=== PATIENT | female | born 1945 | race Caucasian/White ===

== ENCOUNTER 2019-10-11 17:24 | Inpatient (IN) | payer OTHER ==
[2019-10-11] MEDS ORDERED: LEVALBUTEROL 1.25 MG/3 ML NEB ONE (18:36)
--- NOTE | 2019-10-11 19:12 | RAD REPORT ---
EXAM DESCRIPTION: CT - Chest Abd Pelvis Wo Con - 10/11/2019 6:37 pm CLINICAL HISTORY: Shortness of breath and abdominal pain COMPARISON: 2015 TECHNIQUE: Computed axial tomography of the chest, abdomen and pelvis was obtained. Oral contrast wa s given. IV contrast was not requested. All CT scans are performed using dose optimization technique as appropriate and may include automated exposure control or mA/KV adjustment according to patient size. FINDINGS: The evaluation of mediastinum, skylar, vessels and solid organs is limited secondary to the lack of IV contrast administration Centrilobular emphysema. No mediastinal or hilar lymphadenopathy No pleural effusion. A pericardial effusion is not present The liver, spleen, pancreas, and adrenals appear grossly normal Small nonobstructing bilateral renal calculi. There is no evidence of diverticulitis. . Mild dilatation of several loops of jejunum with decompress ed distal jejunum and ileum IMPRESSION: COPD Small nonobstructing renal calculi Mild dilatation of several loops of jejunum may indicate a partial small bowel obstruction or ileus
[2019-10-11 19:27] LABS: Absolute Lymphocytes (CBC) 0.5 K/uL (0.7-4.9); Basophils % 0.6 % (0-1.3); Lymphocytes % 6.3 % (15.3-44.8); MPV 9.1 fL (7.6-11.3); RBC Red Blood Cell Count 4.36 M/uL (3.86-4.86)
[2019-10-11 19:28] LABS: Protime INR 0.99
--- NOTE | 2019-10-11 19:36 | RAD REPORT ---
EXAM DESCRIPTION: Lev Single View10/11/2019 6:59 pm CLINICAL HISTORY: sob COMPARISON: 2017 FINDINGS: The lungs are mildly hyperaerated The lungs appear clear of acute infiltrate. The heart is normal size IMPRESSION: No acute abnormalities displayed
[2019-10-11 19:43] LABS: ALT/SGPT 21 U/L (12-78); AST/SGOT 19 U/L (15-37); Albumin 3.3 g/dL (3.4-5.0); Alkaline Phosphatase 87 U/L (45-117); BUN Blood Urea Nitrogen 23 mg/dL (7-18); Bicarbonate 36 mmol/L (21-32); Bilirubin Direct < 0.1 mg/dL (0-0.2); Bilirubin Total 0.2 mg/dL (0.2-1.0); Glucose Level 145 mg/dL (74-106); NT PRO-BNP 1655 pg/mL (<125); Protein, Total 7.3 g/dL (6.4-8.2); Sodium Level 140 mmol/L (136-145); Troponin (Emerg Dept Use Only) < 0.02 ng/mL (0.0-0.045)
[2019-10-11 19:49] LABS: Magnesium 4.1 mg/dL (1.8-2.4)
[2019-10-11 20:23] LABS: Blood Morphology Comment NOT SEEN (NOT SEEN); Platelet Estimate ADEQ; Urine White Blood Cell Casts OK
--- NOTE | 2019-10-11 20:47 | ER ---
Nurse's Notes [facility] Name: Bebeto White Age: 73 yrs Sex: Female : 1945 Arrival Date: 10/11/2019 Time: 17:27 Bed 15 Private MD: Diagnosis: Small Bowel Obstruction Presentation: 10/11 17:40 Presenting complaint: Patient states: abdominal pain since 2 days ago. "I Just dont ls4 feel good". Transition of care: patient was not received from another setting of care. 17:40 Method Of Arrival: Ambulatory ls4 17:40 Risk Assessment: Do you want to hurt yourself or someone else? Patient reports no ls4 desire to harm self or others. Initial Sepsis Screen: Does the patient meet any 2 criteria? No. Patient's initial sepsis screen is negative. Does the patient have a suspected source of infection? No. Patient's initial sepsis screen is negative. Care prior to arrival: None. 17:40 Acuity: ROLF 2 ls4 10/12 00:47 Onset of symptoms is unknown. ls4 Triage Assessment: 10/11 20:04 General: Appears in no apparent distress. Behavior is calm, cooperative. Pain: Denies ls4 pain. Cardiovascular: Edema is 1+ to left foot and right foot. Respiratory: Reports shortness of breath at rest on exertion Airway is patent Respiratory effort is even, unlabored, Respiratory pattern is regular, Onset: The symptoms/episode began/occurred gradually, the patient has moderate shortness of breath Denies air hunger. GI: Bowel sounds hypoactive in right upper quadrant, left upper quadrant, right lower quadrant and left lower quadrant Abdomen is tender to palpation X 4 quads. Reports bloating. : No deficits noted. Derm: Skin is pink, warm \\T\\ dry. Musculoskeletal: No deficits noted. Historical: - Allergies: 20:02 BuSpar; ls4 20:02 Hydrocodone-Acetaminophen; ls4 20:02 myacin; ls4 20:02 Protonix; ls4 - PMHx: 20:02 COPD; Endometrosis; dumping syndrome; fatty liver; Hepatitis B; Hernia; Hypertension; ls4 Hypokalemia; ibs; Pancreatic problem; Migraines; Kidney stones; - Immunization history:: Adult Immunizations up to date, Last tetanus immunization: hep b positive . - Social history:: Smoking status: Patient denies any tobacco usage or history of. Patient/guardian denies using alcohol, street drugs, IV drugs, caffeine, The patient lives with family. - Ebola Screening: : No symptoms or risks identified at this time. Screenin:42 Abuse screen: Denies threats or abuse. Denies injuries from another. Nutritional ls4 screening: No deficits noted. Tuberculosis screening: No symptoms or risk factors identified. Fall Risk None identified. Assessment: 17:45 General: Appears in no apparent distress. obese, Behavior is calm, cooperative. Pain: ls4 Denies pain. Neuro: No deficits noted. Cardiovascular: Reports fatigue, Denies chest pain, Rhythm is regular. Respiratory: Airway is patent Respiratory effort is even, unlabored, shallow, Respiratory pattern is regular, Breath sounds are diminished. GI: Abdomen is non-distended, obese, Bowel sounds hypoactive in abdomen diffusely Abdomen is tender to palpation X 4 quads. : Denies burning with urination. Derm: Skin is pink, warm \\T\\ dry. Vital Signs: 20:12 BP 115 / 51; Pulse 80; Resp 26; Temp 98.5; Pulse Ox 90% on R/A; Weight 79.38 kg; Height ls4 0 ft. 1 in. (4 cm); Pain 0/10; 20:12 Body Mass Index 99858.67 (79.38 kg, 4 cm) ls4 20:12 NASAL CANULA APPLIED, 2 L ls4 ED Course: 17:27 Patient arrived in ED. mr 17:39 [facility] 17:39 Joe Jean-Baptiste MD is Attending Physician. [facility] 17:42 No provider procedures requiring assistance completed. ls4 17:42 Oxygen administration via nasal cannula \\T\\ 2L/min. ls4 17:42 Patient has correct armband on for positive identification. Placed in gown. Bed in low ls4 position. Call light in reach. Side rails up X2. bus driver/monitor on. Pulse ox on. NIBP on. Door closed. Warm blanket given. Pillow given. Head of bed elevated. Diet: Patient is NPO. 17:45 Marycruz Knapp, KIANNA is Primary Nurse. ls4 18:36 CT completed. Patient tolerated procedure well. Patient moved back from CT. bq 18:37 CT Chest Abdomen Pelvis W/O Contrast In Process Unspecified. EDMS 18:59 XRAY Chest (1 view) In Process Unspecified. EDMS 19:55 Basic Metabolic Panel Sent. ls4 19:55 CBC with Diff Sent. ls4 19:55 LFT's Sent. ls4 19:55 Magnesium Sent. ls4 19:55 NT PRO-BNP Sent. ls4 19:55 Inserted saline lock: 22 gauge in right antecubital area, using aseptic technique. ls4 Blood collected. 19:58 Triage completed. ls4 20:45 Joe Rodriguez MD is Hospitalizing Provider. [facility] 10/12 00:45 Arm band placed on. ls4 Administered Medications: 10/11 18:20 Drug: Xopenex (3) 1.25 mg Route: Inhalation; ls4 10/12 00:40 Not Given (Patient Refused): Mineral Oil 30 ml PO once ls4 Outcome: 10/11 20:46 Decision to Hospitalize by Provider. jm 23:20 Discharged to home ambulatory. ls4 23:20 Condition: stable ls4 23:20 Instructed on the need for admit. 23:21 Patient left the ED. ls4 Signatures: Dispatcher [employer] EDMS Pranav Fink PA PA jmm Rivera, Mary mr Quilty, Betty bq Stewart, Lisa, RN RN ls4
--- NOTE | 2019-10-11 20:47 | EDPHYS ---
Physician Documentation [facility] Name: Bebeto White Age: 73 yrs Sex: Female : 1945 Arrival Date: 10/11/2019 Time: 17:27 Bed 15 Private MD: ED Physician Joe Jean-Baptiste HPI: 10/11 18:04 This 73 yrs old Female presents to ER via Unassigned with complaints of Blood jmm Pressure Problem, Shortness Of Breath. 18:04 The patient has shortness of breath at rest. Onset: The symptoms/episode began/occurred jmm gradually, 3 day(s) ago. Duration: The symptoms are intermittent. The patient's shortness of breath is aggravated by nothing, is alleviated by nothing. Associated signs and symptoms: Pertinent negatives: chest pain. Patient states having a fall about 3 days ago with left sided abdominal pain. Denies vomiting, denies diarrhea. Patient has felt increasingly short of breath. . Historical: - Allergies: 20:02 BuSpar; ls4 20:02 Hydrocodone-Acetaminophen; ls4 20:02 myacin; ls4 20:02 Protonix; ls4 - PMHx: 20:02 COPD; Endometrosis; dumping syndrome; fatty liver; Hepatitis B; Hernia; Hypertension; ls4 Hypokalemia; ibs; Pancreatic problem; Migraines; Kidney stones; - Immunization history:: Adult Immunizations up to date, Last tetanus immunization: hep b positive . - Social history:: Smoking status: Patient denies any tobacco usage or history of. Patient/guardian denies using alcohol, street drugs, IV drugs, caffeine, The patient lives with family. - Ebola Screening: : No symptoms or risks identified at this time. ROS: 18:04 Constitutional: Positive for fatigue. jmm 18:04 Respiratory: Positive for cough, shortness of breath. 18:04 Abdomen/GI: Positive for abdominal pain. 18:04 All other systems are negative. Exam: 18:04 Constitutional: This is a well developed, well nourished patient who is awake, alert, jmm and in no acute distress. Head/Face: atraumatic. Eyes: EOMI, no conjunctival erythema appreciated ENT: Moist Mucus Membranes Neck: Trachea midline, Supple Chest/axilla: Normal chest wall appearance and motion. Cardiovascular: Regular rate and rhythm. No edema appreciated Respiratory: Normal respirations, no respiratory distress appreciated 18:04 Abdomen/GI: Inspection: abdomen appears normal, Bowel sounds: normal, Palpation: soft, mild abdominal tenderness, in the left upper quadrant and left lower quadrant. 18:04 Back: ROM is normal. 18:04 Musculoskeletal/extremity: ROM: intact in all extremities. 18:04 Skin: Appearance: Color: normal in color. 18:04 Neuro: Orientation: is normal, Mentation: is normal, Memory: is normal. 18:04 Psych: Behavior/mood is pleasant, cooperative. Vital Signs: 20:12 BP 115 / 51; Pulse 80; Resp 26; Temp 98.5; Pulse Ox 90% on R/A; Weight 79.38 kg; Height ls4 0 ft. 1 in. (4 cm); Pain 0/10; 20:12 Body Mass Index 48989.67 (79.38 kg, 4 cm) ls4 20:12 NASAL CANULA APPLIED, 2 L ls4 MDM: 17:56 Patient medically screened. [facility] 20:42 Data reviewed: vital signs, nurses notes. Counseling: I had a detailed discussion with lori the patient and/or guardian regarding: the historical points, exam findings, and any diagnostic results supporting the discharge/admit diagnosis, lab results, radiology results, the need for further work-up and treatment in the hospital. ED course: I discussed the patient with Dr. Jackson whom will consult on admission. I discussed the patient with Dr. Rodriguez whom accepted admission. . 10/11 18:04 Order name: Basic Metabolic Panel [facility] 10/11 18:04 Order name: CBC with Diff [facility] 10/11 18: Order name: LFT's [facility] 10/11 18:04 Order name: Magnesium [facility] 10/11 18:04 Order name: NT PRO-BNP [facility] 10/11 18:04 Order name: PT-INR; Complete Time: 19:52 [facility] 10/11 18: Order name: Troponin (emerg Dept Use Only); Complete Time: 19:52 [facility] 10/11 18:04 Order name: Blood Culture Adult (2) [facility] 10/11 18:04 Order name: Lactate; Complete Time: 19:52 [facility] 10/11 18: Order name: Procalcitonin; Complete Time: 20:02 [facility] 10/11 18:04 Order name: Basic Metabolic Panel; Complete Time: 19:52 EDMS 10/11 18:04 Order name: CBC with Automated Diff; Complete Time: 20:26 EDMS 10/11 18:04 Order name: Liver (Hepatic) Function; Complete Time: 19:52 EDMS 10/11 18:04 Order name: Magnesium; Complete Time: 19:52 EDMS 10/11 18:04 Order name: NT PRO-BNP; Complete Time: 19:52 EDMS 10/11 20:23 Order name: CBC Smear Scan; Complete Time: 20:26 EDMS 10/11 21:46 Order name: Comprehensive Metabolic Panel EDMS 10/11 21:46 Order name: Comprehensive Metabolic Panel EDMS 10/11 21:46 Order name: Lipase EDMS 10/11 21:46 Order name: Lipase EDMS 10/11 21:46 Order name: Magnesium EDMS 10/11 21:46 Order name: Magnesium EDMS 10/11 21:46 Order name: Phosphorus EDMS 10/11 21:46 Order name: Phosphorus EDMS 10/11 21:46 Order name: Protime (+INR) EDMS 10/11 21:46 Order name: Protime (+INR) EDMS 10/11 21:46 Order name: PTT, Activated Partial Thromb EDMS 10/11 21:46 Order name: PTT, Activated Partial Thromb EDMS 10/11 22:05 Order name: Urine Dipstick--Ancillary (enter results) lt1 10/11 22:07 Order name: Urine Dipstick-Ancillary; Complete Time: 22:57 EDMS 10/11 18:04 Order name: XRAY Chest (1 view); Complete Time: 19:36 [facility] 10/11 18:04 Order name: EKG; Complete Time: 18:05 [facility] 10/11 18:04 Order name: Cardiac monitoring; Complete Time: 19:55 [facility] 10/11 18:04 Order name: EKG - Nurse/Tech; Complete Time: 21:06 [facility] 10/11 18:04 Order name: IV Saline Lock; Complete Time: 19:55 [facility] 10/11 18:04 Order name: Labs collected and sent; Complete Time: 19:55 [facility] 10/11 18:04 Order name: O2 Per Protocol; Complete Time: 19:55 [facility] 10/11 18:04 Order name: O2 Sat Monitoring; Complete Time: 19:55 [facility] 10/11 18:07 Order name: CT Chest Abdomen Pelvis W/O Contrast; Complete Time: 19:24 [facility] 10/11 20:08 Order name: Vital Signs; Complete Time: 20:32 [facility] 10/11 21:46 Order name: CONS Physician Consult EDMS 10/11 21:47 Order name: NPO EDMS Administered Medications: 18:20 Drug: Xopenex (3) 1.25 mg Route: Inhalation; ls4 10/12 00:40 Not Given (Patient Refused): Mineral Oil 30 ml PO once ls4 Disposition: 15:21 Co-signature as Attending Physician, Joe Jean-Baptiste MD. ma2 Disposition: 10/11/19 20:46 Hospitalization ordered by Joe Rodriguez for Inpatient Admission. Preliminary diagnosis is Small Bowel Obstruction. - Bed requested for Telemetry/MedSurg (Inpatient). - Status is Inpatient Admission. ls4 - Condition is Stable. - Problem is new. - Symptoms are unchanged. UTI on Admission? No Signatures: Dispatcher [employer] EDWY Pranav Fink PA PA Joe Whiting MD MD ma2 Marycruz Knapp RN RN ls4 Annie Rausch lt1 Corrections: (The following items were deleted from the chart) 10/11 22:03 20:46 Hospitalization Ordered by Joe Rodriguez MD for Inpatient Admission. Preliminary lt1 diagnosis is Small Bowel Obstruction. Bed requested for Telemetry/MedSurg (Inpatient). Status is Inpatient Admission. Condition is Stable. Problem is new. Symptoms are unchanged. UTI on Admission? No. [facility] 23:21 22:03 10/11/2019 20:46 Hospitalization Ordered by Joe Rodriguez MD for Inpatient ls4 Admission. Preliminary diagnosis is Small Bowel Obstruction. Bed requested for Telemetry/MedSurg (Inpatient). Status is Inpatient Admission. Condition is Stable. Problem is new. Symptoms are unchanged. UTI on Admission? No. lt1
[2019-10-11] MEDS ORDERED: ZOLPIDEM TARTRATE 5 MG TABLET PO PRN (21:42)
[2019-10-11] MEDS ORDERED: ACETAMINOPHEN 500 MG TAB PO PRN (21:42)
[2019-10-11] MEDS ORDERED: NA CHLORIDE 0.9% 1,000 ML IV SCH (22:00)
[2019-10-11 22:07] LABS: Urine Blood NEGATIVE (NEG); Urine Glucose NEGATIVE (NEG); Urine Protein NEGATIVE (NEG); Urine pH 8.5 (5.0-7.0)
[2019-10-11] MEDS ORDERED: MIRTAZAPINE 15 MG TAB PO ONE (23:35)
[2019-10-11] MEDS ORDERED: clonazePAM 0.5 MG TAB PO ONE (23:38)
[2019-10-12] MEDS ORDERED: CEFOXITIN SODIUM 1 GM/VIAL IVPB SCH
[2019-10-12 00:04] VITALS: BMI 34.2
[2019-10-12] MEDS ORDERED: CEFOXITIN/SWI 1gm 1 GM/10 ML SYR ONE (01:30)
[2019-10-12 05:56] LABS: Absolute Lymphocytes (CBC) 1.1 K/uL (0.7-4.9); Basophils % 0.3 % (0-1.3); Hematocrit 31.2 % (36.0-45.0); Lymphocytes % 21.7 % (15.3-44.8); MPV 8.9 fL (7.6-11.3); RBC Red Blood Cell Count 3.68 M/uL (3.86-4.86)
[2019-10-12 05:59] LABS: Protime INR 0.96
[2019-10-12 06:16] LABS: Albumin 2.6 g/dL (3.4-5.0); Bilirubin Total 0.2 mg/dL (0.2-1.0); Phosphorus 4.9 mg/dL (2.5-4.9); Potassium 4.3 mmol/L (3.5-5.1)
[2019-10-12 06:17] LABS: Magnesium 3.9 mg/dL (1.8-2.4)
[2019-10-12] MEDS ORDERED: MIRTAZAPINE 15 MG TAB PO PRN (07:09)
[2019-10-12] MEDS ORDERED: ALBUTEROL INHALER 60 PUFF/8 GM IH PRN (07:09)
--- NOTE | 2019-10-12 07:25 | P.HP ---
Certification for Inpatient Patient admitted to: Observation With expected LOS: <2 Midnights Patient will require the following post-hospital care: None Practitioner: I am a practitioner with admitting privileges, knowledge of patient current condition, hospital course, and medical plan of care. Services: Services provided to patient in accordance with Admission requirements found in Title 42 Section 412.3 of the Code of Federal Regulations Patient History Date of Service: 10/11/19 Reason for admission: Small-bowel obstruction-partial verses ileus History of Present Illness: Patient is a 73-year-old female who presents to the hospital with abdominal pain and intractable nausea and vomiting. Patient was having significant pain and came to the ER. She states she has been constipated and has not had a good bowel movement in a few days. She did try to take a laxative with very little relief. Sister pain was getting worse she came to the ER. In the ER x-ray revealed partial small-bowel obstruction worsen ileus. Patient was admitted for further observation. Patient does state that she is having flatus. Unlikely to be an obstruction. Will start patient on a diet in the morning and if tolerates then possible discharge if okay with General surgery. Patient does have a history of a jejunal bypass that occurred in the 1950s. She states [place] was one of the 1st [place] the [place]. She has done well since that procedure without a lot of difficulties. Patient has had colonoscopy in the past that did not reveal any abnormalities. Patient will be admitted for further treatment. Allergies buspirone HCl [From BuSpar] Adverse Reaction (Verified 09/20/12 16:23) hallucinate pantoprazole [From Protonix] Adverse Reaction (Verified 03/11/17 21:58) Dizziness Hydrocodone-Aceta Allergy (Uncoded 03/11/17 21:58) Nausea/Vomiting Hydrocodone-A Adverse Reaction (Uncoded 03/11/17 21:58) Nausea/Vomiting Hydrocodone-Kev Adverse Reaction (Uncoded 03/11/17 21:58) Nausea/Vomiting myacin Adverse Reaction (Uncoded 03/11/17 21:58) severe dehydration mycin Adverse Reaction (Uncoded 09/20/12 16:23) severe dehydration Home Medications: Albuterol Sulfate [Proair Hfa] 2 puff IH QID PRN 04/03/16 Diltiazem HCl [Diltiazem 24Hr Cd] 90 mg PO BID 04/03/16 Sertraline HCl 100 mg PO DAILY 04/03/16 Umeclidinium Brm/Vilanterol Tr [Anoro Ellipta 62.5-25 Mcg INH] 1 puff IH DAILY 04/03/16 Lipase/Protease/Amylase [Creon Dr 36,000 Units Capsule] 1 tab PO AC 03/11/17 Potassium Chloride [Klor-Con M10] 10 meq PO BID 03/11/17 Acetaminophen [Tylenol Arthritis] 650 mg PO Q8HP PRN 10/12/19 Calcium Carb/Vitamin D3/Vit K1 [Calcium + D Soft Chewable Tab] 1 tab PO BID Ferrous Gluconate 324 mg PO DAILY 10/12/19 Folic Acid 1 mg PO DAILY 10/12/19 Furosemide 40 mg PO BID 10/12/19 Hydralazine HCl 50 mg PO TID 10/12/19 Mirtazapine [Remeron] 15 mg PO BEDTIME PRN 10/12/19 Omeprazole [Prilosec] 40 mg PO DAILY 10/12/19 Spironolactone 50 mg PO DAILY 10/12/19 clonazePAM [Clonazepam] 0.5 mg PO TIDP PRN 10/12/19 traMADol HCL [Ultram*] 50 mg PO TIDP PRN 10/12/19 - Past Medical/Surgical History Has patient received pneumonia vaccine in the past: No Diabetic: No -: GERD -: HTN, left lower lobe lung cancer stage IA resected in 2016 at [facility] -: COPD -: Fatty liver -: History of pancreatic dysfunction -: Migraines -: IBS/dumping syndrome -: Kidney stones with ureteral stent -: Endometriosis -: History of hepatitis -: Tonsillectomy -: Cholecystectomy -: D&C -: CATARACT REMOVAL -: TUMMY TUCK -: Tubal ligation -: JEJUNAL BYPASS -: Left lobe lobectomy Psychosocial/ Personal History: The patient is of 51 years. She has 1 child. She does not work. - Family History Mother Medical History: Lung disease Notes: COPD Father Medical History: Lung disease Notes: COPD - Social History Smoking Status: Former smoker Alcohol use: No CD- Drugs: No Caffeine use: No Place of Residence: Home Review of Systems 10-point ROS is otherwise unremarkable Physical Examination - Vital Signs Temperature: 98.3 F Blood Pressure: 120/56 Pulse: 75 Respirations: 18 Pulse Ox (%): 96 - Physical Exam General: Alert, In no apparent distress, Oriented x3 HEENT: Atraumatic, PERRLA, Mucous membr. moist/pink, EOMI, Sclerae nonicteric Neck: Supple, 2+ carotid pulse no bruit, No LAD, Without JVD or thyroid abnormality Respiratory: Clear to auscultation bilaterally, Normal air movement Cardiovascular: Regular rate/rhythm, Normal S1 S2, No murmurs Gastrointestinal: Normal bowel sounds, Soft and benign, Non-distended, No rebound, No guarding, Distended Musculoskeletal: No clubbing, No swelling, No tenderness Integumentary: No rashes Neurological: Normal gait, Normal speech, Normal strength at 5/5 x4 extr, Normal tone, Sensation intact, Cranial nerves 3-12 intact, Normal affect Lymphatics: No axilla or inguinal lymphadenopathy - Studies Laboratory Data (last 24 hrs) 10/11/19 19:10: PT 11.7, INR 0.99 10/11/19 19:10: WBC 8.2, Hgb 11.7 L, Hct 37.0, Plt Count 222 10/11/19 19:10: Sodium 140, Potassium 4.0, BUN 23 H, Creatinine 2.13 H, Glucose 145 H, Magnesium 4.1 H*, Total Bilirubin 0.2, AST 19, ALT 21, Alkaline Phosphatase 87 Assessment & Plan - Problems (Diagnosis) (1) Partial small bowel obstruction Current Visit: Yes Status: Acute (2) Ileus Current Visit: Yes Status: Acute (3) H/O abdominal surgery Current Visit: Yes Status: Acute (4) Anemia Current Visit: No Status: Acute Qualifiers: Anemia type: unspecified type Qualified Code(s): D64.9 - Anemia, unspecified (5) COPD (chronic obstructive pulmonary disease) Current Visit: No Status: Chronic Qualifiers: COPD type: chronic bronchitis (6) History of lung cancer Current Visit: No Status: Chronic - Plan Plan: 1. IV hydration 2. IV antibiotics 3. Pain control 4. Liquid diet 5. Surgery consultation 6. Correct electrolyte abnormality 7. GI and DVT prophylaxis Discharge Plan: Home Plan to discharge in: Greater than 2 days - Advance Directives Does patient have a Living Will: Yes Does patient have a Durable POA for Healthcare: Yes - Code Status/Comfort Care Code Status Assessed: Yes Code Status: Full Code Critical Care: No Time Spent Managing PTS Care (In Minutes): 45
[2019-10-12] MEDS ORDERED: PROTEASE PO SCH (07:30)
[2019-10-12] MEDS ORDERED: LIPASE PO SCH (07:30)
[2019-10-12] MEDS ORDERED: AMYLASE PO SCH (07:30)
[2019-10-12] MEDS ORDERED: HOME MED 1 EA UNK (Spironolactone [Spironolactone] 50 MG) PO SCH (09:00)
[2019-10-12] MEDS ORDERED: HOME MED 1 EA UNK (Omeprazole [Prilosec] 40 MG) PO SCH (09:00)
[2019-10-12] MEDS: Umeclidinium Brm/Vilanterol Tr [Anoro Ellipta 62.5-25 Mcg Inh] IH SCH (09:00)
[2019-10-12] MEDS: CALCIUM CARB PO SCH ×2 (09:00→20:56)
[2019-10-12] MEDS ORDERED: HOME MED 1 EA UNK (Hydralazine Hcl [Hydralazine Hcl] 50 MG) PO SCH (09:00)
[2019-10-12] MEDS ORDERED: HOME MED 1 EA UNK (Potassium Chloride [Klor-Con M10] 10 MEQ) PO SCH (09:00)
[2019-10-12] MEDS ORDERED: ENOXAPARIN 40 MG/0.4 ML SQ SCH (09:00)
[2019-10-12] MEDS: VIT K1 PO SCH ×2 (09:00→20:56)
[2019-10-12] MEDS: VITAMIN D3 PO SCH ×2 (09:00→20:56)
[2019-10-12] MEDS ORDERED: FERROUS GLUCONATE 324 MG PO SCH (09:00)
[2019-10-12] MEDS: [UNRECOGNIZED DRUG - OTHER] PO SCH ×2 (09:00→20:56)
[2019-10-12] MEDS ORDERED: DILTIAZEM HCL 90 MG PO SCH ×2 (09:00→21:00)
[2019-10-12] MEDS: ENOXAPARIN 30 MG/0.3 ML SQ SCH (09:00)
--- NOTE | 2019-10-12 09:25 | P.PN ---
Subjective Date of Service: 10/12/19 Primary Care Provider: Dr. Gonzalez; Card-Dr. Jean Baptiste; GI-Dr. Calix Chief Complaint: Small-bowel obstruction-partial verses ileus Subjective: Improving, Doing well (Patient has had passage of gas. Patient reported bowel movement yesterday. Patient feels better. No significant nausea vomiting, abdominal pain.) Physical Examination - Vital Signs Temperature: 97.6 F Blood Pressure: 142/63 Pulse: 96 Respirations: 17 Pulse Ox (%): 95 - Physical Exam General: Alert, In no apparent distress, Oriented x3, Cooperative HEENT: Atraumatic Neck: Supple Respiratory: Clear to auscultation bilaterally, Normal air movement Cardiovascular: Normal pulses, Regular rate/rhythm Gastrointestinal: Normal bowel sounds, Soft and benign, Non-distended, No tenderness, No rebound, No guarding Musculoskeletal: No erythema, No tenderness, No warmth Integumentary: No tenderness/swelling, No erythema, No warmth, No cyanosis Neurological: Normal speech, Normal strength at 5/5 x4 extr, Normal tone, Normal affect - Studies Laboratory Data (last 24 hrs) 10/11/19 19:10: PT 11.7, INR 0.99 10/11/19 19:10: WBC 8.2, Hgb 11.7 L, Hct 37.0, Plt Count 222 10/11/19 19:10: Sodium 140, Potassium 4.0, BUN 23 H, Creatinine 2.13 H, Glucose 145 H, Magnesium 4.1 H*, Total Bilirubin 0.2, AST 19, ALT 21, Alkaline Phosphatase 87 Medications List Reviewed: Yes Assessment & Plan Discharge Plan: Home Plan to discharge in: 24 Hours Physician Review Additional Text: Impression: Abdominal pain, nausea and vomiting secondary to partial small bowel obstruction COPD on chronic oxygen Anemia of chronic disease GERD with history of angiodysplasia History pancreatic dysfunction Depression with anxiety History of lung cancer with resection Chronic renal disease stage III Plan: Abdominal pain, nausea and vomiting secondary to partial small bowel obstruction : Patient doing better. No significant abdominal pain, nausea and vomiting. Patient reported bowel movement yesterday. Passage of gas noted. Patient desires food. Will start with a clear liquid diet this morning and advanced to GI soft. If much improved then will consider discharge later today. Encourage ambulation. Await further evaluation by surgery and recommendation. Patient is to see GI tomorrow for EGD in [place]. COPD on chronic oxygen: Continue with home medication. Maintain oxygen above 93%. Anemia of chronic disease: Will monitor closely. Patient with history of angiodysplasia. Patient to have EGD tomorrow. GERD with history of angiodysplasia: Continue with medication. Patient is scheduled to have a EGD tomorrow in [place] with her GI specialist. History pancreatic dysfunction: Continue with pancreatic enzymes. Patient has follow up with GI tomorrow. Depression with anxiety: Continue medication. History of lung cancer with resection: Continues above. Chronic renal disease stage III: Overall stable. Will discontinue IV fluids. Continue 1500 cc per day fluid restriction. Patient seen by nephrology in [place]. Time Spent Managing Pts Care (In Minutes): 55
[2019-10-12] MEDS: TRAMADOL HCL 50 MG TAB PO PRN ×2 (09:50→23:42)
[2019-10-12] MEDS: FOLIC ACID 1 MG TABLET PO SCH (09:51)
[2019-10-12] MEDS: SERTRALINE HCL 50 MG TAB PO SCH (09:51)
[2019-10-12] MEDS: POTASSIUM CL SA 10 MEQ TAB PO SCH ×2 (09:52→20:55)
[2019-10-12] MEDS: FUROSEMIDE 40 MG TABLET PO SCH ×2 (09:52→20:55)
[2019-10-12] MEDS ORDERED: SPIRONOLACTONE 25 MG TABLET PO SCH ×2 (10:00→18:00)
[2019-10-12] MEDS ORDERED: PRO AIR INHALER IH PRN (10:25)
[2019-10-12] MEDS ORDERED: CEFOXITIN/SWI 1gm 1 GM/10 ML SYR IVP SCH (12:00)
[2019-10-12] MEDS: LIPASE/PROTEASE/AMYLASE CAP PO SCH ×2 (12:44→17:05)
[2019-10-12] MEDS: HYDROCODONE/APAP 7.5/325 MG TAB PO PRN ×2 (13:53→20:54)
[2019-10-12] MEDS: HYDRALAZINE HCL 25 MG TABLET PO SCH ×2 (15:07→20:54)
[2019-10-12] MEDS ORDERED: PANTOPRAZOLE 40MG TABLET PO SCH (18:00)
[2019-10-12] MEDS: clonazePAM 0.5 MG TAB PO PRN (18:55)
[2019-10-12] MEDS ORDERED: FAMOTIDINE 20 MG TAB PO SCH (21:00)
[2019-10-12] MEDS ORDERED: DILTIAZEM HCL 180 MG SR CAP PO SCH (21:00)
[2019-10-12] MEDS ORDERED: MIRTAZAPINE 15 MG TAB PO ONE (23:35)
[2019-10-13] MEDS: HYDROCODONE/APAP 7.5/325 MG TAB PO PRN ×3 (02:26→15:48)
[2019-10-13 06:18] VITALS: O2SAT 93
[2019-10-13] MEDS ORDERED: PANTOPRAZOLE 40MG TABLET PO SCH (07:30)
[2019-10-13] MEDS ORDERED: PNEUMOCOCCAL VACCINE 0.5 ML IMVAC ONE (08:00)
[2019-10-13] MEDS ORDERED: CALCIUM CARB 500MG/VIT D 200 IU TAB PO SCH (09:00)
[2019-10-13] MEDS: ENOXAPARIN 30 MG/0.3 ML SQ SCH (09:00)
[2019-10-13] MEDS ORDERED: FAMOTIDINE 20 MG TAB PO SCH (09:00)
[2019-10-13] MEDS ORDERED: FERROUS GLUCONATE 324 MG TAB PO SCH (09:00)
[2019-10-13] MEDS: Umeclidinium Brm/Vilanterol Tr [Anoro Ellipta 62.5-25 Mcg Inh] IH SCH (09:00)
[2019-10-13] MEDS: LIPASE/PROTEASE/AMYLASE CAP PO SCH ×3 (09:09→16:24)
[2019-10-13] MEDS: FUROSEMIDE 40 MG TABLET PO SCH (09:09)
[2019-10-13] MEDS: SERTRALINE HCL 50 MG TAB PO SCH (09:11)
[2019-10-13] MEDS: FOLIC ACID 1 MG TABLET PO SCH (09:12)
[2019-10-13] MEDS: POTASSIUM CL SA 10 MEQ TAB PO SCH (09:13)
[2019-10-13] MEDS: HYDRALAZINE HCL 25 MG TABLET PO SCH ×2 (09:16→13:08)
[2019-10-13] MEDS: ONDANSETRON 4 MG/2 ML VIAL IV PRN ×2 (09:18→15:48)
--- NOTE | 2019-10-13 09:28 | P.DS ---
Admission Date: 10/11/19 Discharge Date: 10/13/19 Primary Care Provider: Dr. Gonzalez; Card-Dr. Jean Baptiste; GI-Dr. Calix Disposition: ROUTINE DISCHARGE Discharge Condition: GOOD Reason for Admission: Small-bowel obstruction-partial verses ileus Consultations: Surgery-Dr. Jackson Procedures: CXR: COMPARISON: 2017 FINDINGS: The lungs are mildly hyperaerated The lungs appear clear of acute infiltrate. The heart is normal size IMPRESSION: No acute abnormalities displayed CT scan: COMPARISON: 2016 TECHNIQUE: Computed axial tomography of the chest, abdomen and pelvis was obtained. Oral contrast was given. IV contrast was not requested. All CT scans are performed using dose optimization technique as appropriate and may include automated exposure control or mA/KV adjustment according to patient size. FINDINGS: The evaluation of mediastinum, skylar, vessels and solid organs is limited secondary to the lack of IV contrast administration Centrilobular emphysema. No mediastinal or hilar lymphadenopathy No pleural effusion. A pericardial effusion is not present The liver, spleen, pancreas, and adrenals appear grossly normal Small nonobstructing bilateral renal calculi. There is no evidence of diverticulitis. . Mild dilatation of several loops of jejunum with decompressed distal jejunum and ileum IMPRESSION: COPD Small nonobstructing renal calculi Mild dilatation of several loops of jejunum may indicate a partial small bowel obstruction or ileus Medical Problem list: Abdominal pain, nausea and vomiting secondary to partial small bowel obstruction , resolved COPD requiring chronic oxygen Anemia of chronic disease GERD with history of angiodysplasia History pancreatic dysfunction Depression with anxiety History of lung cancer with resection Chronic renal disease stage III Chronic diastolic CHF Brief History of Present Illness: 73-year-old female with multiple medical problems presented to emergency room with increased nausea and vomiting with abdominal pain. Patient was evaluated emergency room. Patient found to have partial small-bowel obstruction. Patient was admitted for further evaluation and treatment. Hospital Course: Patient presented with abdominal pain, nausea and vomiting. This was secondary to a partial small-bowel obstruction. During the course of her stay her diet was slowly advanced. Her condition resolved. At discharge she is able the tolerate a GI soft diet. She is without any significant abdominal pain, nausea or vomiting. She has passed gas and had bowel movement. Patient would be discharged home. Patient is to see GI here soon for EGD in [place]. Patient with history of chronic constipation. Recommend to continue with a stool softener. Further recommendations can come from her GI specialist. Patient with history of COPD and history of lung cancer with resection. During the course her stay it was found that the patient required oxygen. Prior to discharge home oxygen will be arranged to maintain sats above 93%. Patient sees pulmonology in [place]. Recommend a follow up with pulmonology in 1-2 weeks to further address and monitor. Patient will continue with her COPD medication-Anoro 1 puff daily and Pro air 2 puffs 3 times a day as needed for shortness of breath.. Patient also with underlying anemia of chronic disease. Patient will continue with iron 325 mg daily and folic acid 1 mg daily.. Recommend follow up with her PCP to further monitor. Patient with history of GERD and angiodysplasia. Patient is to have EGD here soon with GI. Patient may continue with Prilosec 40 mg twice daily. Patient with hypertension. At discharge she will continue with diltiazem CD 90 mg 1 pill twice daily and hydralazine 50 mg 1 pill 3 times a day. Further adjustment can be done by her PCP or cardiology. Patient with chronic diastolic CHF. Patient will continue with a 1500 cc per day fluid restriction and low-salt diet. Patient will continue with diuretic therapy including Lasix 40 mg 1 pill twice daily, Aldactone 50 mg daily, and potassium supplementation. Further adjustment can be done by her piper helper. Patient with depression and anxiety. At discharge she will continue with sertraline 100 mg daily, clonazepam 0.5 mg 3 times a day as needed for anxiety, and mirtazapine 15 mg at bedtime. Patient with pancreatic dysfunction. At discharge she will continue with Creon 1 pill with meals. Patient may continue with her chronic pain medication-tramadol 50 mg 3 times a day as needed for pain. Limited supply of medication will be provided. Patient with chronic renal disease stage III. This has remained stable. She may follow up with her furniture stainer in [place] to further address. Vital Signs/Physical Exam: Temp Pulse Resp BP Pulse Ox 97.3 F 76 18 132/60 93 10/13/19 04:00 10/13/19 09:09 10/13/19 04:00 10/13/19 09:09 10/13/19 04:00 General: Alert, In no apparent distress, Oriented x3, Cooperative HEENT: Atraumatic Neck: Supple Respiratory: Clear to auscultation bilaterally, Normal air movement Cardiovascular: Normal pulses, Regular rate/rhythm Gastrointestinal: Normal bowel sounds, Soft and benign, Non-distended, No tenderness, No masses, No rebound, No guarding Musculoskeletal: No erythema, No tenderness, No warmth Integumentary: No tenderness/swelling, No erythema, No warmth, No cyanosis Neurological: Normal speech, Normal strength at 5/5 x4 extr, Normal tone, Normal affect Laboratory Data at Discharge: WBC 5.3 K/uL (4.3-10.9) D 10/12/19 05:15 Hgb 9.9 g/dL (12.0-15.0) L 10/12/19 05:15 Hct 31.2 % (36.0-45.0) L D 10/12/19 05:15 Plt Count 153 K/uL (152-406) D 10/12/19 05:15 PT 11.3 SECONDS (9.5-12.5) 10/12/19 05:15 INR 0.96 10/12/19 05:15 APTT 24.7 SECONDS (24.3-36.9) 10/12/19 05:15 Sodium 143 mmol/L (136-145) 10/12/19 05:15 Potassium 4.3 mmol/L (3.5-5.1) 10/12/19 05:15 BUN 19 mg/dL (7-18) H 10/12/19 05:15 Creatinine 1.84 mg/dL (0.55-1.3) H 10/12/19 05:15 Glucose 87 mg/dL (74-106) 10/12/19 05:15 Phosphorus 4.9 mg/dL (2.5-4.9) 10/12/19 05:15 Magnesium 3.9 mg/dL (1.8-2.4) H* 10/12/19 05:15 Total Bilirubin 0.2 mg/dL (0.2-1.0) 10/12/19 05:15 AST 14 U/L (15-37) L 10/12/19 05:15 ALT 16 U/L (12-78) 10/12/19 05:15 Alkaline Phosphatase 64 U/L (45-117) 10/12/19 05:15 Lipase 46 U/L (73-393) L 10/12/19 05:15 Home Medications: Albuterol Sulfate [Proair Hfa] 2 puff IH QID PRN 04/03/16 Diltiazem HCl [Diltiazem 24Hr Cd] 90 mg PO BID 04/03/16 Sertraline HCl 100 mg PO DAILY 04/03/16 Umeclidinium Brm/Vilanterol Tr [Anoro Ellipta 62.5-25 Mcg INH] 1 puff IH DAILY 04/03/16 Lipase/Protease/Amylase [Sangeetaon Dr 36,000 Units Capsule] 1 tab PO AC 03/11/17 Potassium Chloride [Klor-Con M10] 10 meq PO BID 03/11/17 Acetaminophen [Tylenol Arthritis] 650 mg PO Q8HP PRN 10/12/19 Calcium Carb/Vitamin D3/Vit K1 [Calcium + D Soft Chewable Tab] 1 tab PO BID Ferrous Gluconate 324 mg PO DAILY 10/12/19 Folic Acid 1 mg PO DAILY 10/12/19 Furosemide 40 mg PO BID 10/12/19 Hydralazine HCl 50 mg PO TID 10/12/19 Mirtazapine [Remeron] 15 mg PO BEDTIME PRN 10/12/19 Omeprazole [Prilosec] 40 mg PO BID 10/12/19 Spironolactone 50 mg PO DAILY 10/12/19 clonazePAM [Clonazepam] 0.5 mg PO TIDP PRN 10/12/19 traMADol HCL [Ultram*] 50 mg PO TIDP PRN #15 tab 10/13/19 New Medications: traMADol HCL [Ultram*] 50 mg PO TIDP PRN #15 tab PRN Reason: Pain Scale 2-4 (Mild) Patient Discharge Instructions: 1. Recommend follow up with her PCP in 1 week to follow up this hospitalization. 2. Patient presented with abdominal pain, nausea and vomiting. This was secondary to a partial small-bowel obstruction. During the course of her stay her diet was slowly advanced. Her condition resolved. At discharge she is able the tolerate a GI soft diet. She is without any significant abdominal pain, nausea or vomiting. She has passed gas and had bowel movement. Patient would be discharged home. Patient is to see GI here soon for EGD in [place]. Patient with history of chronic constipation. Recommend to continue with a stool softener. Further recommendations can come from her GI specialist. 3. Patient with history of COPD and history of lung cancer with resection. During the course her stay it was found that the patient required oxygen. Prior to discharge home oxygen will be arranged to maintain sats above 93%. Patient sees pulmonology in [place]. Recommend a follow up with pulmonology in 1-2 weeks to further address and monitor. Patient will continue with her COPD medication-Anoro 1 puff daily and Pro air 2 puffs 3 times a day as needed for shortness of breath.. 4. Patient also with underlying anemia of chronic disease. Patient will continue with iron 325 mg daily and folic acid 1 mg daily.. Recommend follow up with her PCP to further monitor. 5. Patient with history of GERD and angiodysplasia. Patient is to have EGD here soon with GI. Patient may continue with Prilosec 40 mg twice daily. 6. Patient with hypertension. At discharge she will continue with diltiazem CD 90 mg 1 pill twice daily and hydralazine 50 mg 1 pill 3 times a day. Further adjustment can be done by her PCP or cardiology. 7. Patient with chronic diastolic CHF. Patient will continue with a 1500 cc per day fluid restriction and low-salt diet. Patient will continue with diuretic therapy including Lasix 40 mg 1 pill twice daily, Aldactone 50 mg daily, and potassium supplementation. Further adjustment can be done by her piper helper. 8. Patient with depression and anxiety. At discharge she will continue with sertraline 100 mg daily, clonazepam 0.5 mg 3 times a day as needed for anxiety, and mirtazapine 15 mg at bedtime. 9. Patient with pancreatic dysfunction. At discharge she will continue with Creon 1 pill with meals. 10. Patient may continue with her chronic pain medication-tramadol 50 mg 3 times a day as needed for pain. A limited supply of medication will be provided. Diet: AHA Activity: Fall precautions Time spent managing pt's care (in minutes): 55
[2019-10-13] MEDS: clonazePAM 0.5 MG TAB PO PRN (11:19)
[2019-10-13] MEDS: TRAMADOL HCL 50 MG TAB PO PRN (13:08)
[2019-10-13 18:07] VITALS: BP 117/53; TEMP 99.1
== END 2019-10-13 17:59 | disposition home or self-care (01) | DRG 389 ==
LOC: ER 17:24 → ERHOLD 22:04 → 2ND 22:49
PROVIDERS: ADMIT Family Medicine; ATTEND Hospitalist
DX: K56.600 Partial intestinal obstruction, unspecified as to cause (principal); I13.0 Hypertensive heart and chronic kidney disease with heart failure and stage 1 through stage 4 chronic kidney disease, or unspecified chronic kidney disease; I50.32 Chronic diastolic (congestive) heart failure; J44.9 Chronic obstructive pulmonary disease, unspecified; D64.9 Anemia, unspecified; F41.8 Other specified anxiety disorders; N18.3 Chronic kidney disease, stage 3 (moderate); K21.9 Gastro-esophageal reflux disease without esophagitis; Z99.81 Dependence on supplemental oxygen; Z85.118 Personal history of other malignant neoplasm of bronchus and lung; K86.89 Other specified diseases of pancreas
CPT/HCPCS: 36415; 71045; 71250; 74176; 80048; 80053; 80076; 81003; 83605; 83690; 83735; 83880; 84100; 84145; 84484; 85025; 85610; 85730; 87040; 99285; J0694; J1650; J2405; J7030

== ENCOUNTER 2020-05-10 13:30 | Emergency (ER) | payer OTHER ==
--- OUTSIDE RECORDS SUMMARY | 2020-05-10 13:56 | XMS REPORT | Clinical Summary ---
:1945 Author Organization [facility] Address [address] [place] [address] Care Team Providers Name Role Phone Jania Adams MD Primary Care Provider Allergies Active Allergy Reactions Severity Noted Date Comments Aminoglycosides GI Intolerance 05/18/2016 Denies winter h Sulfamethoxazole-Trimeth Other (See 04/09/2017 Psy chiatric oprim Comments) episode/Seroton in syndrom Glycopyrrolate-Formotero 01/31/2018 l Buspirone Other (See 04/17/2016 hallucinations Comments) Erythromycin GI Intolerance 04/09/2017 All Mycins Hydrocodone Other (See 04/09/2017 Potential psych iatric Comments) disorder Levofloxacin GI Intolerance 02/10/2019 Oxybutynin Other (See 04/09/2017 Poss psychiatri c Comments) episode/Seroton in syndrome Pantoprazole Other (See 04/17/2016 dizziness Comments) Tetanus Vaccines And Rash Low 04/17/2016 Toxoid Medications Medication Sig Dispensed Refills Start End Status Date Date ANORO ELLIPTA 62.5-25 Inhale 1 puff 3 02/29/20 Active mcg/actuation blister daily. 16 with device fstumb-lnfzitol-xvxcp Take 1 capsule 0 Active se (CREON) by mouth with 36,000-114,000- snacks (And TID 180,000 unit with meals). capsule,delayed release(DR/EC) folic acid (FOLVITE) Take 1 mg by 0 03/26/20 Active 1 MG tablet mouth daily. 17 ipratropium-albuterol Take 3 mL by 0 Active (DUO-NEB) 0.5-2.5 nebulization as mg/3 mL nebulizer needed for wheezing. sertraline (ZOLOFT) Take 1 tablet 30 tablet 3 04/09/20 Active 100 MG tablet (100 mg total) 19 by mouth every morning. diltiazem (CardIZEM) Take 90 mg by 0 Active 90 MG tablet mouth 2 (two) times a day. ferrous gluconate Take 1 tablet 30 tablet 11 08/04/20 Active (FERGON) 324 MG (324 mg total) 19 020 tablet by mouth daily with breakfast. hydrALAZINE Take 50 mg by 0 Acti ve (APRESOLINE) 50 MG mouth 3 (three) tablet times a day. budesonide Take 0.5 mg by 0 Acti ve (PULMICORT) 0.5 mg/2 nebulization 2 mL nebulizer solution (two) times a day. cholecalciferol, Take 1 tablet 0 Active vitamin D3, (VITAMIN by mouth daily. D3) 125 mcg (5,000 unit) tablet acetaminophen Take by mouth. 0 A ctive (TYLENOL 8 HOUR ORAL) mirtazapine (REMERON) Take 15 mg by 0 Active 15 MG tablet mouth nightly. spironolactone Take 50 mg by 0 A ctive (ALDACTONE) 25 MG mouth 2 (two) tablet times a day. omeprazole (PriLOSEC) Take 40 mg by 0 Active 40 MG capsule mouth 2 (two) times a day. furosemide (LASIX) 40 Take 40 mg by 0 Active mg tablet mouth daily. clonAZEPAM (KlonoPIN) Take 1 mg by 0 Active 1 MG tablet mouth 2 (two) times a day as needed for seizures. flecainide acetate Take by mouth 2 0 Active (FLECAINIDE ORAL) (two) times a day. Unknown mg ranitidine (ZANTAC) Take 150 mg by 0 10/22 Discontinued 150 MG tablet mouth daily. 020 Daily at 1300 cyanocobalamin 1000 Take 1,000 mcg 0 10/22 Discontinued MCG tablet by mouth daily. 020 MAG HYDROX/ALUMINUM Take 5 mL by 0 Discontinued HYDROX/SMC (MYLANTA mouth 2 (two) 020 (Stop Taking at ORAL) times a day as Disch arge) needed. PROAIR HFA 90 Inhale 2 puffs 0 10/12/19 D iscontinued mcg/actuation inhaler every 6 (six) 17 020 (Stop Taking at hours as Discharge) needed. acetaminophen Take 325 mg by 0 D iscontinued (TYLENOL) 325 MG mouth every 6 020 (Stop Taking at tablet (six) hours as Disch arge) needed for fever. lidocaine (LIDODERM) 0 10/01/19 Discontinued 5 % 18 020 (Med List Cleanup) ondansetron (ZOFRAN) Take 4 mg by 0 12/21/19 Discontinued 4 MG tablet mouth every 8 020 (Sto p Taking at (eight) hours Discha rge) as needed for nausea or vomiting. potassium citrate Take 1 tablet 180 tablet 3 01/07/20 Discontinued (UROCIT-K) 15 mEq (15 mEq total) 020 tablet extended by mouth 2 releaseIndications: (two) times a Recurrent kidney day. stones calcium Take 2 tablets 180 tablet 6 01/07/20 Disc ontinued citrate-vitamin D2 by mouth 2 020 (Stop Taking at 250-100 mg-unit per (two) times a Discharge) tablet day. omeprazole (PriLOSEC) Take 40 mg by 0 02/23 Discontinued 40 MG capsule mouth daily 019 (Sto p Taking at before Discharge) breakfast. clonAZEPAM (KlonoPIN) Take 1 tablet 90 tablet 0 04/09/2006/24 5/2 0.5 MG tablet (0.5 mg total) 019 by mouth 2 (two) times a day as needed for seizures for up to 90 days. mirtazapine (REMERON) Take 1 tablet 30 tablet 3 04/09/20 02/0 2/2 Discontinued 15 MG tablet (15 mg total) 020 (St op Taking at by mouth Discharge) nightly. traMADol (ULTRAM) 50 Take 50 mg by 0 10/09 Discontinued mg tablet mouth 3 (three) 020 times a day as needed for moderate pain. metaxalone (SKELAXIN) Take 1 tablet 30 tablet 0 05/13/20 08/ 8/2 Discontinued 800 MG every 8 hrs prn 19 019 (Reo rder) tabletIndications: muscle spasms Acute right lumbar radiculopathy methylPREDNISolone follow package 21 tablet 0 05/13/20 (MEDROL, MELISSA,) 4 mg directions 019 tabletIndications: Acute right lumbar radiculopathy acetaminophen-codeine Acute Pain. 30 tablet 0 05/21/20 (TYLENOL WITH CODEINE Take 1-2 019 #3) 300-30 mg per tablets every 6 tabletIndications: hrs prn acute pain moderate to severe pain metaxalone (SKELAXIN) Take 1 tablet 30 tablet 0 05/21/2005/25 Discontinued 800 MG every 8 hrs prn 019 (Reo rder) tabletIndications: muscle spasms Acute right lumbar radiculopathy metaxalone (SKELAXIN) Take 1 tablet 30 tablet 0 06/10/2010/26 Discontinued 800 MG every 8 hrs prn 020 (Sto p Taking at tabletIndications: muscle spasms Discharge) Acute right lumbar radiculopathy acetaminophen-codeine chronic pain. 30 tablet 0 06/10/2006/24 (TYLENOL WITH CODEINE Take 1-2 019 #3) 300-30 mg per tablets every 6 tabletIndications: hrs prn chronic pain moderate to severe pain ferrous sulfate Take 1 tablet 90 tablet 0 07/30/20 (FERROUSUL) 325 (65 (325 mg total) FE) MG tablet by mouth 3 (three) times a day with meals for 30 days. omeprazole (PriLOSEC) Take 1 capsule 60 capsule 0 07/30/20 40 MG capsule (40 mg total) 019 by mouth 2 (two) times a day for 30 days. budesonide Take 2 mL (0.5 120 mL 0 07/30/20 Expi red (PULMICORT) 0.5 mg/2 mg total) by 019 mL nebulizer solution nebulization 2 (two) times a day for 30 days. flecainide (TAMBOCOR) Take 1 tablet 60 tablet 0 07/30/20 1202/23 50 MG tablet (50 mg total) 019 by mouth every 12 (twelve) hours for 30 days. furosemide (LASIX) 40 Take 1 tablet 30 tablet 0 07/31/20 7/2 mg tablet (40 mg total) 19 019 by mouth daily for 30 days. hydrALAZINE Take 1 tablet 90 tablet 0 07/30/202 Expi red (APRESOLINE) 50 MG (50 mg total) 19 019 tablet by mouth every 8 (eight) hours for 30 days. predniSONE Take 20 mg 30 tablet 0 07/30/20 (DELTASONE) 20 mg daily x 2 days 019 tablet then 10 mg daily x 2 days then 5 mg daily furosemide (LASIX) 40 Take 40 mg by 0 0 / Discontinued mg tablet mouth daily. 020 (Stop T aking at Discharge) spironolactone Take 50 mg by 0 10/26/ D iscontinued (ALDACTONE) 50 MG mouth daily. 020 (Stop Taking at tablet Discharge) flecainide (TAMBOCOR) Take 50 mg by 0 01/22 11/23 Discontinued 50 MG tablet mouth 2 (two) 020 (St op Taking at times a day. Dischar ge) potassium chloride Take 10 mEq by 0 Discontinued (K-DUR) 10 MEQ CR mouth 2 (two) 020 (Stop Taking at tablet times a day. Dischar ge) clonAZEPAM (KlonoPIN) Take 0.5 mg by 0 06/11 Discontinued 0.5 MG tablet mouth 2 (two) 020 (S top Taking at times a day as Disch arge) needed for anxiety. traMADol (ULTRAM) 50 Take 50 mg by 0 10/26 / Discontinued mg tabletIndications: mouth every 8 020 (Stop Taking at chronic pain (eight) hours Dis charge) as needed for moderate pain .chronic pain. acetaminophen Take 650 mg by 0 //2 D iscontinued (TYLENOL ARTHRITIS mouth every 8 020 (Stop Taking at PAIN) 650 MG 8 hr (eight) hours Discharge) tablet as needed for mild pain. omeprazole (PriLOSEC) Take 40 mg by 0 02/0 2/2 Discontinued 40 MG capsule mouth daily. 020 (St op Taking at Discharge) predniSONE Take 5 mg by 0 2 Discon tinued (DELTASONE) 5 mg mouth daily as 020 (Stop Taking at tablet needed. Discharge) cyanocobalamin 1,000 Inject 1,000 0 Discontinued mcg/mL injection mcg into the 020 (Stop Taking at shoulder, Discharge) thigh, or buttocks every 30 (thirty) days. of each month cefpodoxime (VANTIN) Take 1 tablet 10 tablet 0 10/26/1910/31 200 MG tablet (200 mg total) 20 020 by mouth 2 (two) times a day for 5 days. dicyclomine (BENTYL) Take 2 capsules 10 capsule 0 10/26/19 10 MG capsule (20 mg total) 20 020 by mouth 4 (four) times a day as needed (Abdominal pain) for up to 30 days. potassium citrate Take 1 mEq by 0 Discontinued (UROCIT-K) 15 mEq mouth 2 (two) 020 tablet extended times a day release with meals. traMADoL (ULTRAM) 50 Take 50 mg by 0 02/03 Discontinued mg tabletIndications: mouth every 6 020 (Stop Taking at acute pain (six) hours as Disc harge) needed for moderate pain .acute pain. clonAZEPAM (KlonoPIN) Take 1 mg by 0 02/03 Discontinued 1 MG tablet mouth 2 (two) 020 (Sto p Taking at times a day. Dischar ge) flecainide (TAMBOCOR) Take 1 tablet 60 tablet 0 02/03/2002/22 50 MG tablet (50 mg total) 20 020 by mouth 2 (two) times a day for 30 days. cefpodoxime (VANTIN) Take 1 tablet 10 tablet 0 02/03/2002/07 200 MG tablet (200 mg total) 20 020 by mouth 2 (two) times a day for 5 days. loperamide (IMODIUM) Take 1 capsule 20 capsule 0 02/03/2015/11 2 mg capsule (2 mg total) by 20 020 mouth 2 (two) times a day as needed for diarrhea for up to 10 days. lidocaine (LIDODERM) Place 1 patch 30 patch 0 02/05/2003/06 5 % on the skin 20 020 daily for 30 days. Remove & Discard patch within 12 hours or as directed by promethazine Take 25 mg by 0 Dis continued (PHENERGAN) 25 MG mouth every 6 020 (Therapy tablet (six) hours as compl eted) needed for nausea or vomiting. traMADoL (ULTRAM) 50 Take 50 mg by 0 03/24 Discontinued mg tabletIndications: mouth every 6 020 (Therapy acute pain (six) hours as comp leted) needed for moderate pain .acute pain. Active Problems Problem Noted Date Depression with suicidal ideation 01/30/2020 Salmonella gastroenteritis 10/23/2019 BIBI (acute kidney injury) 10/22/2019 CKD (chronic kidney disease) stage 3, GFR 30-59 ml/min 10/22/2019 COPD (chronic obstructive pulmonary disease) 0 Essential hypertension 10/22/2019 FERREIRA (nonalcoholic steatohepatitis) 10/22/2019 Physical deconditioning 10/22/2019 Osteoarthritis 10/22/2019 Squamous cell carcinoma of left lung 10/22/2019 Shortness of breath 10/22/2019 Gastroenteritis 10/22/2019 Anemia of chronic disease 10/22/2019 H/O: GI bleed 10/22/2019 Chronic respiratory failure with hypoxia 10/22/2019 Decompensated hepatic cirrhosis 10/22/2019 Severe sepsis 10/21/2019 Edema 07/21/2019 Iron deficiency anemia due to chronic blood loss 07/21 Overview: Added automatically from request for shawna rendon [id number] Chest pain 07/21/2019 Overview: Added automatically from request for shawna julieta [id number] COPD with acute exacerbation 03/10/2019 Gastrointestinal hemorrhage 03/10/2019 Overview: Added automatically from request for shawna rendon [id number] Vitamin D deficiency 05/29/2018 Secondary hyperparathyroidism 03/28/2018 Encounter for follow-up surveillance of lung cancer Renal stones 04/23/2017 Nausea 03/05/2017 Lung nodule 05/18/2016 Encounters Date Type Specialty Care Team Description External Home Quality Priyanka Knapp 020 Health Telephone Pain Medicine Pb [place] 020 MA Anesthesia Event Gastroenterology Dhother, 020 MD Ermias Shankar Teri, NP Surgery Gastroenterology Javier Webb EGD with A PC to GAVE Nishant Oakes MD Hospital Gastroenterology Javier Webb 020 Encounter MD Violette Travel 020 Lab Lab Odilia, Screening proce dure 020 MD Juan Jose Travel 020 Telemedicine Hepatology Odilia, Iron deficiency anemia due to chronic blood loss (Primary Dx); 020 MD Juan Jose GAVE (gastric a ntral vascular ectasia); NAFLD (nonalcoh olic fatty liver disease); Jim lesion, chronic; Gastroesophagea l reflux disease without esophagitis; Hepatic fibrosi s Telephone Hepatology Morris, 020 MAURILIO Whitehead Travel 020 Orders Only Hepatology Serban, NAFLD (nonalcoh olic fatty liver disease) (Primary Dx); 020 Nicki, CREDIT AUTHORIZER Iron deficienc y anemia due to chronic blood loss Telephone Hepatology [place], 020 MAURILIO [place] Telephone Hepatology [place], 020 MAURILIO [place] Surgery Gastroenterology Javier Webb EGD with A PC Nishant Oakes MD Anesthesia Event Gastroenterology Maykel Bowles, 020 Morena Willis, [employer] SUPERVISOR [facility] Gastroenterology Javier Webb 020 Chris Oakes MD Lab Lab Odilia, Pre-procedure l ab exam 020 MD Juan Jose [facility], 020 Ritu Dykes MD Travel 020 Telephone Hepatology Arturo, 020 MAURILIO [place] Telephone Hepatology Jaiden, 020 MAURILIO Izquierdo Telephone Hepatology Oral, Pre-procedure l ab exam 020 Janelle, CREDIT AUTHORIZER (Primary Dx) Orders Only Hepatology Mixon, 020 Janelle, CREDIT AUTHORIZER Orders Only Hepatology Serban, Screening proce dure (Primary 020 Nicki, CREDIT AUTHORIZER Dx) [facility] Radiology Odilia, Iron deficiency anemia due to chronic blood loss; 020 Encounter MD Juan Jose Abnormal liver enzymes; NAFLD (nonalcoh olic fatty liver disease); GAVE (gastric a ntral vascular ectasia); Jim lesion, chronic; Dysphagia, unsp ecified type Lab Lab Odilia, Canceled (Sched uling Error) 020 MD Juan Jose Telephone Access [place], 020 Ritu Dykes MD Travel 020 External Home Quality Priyanka Knapp 020 Health External Home Quality Priyanka Knapp 020 Health Travel 020 Telemedicine Hepatology Odilia, Iron deficiency anemia due to chronic blood loss (Primary Dx); 020 MD Juan Jose Abnormal liver enzymes; NAFLD (nonalcoh olic fatty liver disease); GAVE (gastric a ntral vascular ectasia); Jim lesion, chronic; Dysphagia, unsp ecified type; Screening proce dure Clinical Support [facility] 020 Services [facility], 020 Services Ruffin Patient Outreach Quality [place], 020 KIANNA Chiu [facility], 020 Services [place] Telephone Family Medicine Bryan, 020 Ritu Dykes MD [facility], 020 Services [place]uff[place] Travel 020 Hospital Nephrology Rehrer, Rotan Depression with suicidal ideation (Primary Dx); 020 - Encounter DO Sohail COPD with acute exacerbation (HCC); Tina Daly, Anemia, unspec ified type; 020 CKD (chronic kidney disease) stage 3, GF R 30-59 ml/min (HCC); Force, Chronic respira tory failure with hypoxia (HCC) Luis Felipe Castellanos MD Travel 020 Emergency [facility] ini tial [facility] 020 MD Mary (Primary Dx) Orders Only Pain Medicine Julien Workman Lumbar pain (Primary Dx) 020 MD Fredy Telephone Pain Medicine Pb [place] 020 MA Telephone Hepatology Oral, 020 GALLO Luis Telephone Hepatology Jordana 020 GALLO Caceres Refill Nephrology Nishant Marino MD Refill Nephrology Nishant Mraino MD Refill Nephrology Ned, 020 MD Karis Telephone Internal Medicine [place], 020 Ritu Dykes MD Telephone Hepatology Jordana, 020 GALLO Caceres [facility] Nephrology Oswald Marmolejo Sepsis with ac faye renal failure without septic shock, due to unspecified organism, unspecified acute renal failure type (HCC) (Primary Dx); 020 - Encounter MD Lucho BIBI (acute kidney injury) (HCC); Sarika Eli Colitis; 020 MD Barbi Shortness of breath; Matt, COPD with acute exacerbation (HCC) Jon Cosby III, MD Orders Only Pain Medicine Julien Workman Lumbar pain (Primary Dx) 020 MD Fredy Documentation Pain Medicine Julien Workman 020 MD Fredy Telephone Hepatology Arturo, 020 MAURILIO White[place] Telephone Neurosurgery Raquel Duarte 020 MD Estuardo Anesthesia Event Gastroenterology Maykel Bowles 020 MD Office Visit Pain Medicine Ji [place] Pain of righ t hip joint (Primary Dx); 020 MD Fredy Lumbar pain; History of rece nt fall Telephone Pain Medicine Pb [place] 020 MA Intake Access 019 Procedure visit Pain Medicine Ji [place] Lumbar ra diculopathy (Primary 019 MD Fredy Dx) Office Visit Pain Medicine Julien Workman Lumbar radic ulopathy (Primary Dx); Luis Daniel MD HNP (herniated nucleus pulposus), lumbar; Other chronic p ain Office Visit Hepatology Odilia, Abnormal liver enzymes (Primary Dx); Luis Ingram MD Iron deficiency anemia due to chronic blood loss; GAVE (gastric a ntral vascular ectasia); Jim lesion, chronic; NAFLD (nonalcoh olic fatty liver disease); Hepatic fibrosi s Office Visit Pain Medicine Ji Julien Lumbar radic ulopathy (Primary Dx); Luis Daniel MD HNP (herniated nucleus pulposus), lumbar; Other chronic p ain Orders Only Hepatology Sersammi, 019 Nicki, CREDIT AUTHORIZER Telephone Hepatology Jordana, 019 Nicki, CREDIT AUTHORIZER Refill Family Medicine [place], Luis Dykes MD Telephone Internal Medicine Luis Adams MD Patient Outreach Quality Di Haynes, Luis RPH Telephone Internal Medicine Luis Adams MD Patient Outreach Quality [place] 019 Surgery Procedural Javier Jama MD Selective cor onary 019 Cardiology angiography [93 454 (CPT)] Surgery Gastroenterology Odilia, ESOPHAGOGAS TRODUODENOSCOPY 019 MD Juan Jose (EGD)/biopsies/ APC Anesthesia Event Gastroenterology Kaleigh Delvalle 019 MD Sd Shields Genie Lazo [facility] Ritu Dykes MD [facility] General Internal [facility], Iron defici ency anemia due to chronic blood loss (Primary Dx); 019 - Encounter Medicine Ben Shell MD Chest pain, un specified type; Generalized tereso ma; 019 COPD with acute exacerbation (HCC) Office Visit Pain Medicine Julien Workman Lumbar radic ulopathy (Primary Dx); 019 MD Fredy HNP (herniated nucleus pulposus), lumbar; Musculoskeletal pain, chronic Procedure visit Pain Medicine Julien Workman Lumbar ra diculopathy (Primary 019 MD Fredy Dx) Office Visit Pain Medicine Lily Russell, Lumbar radicul opathy (Primary Dx); 019 [employer] SUPERVISOR-C HNP (herniated nucleus pulposus), lumbar ; Julien Workman Musculoskelet al pain, chronic; MD Fredy Other chronic p ain Refill Internal Medicine Bryan, Acute righ t lumbar 019 Ritu radiculopathy MD Jania Telephone Internal Medicine Luis Adams MD Orders Only Endocrinology Eric, Secondary hype rparathyroidism 019 MAURILIO Lozano ([facility]) (Primary Dx) Telephone Family Medicine [place], 019 Ritu Dykes MD Telephone Family Medicine [place], 019 Ritu Dykes MD Telephone Internal Medicine [place], Luis Dykes MD Orders Only Neurosurgery Lily Russell, Lumbar radiculo chema (Primary Dx); 019 [employer] SUPERVISOR-[employer] HNP (herniated nucleus pulposus), lumbar Telephone [facility] Medicine [place], 019 Ritu Dykes MD Telephone [facility] Medicine [place], 019 Ritu Dykes MD Refill [facility] Medicine [place], Acute right lumbar 019 Ritu radiculopathy MD Jania Refill [facility] Medicine [place], Acute right lumbar 019 Ritu radiculopathy MD Jania Telephone Internal Medicine [place], Lumbar deg enerative disc disease (Primary Dx); 019 Ritu Lumbar radiculo chema; MD Jania Acute right lum bar radiculopathy Office Visit Family Medicine Bryan, Acute right lumbar radiculopathy (Primary Dx); 019 Ritu Bilateral hip p bing Dykes MD after 05/10/2019 Family History Medical History Relation Name Comments COPD Father COPD Mother Stroke Mother Relation Name Status Comments Brother Father Mother Social History Tobacco Use Types Packs/Day Years Used Date Former Smoker Electronic Cigarettes 2 60 6 - 05/18/2016 Smokeless Tobacco: Never Used Tobacco Cessation: Counseling Given: No Alcohol Use Drinks/Week oz/Week Comments No Sex Assigned at Date Recorded Female 05/28/2019 6:36 PM CDT Job Start Date Occupation Industry Not on file Not on file Not on file Travel History Travel Start Travel End No recent travel history available. COVID-19 Exposure Response Date Recorded In the last month, have you been in contact with No / Unsure 04/28/2020 8:37 AM CDT someone who was confirmed or suspected to have Coronavirus / COVID-19? Last Filed Vital Signs Vital Sign Reading Time Taken Comments Blood Pressure 120/56 04/28/2020 12:05 PM CDT Pulse 83 04/28/2020 12:05 PM CDT Temperature 36.6 C (97.8 F) 04/28/2020 12:05 PM CDT Respiratory Rate 18 04/28/2020 12:05 PM CDT Oxygen Saturation 95% 04/28/2020 12:05 PM CDT Inhaled Oxygen Concentration - - Weight 71 kg (156 lb 9 oz) 04/28/2020 10:27 AM CDT Height 157.5 cm (5' 2") 04/28/2020 10:27 AM CDT Body Mass Index 28.64 04/28/2020 10:27 AM CDT Plan of Treatment Date Type Specialty Care Team Description 11/03/2020 Office Visit Hepatology Juan Jose Hartley MD [address] [facility] [address] [place], [place] [address] [phone] Health Maintenance Due Date Last Done Comments BREAST CANCER SCREENING 1995 SHINGLES VACCINES (#1) 1995 65+ PNEUMOCOCCAL VACCINE (2 of 2 - PPSV23) 11/04/201006/21 INFLUENZA VACCINE 05/25/2020 07/03/2017 COLONOSCOPY SCREENING 01/22/2021 01/22/2018 Implants Implanted Type Area Management Developer Device Shelf Model / Identifier Expiration Serial / Date Lot Stent Uretl S-Flx Kwart Retro-Inject 6fr 24cm - [id number] Periph eral or N/A: [employer] 12/19/2019 [id number] / Implanted: 03/06/2017 at [facility] (Quantity not on file) Biliary N/A / Stents [id number] Chelly Xi Endowrist Stapler Green Reload Stapling - N/A: INTU ITIVE 08/24/2017 [id number] / Implanted: Qty: 1 on 05/19/2016 by Lissa Diaz MD at [facility] Endo cutters, N/[employer]. [id number] / staplers, [id number] reloads Kit Selnt Plrl Air Leak 4ml Strl Progel - [id number] Surgical N/A: [employer] [id number] / Implanted: 05/18/2016 at [facility] (Quantity not on file) Implants; N/A / Expanders; Extenders; Surgical Wires Kit Selnt Plrl Air Leak 4ml Strl Progel - [id number] Surgical N/A: [employer] [id number] / Implanted: 05/18/2016 at [facility] (Quantity not on file) Implants; N/A / Expanders; Extenders; Surgical Wires Catheter Uretl 4.8fr 8fr 70cm Cn-Tp W/ Opn-End - [id number] Surgi dean N/A: [employer] [id number] / Implanted: 03/06/2017 at [facility] (Quantity not on file) Implants; N/A / Expanders; Extenders; Surgical Wires Prosthesis Osclr [place] Hagen Assure Prtl 2x2.5x2-5.60x1 .45mm - [id number] Surgical Right: [employer] 08/21/2021 [id number] / Implanted: Qty: 1 on 10/24/2017 by Darren Orr MD at [facility] Implants; Ear / Expanders; [id number] Extenders; Surgical Wires Stent [place] Nphrtstmy Ultthne Mac-Loc Lp-Lk 26cm - [id number] Surgical N/A: KENNY 02/08/2019 [id number] / Implanted: Qty: 1 on 04/23/2017 by Dina Lopez MD at [facility] Stents N/A INTERVENTIONAL / RADIOLOGY [id number] Lens Description:left eye lens Procedures Procedure Name Priority Date/Time Associated Comments Diagnosis ESOPHAGOGASTRODUODENOSCOPY 04/28/2020 Esophageal sanford ices (EGD) 11:09 AM CDT without bleeding (HCC) Diaphragmatic hernia without obstruction or gangrene Hemorrhage, not elsewhere classified Angiodysplasia of stomach and duodenum with bleeding COVID-19 QUALITATIVE PCR Routine 04/23/2020 Screening Res ults for 2:15 PM CDT procedure this procedure are in the results section. PROTHROMBIN TIME WITH INR Routine 04/05/2020 NAFLD Re sults for 12:42 PM CDT (nonalcoholic this fatty liver procedure are disease) in the Iron deficiency results anemia due to section. chronic blood loss COMPREHENSIVE METABOLIC PANEL Routine 04/05/2020 NAFLD Results for 12:42 PM CDT (nonalcoholic this fatty liver procedure are disease) in the Iron deficiency results anemia due to section. chronic blood loss CBC WITH PLATELET AND Routine 04/05/2020 NAFLD Result s for DIFFERENTIAL 12:42 PM CDT (nonalcoholic this fatty liver procedure are disease) in the Iron deficiency results anemia due to section. chronic blood loss ESOPHAGOGASTRODUODENOSCOPY 03/24/2020 Angiodysplasia of (EGD) 9:46 AM CDT stomach and duodenum without bleeding Dysphagia, unspecified Fatty (change of) liver, not elsewhere classified Abnormal results of liver function studies COVID-19 QUALITATIVE PCR Routine 03/22/2020 Pre-procedure la b Results for 2:59 PM CDT exam this procedure are in the results section. US ABDOMINAL WITH LIVER Routine 03/16/2020 Iron deficiency R esults for ELASTOGRAPHY 12:18 PM CDT anemia due to this chronic blood lo ss procedure are Abnormal liver in the enzymes results NAFLD section. (nonalcoholic fatty liver disease) GAVE (gastric antral vascular ectasia) Jim lesion, chronic Dysphagia, unspecified type COVID-19 QUALITATIVE PCR Routine 03/16/2020 Screening Res ults for 10:16 AM CDT procedure this procedure are in the results section. HC COMPLETE BLD COUNT W/AUTO Routine 02/03/2020 Results for DIFF 5:00 AM CDT this procedure are in the results section. ESTIMATED GFR Routine 02/03/2020 Results for 4:00 AM CDT this procedure are in the results section. MAGNESIUM LEVEL Routine 02/03/2020 Results for 4:00 AM CDT this procedure are in the results section. PHOSPHORUS LEVEL Routine 02/03/2020 Results for 4:00 AM CDT this procedure are in the results section. COMPREHENSIVE METABOLIC PANEL Routine 02/03/2020 Results for 4:00 AM CDT this procedure are in the results section. ECG 12-LEAD Routine 02/02/2020 Results for 9:08 PM CDT this procedure are in the results section. ESTIMATED GFR Routine 02/02/2020 Results for 5:00 AM CDT this procedure are in the results section. MAGNESIUM LEVEL Routine 02/02/2020 Results for 5:00 AM CDT this procedure are in the results section. PHOSPHORUS LEVEL Routine 02/02/2020 Results for 5:00 AM CDT this procedure are in the results section. COMPREHENSIVE METABOLIC PANEL Routine 02/02/2020 Results for 5:00 AM CDT this procedure are in the results section. HC COMPLETE BLD COUNT W/AUTO Routine 02/02/2020 Results for DIFF 5:00 AM CDT this procedure are in the results section. SALMONELLA/SHIGELLA CULTURE Routine 02/01/2020 Results for 10:06 AM CDT this procedure are in the results section. GASTROINTESTINAL PANEL Routine 02/01/2020 Resul ts for 10:06 AM CDT this procedure are in the results section. XR ABDOMEN 1 VW PORTABLE Routine 02/01/2020 Res ults for 9:05 AM CDT this procedure are in the results section. HC COMPLETE BLD COUNT W/AUTO Routine 02/01/2020 Results for DIFF 5:31 AM CDT this procedure are in the results section. HEPATIC FUNCTION PANEL Routine 02/01/2020 Resul ts for 4:00 AM CDT this procedure are in the results section. ESTIMATED GFR Routine 02/01/2020 Results for 4:00 AM CDT this procedure are in the results section. BASIC METABOLIC PANEL Routine 02/01/2020 Result s for 4:00 AM CDT this procedure are in the results section. URINE CULTURE STAT 01/31/2020 Results for 8:06 AM CDT this procedure are in the results section. XR CHEST 1 VW PORTABLE STAT 01/31/2020 Resul ts for 7:09 AM CDT this procedure are in the results section. URINALYSIS SCREEN AND STAT 01/31/2020 Result s for MICROSCOPY, WITH REFLEX TO 5:50 AM CDT t his CULTURE procedure are in the results section. URINE DRUGS OF ABUSE SCREEN STAT 01/31/2020 Results for 5:50 AM CDT this procedure are in the results section. MANUAL DIFFERENTIAL Routine 01/31/2020 Results for 5:10 AM CDT this procedure are in the results section. ESTIMATED GFR Routine 01/31/2020 Results for 5:10 AM CDT this procedure are in the results section. ALCOHOL LEVEL, BLOOD Routine 01/31/2020 Results for 5:10 AM CDT this procedure are in the results section. AMMONIA LEVEL Routine 01/31/2020 Results for 5:10 AM CDT this procedure are in the results section. PHOSPHORUS LEVEL Routine 01/31/2020 Results for 5:10 AM CDT this procedure are in the results section. MAGNESIUM LEVEL Routine 01/31/2020 Results for 5:10 AM CDT this procedure are in the results section. CBC WITH PLATELET AND Routine 01/31/2020 Result s for DIFFERENTIAL 5:10 AM CDT this procedure are in the results section. COMPREHENSIVE METABOLIC PANEL Routine 01/31/2020 Results for 5:10 AM CDT this procedure are in the results section. ESTIMATED GFR STAT 01/30/2020 Results for 10:20 PM CDT this procedure are in the results section. SALICYLATE LEVEL STAT 01/30/2020 Results for 10:20 PM CDT this procedure are in the results section. ACETAMINOPHEN LEVEL STAT 01/30/2020 Results for 10:20 PM CDT this procedure are in the results section. ALCOHOL LEVEL, BLOOD STAT 01/30/2020 Results for 10:20 PM CDT this procedure are in the results section. T4, FREE STAT 01/30/2020 Results for 10:20 PM CDT this procedure are in the results section. THYROID STIMULATING HORMONE STAT 01/30/2020 Results for 10:20 PM CDT this procedure are in the results section. CREATINE KINASE, TOTAL (CPK) STAT 01/30/2020 Results for 10:20 PM CDT this procedure are in the results section. COMPREHENSIVE METABOLIC PANEL STAT 01/30/2020 Results for 10:20 PM CDT this procedure are in the results section. HC COMPLETE BLD COUNT W/AUTO STAT 01/30/2020 Results for DIFF 10:20 PM CDT this procedure are in the results section. ECG ED PRELIMINARY Routine 01/30/2020 Results f or INTERPRETATION 9:57 PM CDT this procedure are in the results section. ECG 12-LEAD STAT 01/30/2020 Results for 9:13 PM CDT this procedure are in the results section. ESTIMATED GFR Routine 10/26/2019 Results for 4:07 AM SPUN PASTE MACHINE OPERATOR this procedure are in the results section. BASIC METABOLIC PANEL Routine 10/26/2019 Result s for 4:07 AM SPUN PASTE MACHINE OPERATOR this procedure are in the results section. HC COMPLETE BLD COUNT W/AUTO Routine 10/26/2019 Results for DIFF 4:07 AM SPUN PASTE MACHINE OPERATOR this procedure are in the results section. POC GLUCOSE Routine 10/25/2019 Results for 8:47 AM SPUN PASTE MACHINE OPERATOR this procedure are in the results section. ESTIMATED GFR Routine 10/25/2019 Results for 5:54 AM SPUN PASTE MACHINE OPERATOR this procedure are in the results section. PHOSPHORUS LEVEL Routine 10/25/2019 Results for 5:54 AM SPUN PASTE MACHINE OPERATOR this procedure are in the results section. MAGNESIUM LEVEL Routine 10/25/2019 Results for 5:54 AM SPUN PASTE MACHINE OPERATOR this procedure are in the results section. COMPREHENSIVE METABOLIC PANEL Routine 10/25/2019 Results for 5:54 AM SPUN PASTE MACHINE OPERATOR this procedure are in the results section. HC COMPLETE BLD COUNT W/AUTO Routine 10/25/2019 Results for DIFF 5:54 AM SPUN PASTE MACHINE OPERATOR this procedure are in the results section. POC GLUCOSE Routine 10/24/2019 Results for 9:10 PM SPUN PASTE MACHINE OPERATOR this procedure are in the results section. POC GLUCOSE Routine 10/24/2019 Results for 5:28 PM SPUN PASTE MACHINE OPERATOR this procedure are in the results section. POC GLUCOSE Routine 10/24/2019 Results for 8:18 AM SPUN PASTE MACHINE OPERATOR this procedure are in the results section. ESTIMATED GFR Routine 10/24/2019 Results for 5:13 AM SPUN PASTE MACHINE OPERATOR this procedure are in the results section. PHOSPHORUS LEVEL Routine 10/24/2019 Results for 5:13 AM SPUN PASTE MACHINE OPERATOR this procedure are in the results section. MAGNESIUM LEVEL Routine 10/24/2019 Results for 5:13 AM SPUN PASTE MACHINE OPERATOR this procedure are in the results section. COMPREHENSIVE METABOLIC PANEL Routine 10/24/2019 Results for 5:13 AM SPUN PASTE MACHINE OPERATOR this procedure are in the results section. HC COMPLETE BLD COUNT W/AUTO Routine 10/24/2019 Results for DIFF 5:13 AM SPUN PASTE MACHINE OPERATOR this procedure are in the results section. VANCOMYCIN LEVEL, RANDOM Routine 10/24/2019 Res ults for 5:13 AM SPUN PASTE MACHINE OPERATOR this procedure are in the results section. POC GLUCOSE Routine 10/23/2019 Results for 8:54 PM SPUN PASTE MACHINE OPERATOR this procedure are in the results section. POC GLUCOSE Routine 10/23/2019 Results for 5:56 PM SPUN PASTE MACHINE OPERATOR this procedure are in the results section. TROPONIN STAT 10/23/2019 Results for 12:59 PM SPUN PASTE MACHINE OPERATOR this procedure are in the results section. POC GLUCOSE Routine 10/23/2019 Results for 12:35 PM SPUN PASTE MACHINE OPERATOR this procedure are in the results section. POC GLUCOSE Routine 10/23/2019 Results for 8:14 AM SPUN PASTE MACHINE OPERATOR this procedure are in the results section. XR CHEST 1 VW PORTABLE STAT 10/23/2019 Resul ts for 8:01 AM SPUN PASTE MACHINE OPERATOR this procedure are in the results section. ECG 12-LEAD STAT 10/23/2019 Results for 6:25 AM SPUN PASTE MACHINE OPERATOR this procedure are in the results section. LIPASE LEVEL STAT 10/23/2019 Results for 6:07 AM SPUN PASTE MACHINE OPERATOR this procedure are in the results section. AMYLASE LEVEL STAT 10/23/2019 Results for 6:07 AM SPUN PASTE MACHINE OPERATOR this procedure are in the results section. B NATRIURETIC PEPTIDE STAT 10/23/2019 Result s for 6:07 AM SPUN PASTE MACHINE OPERATOR this procedure are in the results section. MAGNESIUM LEVEL STAT 10/23/2019 Results for 6:07 AM SPUN PASTE MACHINE OPERATOR this procedure are in the results section. TROPONIN STAT 10/23/2019 Results for 6:07 AM SPUN PASTE MACHINE OPERATOR this procedure are in the results section. ESTIMATED GFR Routine 10/23/2019 Results for 4:31 AM SPUN PASTE MACHINE OPERATOR this procedure are in the results section. PHOSPHORUS LEVEL Routine 10/23/2019 Results for 4:31 AM SPUN PASTE MACHINE OPERATOR this procedure are in the results section. MAGNESIUM LEVEL Routine 10/23/2019 Results for 4:31 AM SPUN PASTE MACHINE OPERATOR this procedure are in the results section. BASIC METABOLIC PANEL Routine 10/23/2019 Result s for 4:31 AM SPUN PASTE MACHINE OPERATOR this procedure are in the results section. HC COMPLETE BLD COUNT W/AUTO Routine 10/23/2019 Results for DIFF 4:31 AM SPUN PASTE MACHINE OPERATOR this procedure are in the results section. ALPHA FETOPROTEIN Routine 10/23/2019 Results fo r 4:31 AM SPUN PASTE MACHINE OPERATOR this procedure are in the results section. VANCOMYCIN LEVEL, RANDOM Routine 10/23/2019 Res ults for 4:31 AM SPUN PASTE MACHINE OPERATOR this procedure are in the results section. POC GLUCOSE Routine 10/22/2019 Results for 8:50 PM SPUN PASTE MACHINE OPERATOR this procedure are in the results section. US ABDOMINAL WITH LIVER Routine 10/22/2019 Resu lts for ELASTOGRAPHY 6:45 PM SPUN PASTE MACHINE OPERATOR this procedure are in the results section. NM LUNG VENTILATION PERFUSION Routine 10/22/2019 Results for 4:51 PM SPUN PASTE MACHINE OPERATOR this procedure are in the results section. ECG 12-LEAD STAT 10/22/2019 Results for 12:18 PM SPUN PASTE MACHINE OPERATOR this procedure are in the results section. D-DIMER Routine 10/22/2019 Results for 12:15 PM SPUN PASTE MACHINE OPERATOR this procedure are in the results section. SALMONELLA/SHIGELLA CULTURE Routine 10/22/2019 Results for 11:45 AM SPUN PASTE MACHINE OPERATOR this procedure are in the results section. GASTROINTESTINAL PANEL Routine 10/22/2019 Resul ts for 11:45 AM SPUN PASTE MACHINE OPERATOR this procedure are in the results section. UREA NITROGEN, URINE, RANDOM Routine 10/22/2019 Results for 11:40 AM SPUN PASTE MACHINE OPERATOR this procedure are in the results section. CREATININE LEVEL, URINE, RANDOM Routine 10/22/2019 Results for 11:40 AM SPUN PASTE MACHINE OPERATOR this procedure are in the results section. HC COMPLETE BLD COUNT W/AUTO Routine 10/22/2019 Results for DIFF 10:15 AM SPUN PASTE MACHINE OPERATOR this procedure are in the results section. VANCOMYCIN LEVEL, RANDOM STAT 10/22/2019 Res ults for 9:15 AM SPUN PASTE MACHINE OPERATOR this procedure are in the results section. ESTIMATED GFR Routine 10/22/2019 Results for 9:15 AM SPUN PASTE MACHINE OPERATOR this procedure are in the results section. COMPREHENSIVE METABOLIC PANEL Routine 10/22/2019 Results for 9:15 AM SPUN PASTE MACHINE OPERATOR this procedure are in the results section. CBC WITH PLATELET AND Routine 10/22/2019 Result s for DIFFERENTIAL 9:15 AM SPUN PASTE MACHINE OPERATOR this procedure are in the results section. ECG 12-LEAD STAT 10/22/2019 Results for 8:52 AM SPUN PASTE MACHINE OPERATOR this procedure are in the results section. POC GLUCOSE Routine 10/22/2019 Results for 3:56 AM SPUN PASTE MACHINE OPERATOR this procedure are in the results section. MAGNESIUM LEVEL Routine 10/22/2019 Results for 3:50 AM SPUN PASTE MACHINE OPERATOR this procedure are in the results section. LACTIC ACID LEVEL, SEPSIS - NOW Timed 10/22/2019 Results for AND REPEAT 2X EVERY 3 HOURS 3:50 AM SPUN PASTE MACHINE OPERATOR this procedure are in the results section. LACTIC ACID LEVEL, SEPSIS - NOW Timed 10/22/2019 Results for AND REPEAT 2X EVERY 3 HOURS 12:01 AM SPUN PASTE MACHINE OPERATOR this procedure are in the results section. CT ABDOMEN PELVIS WO CONTRAST STAT 10/21/2019 Results for 10:49 PM SPUN PASTE MACHINE OPERATOR this procedure are in the results section. VENOUS BLOOD GAS STAT 10/21/2019 Results for 10:15 PM SPUN PASTE MACHINE OPERATOR this procedure are in the results section. XR CHEST 1 VW PORTABLE STAT 10/21/2019 Resul ts for 9:54 PM SPUN PASTE MACHINE OPERATOR this procedure are in the results section. ECG 12-LEAD STAT 10/21/2019 Results for 9:51 PM SPUN PASTE MACHINE OPERATOR this procedure are in the results section. BLOOD CULTURE, AEROBIC & Routine 10/21/2019 Res ults for ANAEROBIC 9:42 PM SPUN PASTE MACHINE OPERATOR this procedure are in the results section. URINALYSIS SCREEN AND STAT 10/21/2019 Result s for MICROSCOPY, WITH REFLEX TO 9:21 PM SPUN PASTE MACHINE OPERATOR t his CULTURE procedure are in the results section. RESPIRATORY PATHOGEN PANEL Routine 10/21/2019 R esults for 9:20 PM SPUN PASTE MACHINE OPERATOR this procedure are in the results section. INFLUENZA ANTIGEN TEST, REFLEX Routine 10/21/2019 Results for NEGATIVE TO RPP 9:20 PM SPUN PASTE MACHINE OPERATOR this procedure are in the results section. URINE CULTURE STAT 10/21/2019 Results for 9:15 PM SPUN PASTE MACHINE OPERATOR this procedure are in the results section. BLOOD CULTURE, AEROBIC & Routine 10/21/2019 Res ults for ANAEROBIC 8:57 PM SPUN PASTE MACHINE OPERATOR this procedure are in the results section. PHOSPHORUS LEVEL STAT 10/21/2019 Results for 8:56 PM SPUN PASTE MACHINE OPERATOR this procedure are in the results section. MAGNESIUM LEVEL STAT 10/21/2019 Results for 8:56 PM SPUN PASTE MACHINE OPERATOR this procedure are in the results section. ESTIMATED GFR STAT 10/21/2019 Results for 8:56 PM SPUN PASTE MACHINE OPERATOR this procedure are in the results section. LIPASE LEVEL STAT 10/21/2019 Results for 8:56 PM SPUN PASTE MACHINE OPERATOR this procedure are in the results section. LACTIC ACID LEVEL, SEPSIS - NOW STAT 10/21/2019 Results for AND REPEAT 2X EVERY 3 HOURS 8:56 PM SPUN PASTE MACHINE OPERATOR this procedure are in the results section. COMPREHENSIVE METABOLIC PANEL STAT 10/21/2019 Results for 8:56 PM SPUN PASTE MACHINE OPERATOR this procedure are in the results section. PARTIAL THROMBOPLASTIN TIME STAT 10/21/2019 Results for (PTT) 8:56 PM SPUN PASTE MACHINE OPERATOR this procedure are in the results section. PROTHROMBIN TIME WITH INR STAT 10/21/2019 Re sults for 8:56 PM SPUN PASTE MACHINE OPERATOR this procedure are in the results section. HC COMPLETE BLD COUNT W/AUTO STAT 10/21/2019 Results for DIFF 8:56 PM SPUN PASTE MACHINE OPERATOR this procedure are in the results section. MI CRITICAL CARE, E/M 30-74 Routine 10/21/2019 Results for MINUTES 8:42 PM SPUN PASTE MACHINE OPERATOR this procedure are in the results section. TOTAL IRON BINDING CAPACITY Routine 08/29/2019 Abnormal live r Results for 11:35 AM SPUN PASTE MACHINE OPERATOR enzymes this Iron deficiency procedure ar e anemia due to in the chronic blood loss results section. FERRITIN LEVEL Routine 08/29/2019 Abnormal liver Results for 11:35 AM SPUN PASTE MACHINE OPERATOR enzymes this Iron deficiency procedure ar e anemia due to in the chronic blood loss results section. MANUAL DIFFERENTIAL Routine 07/29/2019 Results for 5:00 AM SPUN PASTE MACHINE OPERATOR this procedure are in the results section. CBC WITH PLATELET AND Routine 07/29/2019 Result s for DIFFERENTIAL 5:00 AM SPUN PASTE MACHINE OPERATOR this procedure are in the results section. ESTIMATED GFR Routine 07/29/2019 Results for 4:00 AM SPUN PASTE MACHINE OPERATOR this procedure are in the results section. BASIC METABOLIC PANEL Routine 07/29/2019 Result s for 4:00 AM SPUN PASTE MACHINE OPERATOR this procedure are in the results section. CV SELECTIVE CORONARY Routine 07/28/2019 Result s for ANGIOGRAPHY 3:20 PM SPUN PASTE MACHINE OPERATOR this procedure are in the results section. MANUAL DIFFERENTIAL Routine 07/28/2019 Results for 4:49 AM SPUN PASTE MACHINE OPERATOR this procedure are in the results section. ESTIMATED GFR Routine 07/28/2019 Results for 4:49 AM SPUN PASTE MACHINE OPERATOR this procedure are in the results section. BASIC METABOLIC PANEL Routine 07/28/2019 Result s for 4:49 AM SPUN PASTE MACHINE OPERATOR this procedure are in the results section. CBC WITH PLATELET AND Routine 07/28/2019 Result s for DIFFERENTIAL 4:49 AM SPUN PASTE MACHINE OPERATOR this procedure are in the results section. SMEAR REVIEW Routine 07/27/2019 Results for 4:45 AM SPUN PASTE MACHINE OPERATOR this procedure are in the results section. ESTIMATED GFR Routine 07/27/2019 Results for 4:45 AM SPUN PASTE MACHINE OPERATOR this procedure are in the results section. CBC WITH PLATELET AND Routine 07/27/2019 Result s for DIFFERENTIAL 4:45 AM SPUN PASTE MACHINE OPERATOR this procedure are in the results section. BASIC METABOLIC PANEL Routine 07/27/2019 Result s for 4:45 AM SPUN PASTE MACHINE OPERATOR this procedure are in the results section. TISSUE TRANSGLUTAMINASE AB, IGA Routine 07/26/2019 Results for 7:00 AM CDT this procedure are in the results section. CELIAC DISEASE REFLEXIVE Routine 07/26/2019 Res ults for CASCADE 7:00 AM CDT this procedure are in the results section. SMEAR REVIEW Routine 07/26/2019 Results for 6:00 AM CDT this procedure are in the results section. CBC WITH PLATELET AND Routine 07/26/2019 Result s for DIFFERENTIAL 6:00 AM CDT this procedure are in the results section. ESTIMATED GFR Routine 07/26/2019 Results for 4:00 AM CDT this procedure are in the results section. BASIC METABOLIC PANEL Routine 07/26/2019 Result s for 4:00 AM CDT this procedure are in the results section. CBC WITH PLATELET AND Routine 07/25/2019 Result s for DIFFERENTIAL 5:20 AM CDT this procedure are in the results section. ESTIMATED GFR Routine 07/25/2019 Results for 4:00 AM CDT this procedure are in the results section. BASIC METABOLIC PANEL Routine 07/25/2019 Result s for 4:00 AM CDT this procedure are in the results section. ECG 12-LEAD STAT 07/24/2019 Results for 1:47 PM CDT this procedure are in the results section. TROPONIN STAT 07/24/2019 Results for 12:10 PM CDT this procedure are in the results section. SURGICAL PATHOLOGY REQUEST Routine 07/24/2019 R esults for 11:34 AM CDT this procedure are in the results section. ESOPHAGOGASTRODUODENOSCOPY 07/24/2019 Iron deficienc y (EGD) 8:52 AM CDT anemia due to chronic blood loss TROPONIN STAT 07/24/2019 Results for 5:35 AM CDT this procedure are in the results section. CBC WITH PLATELET AND Routine 07/24/2019 Result s for DIFFERENTIAL 5:35 AM CDT this procedure are in the results section. MAGNESIUM LEVEL STAT 07/24/2019 Results for 5:26 AM CDT this procedure are in the results section. ECG 12-LEAD STAT 07/24/2019 Results for 5:18 AM CDT this procedure are in the results section. ESTIMATED GFR Routine 07/24/2019 Results for 4:00 AM CDT this procedure are in the results section. BASIC METABOLIC PANEL Routine 07/24/2019 Result s for 4:00 AM CDT this procedure are in the results section. PREPARE RBC Routine 07/23/2019 Results for 6:00 AM CDT this procedure are in the results section. TYPE AND SCREEN Routine 07/23/2019 Results for 6:00 AM CDT this procedure are in the results section. SMEAR REVIEW Routine 07/23/2019 Results for 4:32 AM CDT this procedure are in the results section. CBC WITH PLATELET AND Routine 07/23/2019 Result s for DIFFERENTIAL 4:32 AM CDT this procedure are in the results section. ESTIMATED GFR Routine 07/23/2019 Results for 4:00 AM CDT this procedure are in the results section. BASIC METABOLIC PANEL Routine 07/23/2019 Result s for 4:00 AM CDT this procedure are in the results section. HEPATIC FUNCTION PANEL Routine 07/22/2019 Resul ts for 3:30 PM CDT this procedure are in the results section. PROTHROMBIN TIME WITH INR Routine 07/22/2019 Re sults for 3:30 PM CDT this procedure are in the results section. FOLATE LEVEL Routine 07/22/2019 Results for 3:30 PM CDT this procedure are in the results section. VITAMIN B12 LEVEL Routine 07/22/2019 Results fo r 3:30 PM CDT this procedure are in the results section. TOTAL IRON BINDING CAPACITY Routine 07/22/2019 Results for 3:30 PM CDT this procedure are in the results section. FERRITIN LEVEL Routine 07/22/2019 Results for 3:30 PM CDT this procedure are in the results section. SMEAR REVIEW Routine 07/22/2019 Results for 7:35 AM CDT this procedure are in the results section. HC COMPLETE BLD COUNT W/AUTO Routine 07/22/2019 Results for DIFF 7:35 AM CDT this procedure are in the results section. ESTIMATED GFR Routine 07/22/2019 Results for 4:00 AM CDT this procedure are in the results section. CBC WITH PLATELET AND Routine 07/22/2019 Result s for DIFFERENTIAL 4:00 AM CDT this procedure are in the results section. BASIC METABOLIC PANEL Routine 07/22/2019 Result s for 4:00 AM CDT this procedure are in the results section. XR CHEST 1 VW PORTABLE Routine 07/21/2019 Resul ts for 7:38 PM CDT this procedure are in the results section. MRI LUMBAR SPINE WO CONTRAST Routine 05/19/2019 Acute right lumbar Results for 11:31 AM CDT radiculopathy this procedure are in the results section. XR HIPS BILATERAL AP LATERAL W Routine 05/19/2019 Bilateral hip pain Results for AP PELVIS 10:10 AM CDT this procedure are in the results section. after 05/10/2019 Results COVID-19 qualitative PCR (04/23/2020 2:15 PM CDT)Only the most recent of3 resultswithin the time period is included. Interpretation Negative results do not prec lude 2019-nCoV infection and should not be used as the sole basis for treatment or other patient management decisions. Negative results must be combined with clinical observations, patient history, and epidemiological [facility] information. [facility] COVID-19 qualitative Not-Detected Not-Detecte [facility] PCR result d [facility] COVID-19 qualitative See link below for [facility] PCR PDF Lab [facility] ReportComment: Case HOSPITAL Number: [id number] Specimen Nasopharyngeal swab Performing Organization Address City/State/Zipcode Phone Number [facility] DEPARTMENT OF PATHOLOGY AND [address] [place], [place] [address] GENOMIC MEDICINE [address] [facility] Prothrombin time with INR (04/05/2020 12:42 PM CDT)Only the most recent of3 resultswithin the time period is included. INR 1.0 [facility] Comment: [facility] Reference Range 0.9-1.1 Moderate-intensity Warfarin Therapy 2.0-3.0 Higher-intensity Warfarin Therapy 3.0-4.0 Prothrombin time 10.0 9.0 - 11.5 [facility] Comment: da NDIAYE For more information on this test, go to: http://[email or web address].Jijindou.com/faq/[email or web address] Specimen Blood Narrative Performed At FASTING:NO [facility] FASTING: NO Resulting Agency Comment Performing Organization Information: Site ID: [id number] Name: [facility] Address: [address] [place] [id number] Director: Maik Nelson Performing Organization Address City/[facility] Phone Number [facility] [email or web address] [facility] [address] [place] [phone] CBC with platelet and differential (04/05/2020 12:42 PM CDT)Only the most recent of22 resultswithin the time period is included. WBC 13.0 (H) 3.8 - 10.8 [facility] Thousand/uL [facility] RBC 4.03 3.80 - 5.10 [facility] Million/uL [facility] HGB 10.8 (L) 11.7 - 15.5 [facility] g/dL [facility] HCT 34.4 (L) 35.0 - 45.0 [facility] % [facility] MCV 85.4 80.0 - 100.0 [facility] MCH 26.8 (L) 27.0 - 33.0 [facility] pg [facility] MCHC 31.4 (L) 32.0 - 36.0 [facility] g/dL [facility] RDW 14.7 11.0 - 15.0 [facility] % [facility] Platelet count 283 140 - 400 [facility] Thousand/uL [facility] MPV 10.7 7.5 - 12.5 [facility] Neutrophils, 10,764 (H) 1,500 - [facility] absolute 7,800 [facility] cells/uL Lymphocytes, 1,183 850 - 3,900 [facility] absolute cells/uL [facility] Monocytes, absolute 702 200 - 950 [facility] cells/uL [facility] Eosinophils, 234 15 - 500 [facility] absolute cells/uL [facility] Basophils, absolute 117 0 - 200 [facility] cells/uL [facility] Neutrophils 82.8 % [facility] [place] Lymphocytes 9.1 % [facility] [place] Monocytes 5.4 % [facility] [place] Eosinophils 1.8 % [facility] [place] Basophils + RC 0.9 % [facility] [place] Nucleated RBC [facility] Comment: [facility] Review of peripheral smear confirms automated results. Specimen Blood Narrative Performed At FASTING:NO [facility] FASTING: NO Resulting Agency Comment Performing Organization Information: Site ID: [id number] Name: [facility] Address: [address] [place] [id number] Director: Maik Nelson Performing Organization Address City/State/Zipcode Phone Number [email or web address] [facility] [address] [place] [address] Comprehensive metabolic panel (04/05/2020 12:42 PM CDT)Only the most recent of9 resultswithin the time period is included. Glucose 101 65 - 139 [facility] Comment: mg/dL [facility] Non-fasting reference interval BUN 24 7 - 25 mg/dL [facility] Creatinine 1.41 (H) 0.60 - 0.93 [facility] Comment: mg/dL [facility] For patients >49 years of age, the reference limit for Creatinine is approximately 13% higher for people identified as -[place]. EGFR Non-Afr. 37 (L) > OR = 60 [facility] [place] mL/min/1.73m [facility] 2 EGFR 42 (L) > OR = 60 [facility] [place] mL/min/1.73m [facility] 2 BUN/creatinine 17 6 - 22 [facility] ratio (calc) [facility] Sodium 144 135 - 146 [facility] mmol/L [facility] Potassium 4.0 3.5 - 5.3 [facility] mmol/L [facility] Chloride 105 98 - 110 [facility] mmol/L [facility] CO2 31 20 - 32 [facility] mmol/L [facility] Calcium 8.8 8.6 - 10.4 [facility] mg/dL [facility] Protein 6.1 6.1 - 8.1 [facility] g/dL [facility] Albumin, S 3.6 3.6 - 5.1 [facility] g/dL [facility] Globulin, total 2.5 1.9 - 3.7 [facility] g/dL (calc) [facility] Albumin/globulin 1.4 1.0 - 2.5 [facility] ratio (calc) [facility] Total bilirubin 0.3 0.2 - 1.2 [facility] mg/dL [facility] Alkaline 51 37 - 153 U/L [facility] phosphatase [facility] AST 26 10 - 35 U/L [facility] ALT 35 (H) 6 - 29 U/L [facility] Specimen Blood Narrative Performed At FASTING:NO [facility] FASTING: NO Resulting Agency Comment Performing Organization Information: Site ID: [id number] Name: [email or web address] Address: [address] [place] [address] Director: Maik Nelson Performing Organization Address City/State/Zipcode Phone Number [email or web address] [facility] [address] [place] [address] US Abdominal with Liver Elastograpy (03/16/2020 12:18 PM CDT)Only the most recent of2 resultswithin the time period is included. 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 FINDINGS: LIVER: The liver demonstrates normal echogenicity wi thout focal mass or intrahepatic biliary ductal dilatatio n. 2D-Shear wave elastography was performed; 10 measureme nts were obtained from the right hepatic lobe per protocol. The median s hear wave velocity was 1.59 m/s, most compatible with F0 fibrosis (see re ference ranges for EasyLink Logiq E9 with C1-6 Mhz probe below). Please note that velocities/stiffness may ALSO be e levated due to passive hepatic congestion, biliary obstruction/choles tasis, and inflammation (such as acute viral hepatitis flare). Results should be interpreted with caution in these settin gs. GE Logiq E9 reference ranges: METAVIRSW velocity Stiffness Normal F>0<1.35 m/s 1.35 m/s<5.48 kPa 5.48 kPa F>11.66 m/s8.29 kPa F>21.77 m/s9.40 kPa F>31.99 m/s11.9 kPa Reliability: The IQR was 0.28, resulting in an IQR/median ratio of 0.18. (A value of < 0.3 indicates a reliable dataset). MPV: DDoppler evaluation of the portal vein demonstr ates normal hepatopedal flow. 9 mm in diameter GALLBLADDER: Patient status post cholecystectomy, wi thout evidence of biliary ductal dilatation. PANCREAS: VVisualized portions of the pa ncreatic body are unremarkable. CBD: The common bile duct measures 6 mm , wwithin normal limits ASCITES: NNo abnormal abdominal fluid collections are visualized. There is no evidence of ascites. KIDNEYS: TThe kidneys are normal in echogenicity witho ut renal mass or hydronephrosis identified sonographicall y. SPLEEN: TThe spleen is homogeneous and not enlarged [id number] x 4 x 4 cm. AORTA: TThe abdominal aorta is normal in caliber where visualized. IVC: VVisualized portions of the IVC are patent. IMPRESSION: Mild hepatic fibrosis Procedure Note Hm Interface, Radiology Results Incoming - 03/16/2020 12:48 PM CDT EXAM: US ABDOMINAL WITH LIVER ELASTOGRAPHY CLINICAL DATA: D50.0 Iron deficiency an emia secondary to blood loss (chronic), R74.8 Abnormal levels of other serum enzymes, fatty liver COMPARISON: To previous study from 2019 TECHNIQUE: Sonographic evaluation of the abdomen, including grayscale/B mode, color and spectral Doppler as well as 2-D Shear wave elastography. FINDINGS: LIVER: The liver demonstrates normal ec hogenicity without focal mass or intrahepatic biliary ductal dilatation. 2D-Shear wave elastography was performed ; 10 measurements were obtained from the right hepatic lobe per protocol. The median shear wave velocity was 1.59 m/s, most compatible with F0 fibrosis (see reference ranges for GE Logiq E9 with C1-6 Mhz probe below). Please note that velocities/stiffness may ALSO be elevated due to passive hepatic congestion, biliary obstruction/cholestasis, and inflammation (such as acute viral hepatitis flare). Results should be interpreted with caution in these settings. GE Logiq E9 reference ranges: METAVIRSW velocity Stiffness Normal F>0<1.35 m/s 1.35 m/s<5.48 kPa 5.48 kPa F>11.66 m/s8.29 kPa F>21.77 m/s9.40 kPa F>31.99 m/s11.9 kPa Reliability: The IQR was 0.28, resulting in an IQR/me michelle ratio of 0.18. (A value of < 0.3 indicates a reliable dataset). MPV: DDoppler evaluation of the portal vein demonstrates normal hepatopedal flow. 9 mm in diameter GALLBLADDER: Patient status post cholec ystectomy, without evidence of biliary ductal dilatation. PANCREAS: VVisualized portions of the pa ncreatic body are unremarkable. CBD: The common bile duct measures 6 mm , wwithin normal limits ASCITES: NNo abnormal abdominal fluid co llections are visualized. There is no evidence of ascites. KIDNEYS: TThe kidneys are normal in echo genicity without renal mass or hydronephrosis identified sonographically. SPLEEN: TThe spleen is homogeneous and not enlarged [id number] x 4 x 4 cm. AORTA: TThe abdominal aorta is normal in caliber where visualized. IVC: VVisualized portions of the IVC are patent. IMPRESSION: Mild hepatic fibrosis Performing Organization Address City/[facility]/Zipcode Phone Number [address] [address] Estimated GFR (02/03/2020 4:00 AM CDT)Only the most recent of19 resultswithin the time period is included. Estimated GFR 46 (A) mL/min/1.73 [facility] Comment: m2 HOSPITAL Catergory Units Interpretation G1 >=90 Normal or high G2 60-89 Mildly decreased G3a 45-59 Mildly to moderately decreas ed G3b 30-44 Moderately to severely decre ased G4 15-29 Severely decreased G5 <15 Kidney failure The eGFR was calculated using the Chronic Kidney Disea se Epidemiology Collaboration (CKD-EPI) equation. Interpretation is based on recommendations of the National Kidney Foundation-Kidney Disease Outcomes Ash lity Initiative (NKF-KDOQI) published in 2014. Specimen Performing Organization Address [facility] Phone Number [facility] DEPARTMENT OF PATHOLOGY AND [address] [place] [address] [phone] [address] Phosphorus level (02/03/2020 4:00 AM CDT)Only the most recent of7 resultswithin the time period is included. Pathologist Sig nature Phosphorus 4.1 2.4 - 4.5 mg/dL [facility] Specimen Blood Performing Organization Address [facility] Phone Number [facility] DEPARTMENT OF PATHOLOGY AND [address] [place] [address] [phone] [address] Magnesium level (02/03/2020 4:00 AM CDT)Only the most recent of10 resultswithin the time period is included. Pathologist Sig nature Magnesium 1.9 1.6 - 2.4 mg/dL [facility] Specimen Blood Performing Organization Address [facility] Phone Number [facility] DEPARTMENT OF PATHOLOGY AND [address] [place] [address] [phone] [address] ECG 12 lead (02/02/2020 9:08 PM CDT)Only the most recent of8 resultswithin the time period is included. Ventricular rate 88 [facility] Atrial rate 88 [facility] MI interval 122 [facility] QRSD interval 134 [facility] QT interval 404 [facility] QTC interval 488 [facility] P axis 1 65 [facility] QRS axis 1 -4 [facility] T wave axis 34 [facility] EKG impression Normal sinus [facility] MUSE rhythm-Nonspecific intraventricular block- Specimen Narrative Performed At This result has an attachment that is no t available. Performing Organization Address City/State/Zipcode Phone Number [address] [address] Salmonella/shigella culture (02/01/2020 10:06 AM CDT)Only the most recent of2 resultswithin the time period is included. Pathologist [facility] Salmonella/shigell No Salmonella or Shigella isolated. [facility] a culture isolate No Salmonella or Shigella isolated. HOSPITAL Comment: Specimen Information Specimen Source: Stool Specimen Site: Nonpreserved Specimen Stool - Nonpreserved Performing Organization Address City/State/Zipcode Phone Number [facility] DEPARTMENT OF PATHOLOGY AND [address] [place] [phone] [facility]OM[facility] MEDIC[facility] [address] [address] Gastrointestinal panel (02/01/2020 10:06 AM CDT)Only the most recent of2 results within the time period is included. Pathologist [facility] Adenovirus 40/41 PCR Not Detected [facility] Comment: [facility] Specimen Information HOSPITAL Specimen Source: Stool Specimen Site: Nonpreserved Astrovirus PCR Not Detected [facility] Campylobacter PCR Not Detected [facility] Clostridioides difficile Not Detected [facility] Cryptosporidium PCR Not Detected [facility] Cyclospora cayetanensis Not Detected [facility] Enteroaggregative E coli Not Detected [facility] Entamoeba histolytica Not Detected [facility] Enteroinvasive E coli Not Detected [facility] Enteropathogenic E coli Detected (A) [facility] Norovirus PCR Not Detected [facility] Plesiomonas shigelloides Not Detected [facility] Rotavirus PCR Not Detected [facility] Salmonella PCR Detected (A) [facility] Sapovirus PCR Not Detected [facility] Enterotoxigenic E coli Not Detected [facility] Shigatoxin producing E Not Detected [facility] coli PCR [facility] E coli O157 PCR Not Reported [facility] Vibrio PCR Not Detected [facility] Vibrio cholerae PCR Not Detected [facility] Yersinia enterocolitica Not Detected [facility] Giardia lamblia PCR Not Detected [facility] Specimen Stool - Nonpreserved Performing Organization Address City/[facility]/Zipcode Phone Number [facility] DEPARTMENT OF PATHOLOGY AND [address] [place] [phone] GENOM[facility] MEDICINE [address] [address] XR Abdomen 1 Vw Portable (02/01/2020 9:05 AM CDT) Specimen Narrative Performed At EXAMINATION: XR ABDOMEN 1 VW PORTABLE [facility] CLINICAL HISTORY: 74 years Female A bd pain unspecified COMPARISON: March 18, 2019 IMPRESSION: There is a nonspecific bowel gas pattern. Mild retai ross stool throughout the colon, constipation canno t be excluded. There are no suspicious calcifications overlying the kidneys or expected course of the ureters Age-related changes throughout the bony structures, ex tensive degenerative changes in the hips The lung bases are clear . Procedure Note Interface, Radiology Results Incoming - 02/01/2020 10:17 AM CDT EXAMINATION: XR ABDOMEN 1 VW PORTABLE CLINICAL HISTORY: 74 years Female Abd pain unspecified COMPARISON: March 18, 2019 IMPRESSION: There is a nonspecific bowel gas pattern . Mild retained stool throughout the colon, constipation cannot be excluded. There are no suspicious calcifications overlying the kidneys or expected course of the ureters Age-related changes throughout the bony structures, extensive degenerative changes in the hips The lung bases are clear . Performing Organization Address City/[facility] Cent[facility] Phone Number [facility] [address] [place] [address] Hepatic function panel (02/01/2020 4:00 AM CDT)Only the most recent of2 results within the time period is included. Albumin 2.6 (L) 3.5 - 5.0 [facility] g/dL [facility] Total bilirubin <0.2 0.0 - 1.2 [facility] mg/dL HOSPITAL Bilirubin direct <0.2 0.0 - 0.3 [facility] mg/dL [facility]OSPITAL Alkaline phosphatase 54 35 - 104 U/L [facility] Protein 6.2 (L) 6.3 - 8.3 [facility] Comment: g/dL HOSPITAL - 4.6-7.0 g/dL 1 week 4.4-7.6 g/dL 7 months-1year 5.1-7.3 g/dL 1-2 years 5.6-7.5 g/dL >3 years 6.0-8.0 g/dL 18-150 6.3-8.3 g/dL ALT 18 5 - 50 U/L [facility] AST 30 10 - 35 U/L [facility] Specimen Performing Organization Address City/[facility] Cent[facility] Phone Number [facility] DEPARTMENT OF PATHOLOGY AND [address] [place] [phone] Basic metabolic panel (02/01/2020 4:00 AM CDT)Only the most recent of11 results within the time period is included. Pathologist Sig nature Sodium 144 135 - 148 mEq/L [facility] Potassium 3.6 3.5 - 5.0 mEq/L [facility] Chloride 105 98 - 112 mEq/L [facility] CO2 26 24 - 31 mEq/L [facility] Anion gap 13@ANIO 7 - 15 mEq/L [facility] BUN 14 8 - 23 mg/dL [facility] Creatinine 1.27 (H) 0.50 - 0.90 mg/dL [facility] Glucose 77 65 - 99 mg/dL [facility] Calcium 9.3 8.8 - 10.2 mg/dL [facility] Specimen Blood Performing Organization Address [facility] Phone Number [facility] DEPARTMENT OF PATHOLOGY AND [address] [place] [address] [phone] [address] Urine culture (01/31/2020 8:06 AM CDT)Only the most recent of2 resultswithin the time period is included. Urine culture Klebsiella pneumoniae [facility] isolate 10-4 cfu/ml [facility] The performance characteristics of this assay on this isolate were validated by the Microbiology Laboratory at [facility]. This source has not been approve d by the U.S. Food and Drug Administration. The results are n ot intended to be used as the sole means for clinical semaj gnosis or patient management. The Microbiology Laboratory i s authorized under the clinical Laboratory Improvement Amendments of 1988 (CLIA-88) to perform high complexit y testing. (A) Comment: Specimen Information Specimen Source: Urine Specimen Site: Clean catch Specimen Urine Organism Antibiotic Method Susceptibility Klebsiella pneumoniae Ampicillin JAJA >16 mcg/mL : Resistant Klebsiella pneumoniae Amoxicillin/Clavulanate JAJA 4/ 2 mcg/mL: Susceptible Klebsiella pneumoniae Amikacin JAJA <=4 mcg/mL : Susceptible Klebsiella pneumoniae Aztreonam JAJA <=1 mcg/mL : Susceptible Klebsiella pneumoniae Ceftazidime JAJA <=0.5 mcg/ mL: Susceptible Klebsiella pneumoniae Ciprofloxacin JAJA <=0.5 mcg/ mL: Susceptible Klebsiella pneumoniae Ceftriaxone JAJA <=0.5 mcg/ mL: Susceptible Klebsiella pneumoniae Cefuroxime Sodium JAJA 16 mcg/m L: Resistant Klebsiella pneumoniae Cefazolin JAJA 2 mcg/mL: Susceptible Klebsiella pneumoniae Cefepime JAJA <=0.5 mcg/ mL: Susceptible Klebsiella pneumoniae Nitrofurantoin JAJA 32 mcg/mL: Susceptible Klebsiella pneumoniae Cefoxitin JAJA 16 mcg/mL: Resistant Klebsiella pneumoniae Gentamicin JAJA 1 mcg/mL: Susceptible Klebsiella pneumoniae Imipenem JAJA 0.5 mcg/mL : Susceptible Klebsiella pneumoniae Levofloxacin JAJA <=1 mcg/mL : Susceptible Klebsiella pneumoniae Meropenem JAJA <=0.125 mc g/mL: Susceptible Klebsiella pneumoniae Tobramycin JAJA 1 mcg/mL: Susceptible Klebsiella pneumoniae Ampicillin/Sulbactam JAJA 8/4 m cg/mL: Susceptible Klebsiella pneumoniae Trimethoprim/Sulfamethoxazol JAJA <=0.5/9.5 mcg/mL: e Susceptible Klebsiella pneumoniae Tetracycline JAJA 2 mcg/mL: Susceptible Klebsiella pneumoniae Piperacillin/Tazobactam JAJA 4/ 4 mcg/mL: Susceptible Klebsiella pneumoniae Ertapenem JAJA <=0.125 mc g/mL: Susceptible Klebsiella pneumoniae Tigecycline JAJA 2 mcg/mL: Susceptible Performing Organization Address City/State/Zipcode Phone Number [facility] DEPARTMENT OF PATHOLOGY AND [address] [place] [address] [address] [facility] [address] [address] XR Chest 1 Vw Portable (01/31/2020 7:09 AM CDT)Only the most recent of4 results within the time period is included. Specimen Narrative Performed At EXAMINATION: XR CHEST 1 VW PORTABLE [facility] CLINICAL HISTORY: SOB COMPARISON: 10/23/2019 IMPRESSION: 1. The lungs are clear of acute infiltrate, consolidat ion, or pleural effusion. 2. The cardiac silhouette is the upper limit of normal in size. There is mild central pulmonary vascular congesti on. 3. The visualized osseous structures are intact. [id number] Procedure Note Hm Interface, Radiology Results Incoming - 01/31/2020 7:53 AM CDT EXAMINATION: XR CHEST 1 VW PORTABLE CLINICAL HISTORY: SOB COMPARISON: 10/23/2019 IMPRESSION: 1. The lungs are clear of acute infiltra te, consolidation, or pleural effusion. 2. The cardiac silhouette is the upper l imit of normal in size. There is mild central pulmonary vascular congestion. 3. The visualized osseous structures are intact. [id number] Performing Organization Address City/[facility] Cent[facility] Phone Number [facility] [address] [place] [address] Urinalysis screen and microscopy, with reflex to culture (01/31/2020 5:50 AM CDT)Only the most recent of2 resultswithin the time period is included. Specimen site Clean catch [facility] Color, UA Straw [facility] Appearance, UA Clear [facility] Specific gravity, UA 1.009 1.001 - 1.[address] [facility] pH, UA 6.0 5.0 - 8.[address] [facility] Protein, UA Negative Negative [facility] Glucose, UA Negative Negative [facility] Ketones, UA Negative Negative [facility] Bilirubin, UA Negative Negative [facility] Blood, UA Negative Negative [facility] Nitrite, UA Negative Negative [facility] Urobilinogen, UA <2.0 <2.[address] [facility] Leukocyte esterase, Negative Negative [facility] Epithelial cells, UA <1 /HPF [facility] WBC, UA 5 (H) 0 - 4 /HPF [facility] RBC, UA 1 0 - 5 /HPF [facility] Bacteria, UA None seen None seen [facility] Yeast, UA None seen [facility] Yeast with None seen [facility] pseudohyphae, HOSPITAL Hyaline casts, UA 1 /LPF [facility] Specimen Urine Performing Organization Address City/State/Zipcode Phone Number [facility] DEPARTMENT OF PATHOLOGY AND [address] [place] [address] [phone] [address] Urine drugs of abuse screen (01/31/2020 5:50 AM CDT) Amphetamine screen, Negative [facility] urine [facility] Barbiturate screen, Negative [facility] urine [facility] Benzodiazepine Negative [facility] screen, urine [facility] Cocaine screen, urine Negative [facility] Methadone metabolite Negative [facility] (EDDP), urine [facility] Opiates screen, urine Negative [facility] Oxycodone screen, Negative [facility] urine [facility] Phencyclidine screen, Negative [facility] urine [facility] Tricyclic screen, Negative [facility] urine [facility] Cannabinoid screen, Negative [facility] urine Comment: [facility] Drug screen minimum concentration of detectability HOSPITAL Amphetamines 1000 ng/mL Barbiturates 200 ng/mL Benzodiazepines 300 ng/mL Cocaine 300 ng/mL Methadone 300 ng/mL Opiates 300 ng/mL Oxycodone 300 ng/mL Phencyclidine 25 ng/mL Cannabinoids 50 ng/mL Tricyclics 1000 ng/mL Results are from screening tests and should only be used for medical evaluation. Drug testing for legal purposes requires definitive (or confirmatory) testing methods, which are available upon request. Contact the laboratory if definitive testing is requir ed. Specimen Urine Performing Organization Address City/State/Zipcode Phone Number [facility] DEPARTMENT OF PATHOLOGY AND [address] [place], [place] [phone] [address] Manual differential (01/31/2020 5:10 AM CDT)Only the most recent of3 results within the time period is included. Manual differential PERFORMED [facility] Neutrophils 73.0 (H) 39.0 - 69.0 % [facility] Lymphocytes 21.0 (L) 25.0 - 45.0 % [facility] Monocytes 2.0 0.0 - 10.0 % [facility] Eosinophils 1.0 0.0 - 5.0 % [facility] Basophils 1.0 0.0 - 1.0 % [facility] Metamyelocytes 0 % [facility] Myelocytes 2 % [facility] Promyelocytes 0 % [facility] Platelet slide review Alexander adequate [facility] Ovalocytes Moderate [facility] Specimen Performing Organization Address City/[facility] Centercode Phone Number [facility] DEPARTMENT OF PATHOLOGY AND [address] [place] [address] [phone] [address] Ammonia level (01/31/2020 5:10 AM CDT) Pathologist Sig nature Ammonia 19 11 - 51 umol/L [facility] HOSPITAL Specimen Blood Performing Organization Address City/[facility] Phone Number [facility] DEPARTMENT OF PATHOLOGY AND [address] [place] [address] [phone] [address] Alcohol level, blood (01/31/2020 5:10 AM CDT)Only the most recent of2 results within the time period is included. Alcohol None Detected mg/dL [facility] Comment: HOSPITAL Normal None Detected Legal Intoxication in [place] 80 mg/dL (0.08%) - Whole Blood Toxic Concentration 200 mg/dL (0.2%) Potentially Fatal 350 - 500 mg/dL (0. 35 - 0.5%) Alcohol percent None Detected % [facility] Specimen Blood Performing Organization Address [facility] Phone Number [facility] DEPARTMENT OF PATHOLOGY AND [address] [place] [address] [phone] [address] Thyroid stimulating hormone (01/30/2020 10:20 PM CDT) Pathologist Sig nature TSH 1.42 0.27 - 4.20 uIU/mL [facility] ITAL Specimen Blood Performing Organization Address [facility] Phone Number [facility] DEPARTMENT OF PATHOLOGY AND [address] [place] [address] [phone] [address] T4, free (01/30/2020 10:20 PM CDT) Pathologist Sig nature T4, free 1.0 0.9 - 1.7 ng/dL [facility] Specimen Blood Performing Organization Address [facility] Phone Number [facility] DEPARTMENT OF PATHOLOGY AND [address] [place] [address] [phone] [address] Creatine kinase, total (CPK) (01/30/2020 10:20 PM CDT) Pathologist Sig nature Creatine kinase 26 26 - 192 U/L [facility] Specimen Blood Performing Organization Address City/[facility] Phone Number [facility] DEPARTMENT OF PATHOLOGY AND [address] [place] [phone] [place] [phone] Acetaminophen level (01/30/2020 10:20 PM CDT) Acetaminophen level <5.0 (L) 10.0 - 30.0 [facility] Comment: ug/mL [facility] Therapeutic 1 0-30 ug/mL [facility] Possible Toxicity 150- 200 ug/mL Probable Toxicity >200 ug/mL Specimen Blood Performing Organization Address [facility] Phone Number [facility] DEPARTMENT OF PATHOLOGY AND [address] [place] [address] Salicylate level (01/30/2020 10:20 PM CDT) Pathologist Sig [facility] Salicylate <3.0 3.0 - 30.0 mg/dL [facility] Specimen Blood Performing Organization Address [facility] Phone Number [facility] DEPARTMENT OF PATHOLOGY AND [address] [place] [address] ECG ED Preliminary Interpretation - Not an Order (01/30/2020 9:57 PM CDT) Narrative Performed At Harpreet Kinsey DO 02/01/2020 10:50 PM ECG ED Preliminary Interpretation - Not an Order Performed by: Harpreet Kinsey DO Authorized by: Harpreet Kinsey DO ECG reviewed by ED Physician in the abse nce of a front counter attendant: yes Interpretation: Interpretation: abnormal Rate: ECG rate: 91 ECG rate assessment: normal QRS: QRS axis: Left Conduction: Conduction: abnormal ST segments: ST segments: Normal T waves: T waves: normal Other findings: Other findings: LAE Comments: Septal infarct. POC glucose (10/25/2019 8:47 AM SPUN PASTE MACHINE OPERATOR)Only the most recent of10 resultswithin the time period is included. Pathologist Sig nature POC glucose 89 65 - 99 mg/dL [facility] Comment: HOSPITAL Application Architect Manager Name: Eli Clemens Device ID: [id number] Chartable: TM Notified RN Specimen Performing Organization Address City/State/Zipcode Phone Number [facility] DEPARTMENT OF PATHOLOGY AND [address] [place], [place] [address] [address] Vancomycin level, random (10/24/2019 5:13 AM SPUN PASTE MACHINE OPERATOR)Only the most recent of3 resultswithin the time period is included. Pathologist Sig nature Vancomycin, random 15.8 ug/mL [facility] ITAL Specimen Serum Performing Organization Address City/[facility]/Zipcode Phone Number [facility] DEPARTMENT OF PATHOLOGY AND [address] [place] [address] [phone] [address] Troponin (10/23/2019 12:59 PM SPUN PASTE MACHINE OPERATOR)Only the most recent of4 resultswithin the time period is included. Troponin 0.059 (H) 0.000 - 0.040 [facility] Comment: ng/mL HOSPITAL In patients suspected of having a myocardial infarctio n, along with all other appropriate clinical measures and actions includ ing ECG and other diagnostics as appropriate, measure Ultra TnI at 0 hrs and at 3 hrs. Myocardial infarction VERY LIKELY The 0 hr TnI level is > 0.10 ng/mL Myocardial infarction LIKELY The 0 hr TnI level is > 0.04 ng/mL and 3 hr level is i ncreased or decreased by at least 0.020 ng/mL Myocardial infarction VERY UNLIKELY Both the 0 hr and 3 hr TnI levels <= 0.04 ng/mL(within normal limits) OR 0 hr is > 0.04 ng/mL and 3 hr is increased OR decreased by less than 0.020 ng/mL Specimen Plasma specimen Performing Organization Address [facility] Phone Number [facility] DEPARTMENT OF PATHOLOGY AND [address] [place] [address] [place] [address] B natriuretic peptide (10/23/2019 6:07 AM SPUN PASTE MACHINE OPERATOR) Pathologist Sig nature BNP 374 (H) 0 - 100 pg/mL [facility] Specimen Blood Performing Organization Address [facility] Phone Number [facility] DEPARTMENT OF PATHOLOGY AND [address] [place] [address] [place] [address] Lipase level (10/23/2019 6:07 AM SPUN PASTE MACHINE OPERATOR)Only the most recent of2 resultswithin the time period is included. Pathologist Sig nature Lipase 18 13 - 60 U/L [facility] Specimen Plasma specimen Performing Organization Address [facility] Phone Number [facility] DEPARTMENT OF PATHOLOGY AND [address] [place] [address] [phone] [address] Amylase level (10/23/2019 6:07 AM SPUN PASTE MACHINE OPERATOR) Pathologist Sig nature Amylase 19 (L) 28 - 100 U/L [facility] Specimen Plasma specimen Performing Organization Address [facility] Phone Number [facility] DEPARTMENT OF PATHOLOGY AND [address] [place] [phone] Alpha fetoprotein (10/23/2019 4:31 AM SPUN PASTE MACHINE OPERATOR) Alpha fetoprotein 1.0 0.0 - 8.3 [facility] Comment: ng/mL [facility] The [employer] 8000 AFP immunoassay was used. HOSPITAL Results obtained with different assay methods or kits should not be used interchangeably and may be differen t. Specimen Serum Performing Organization Address [facility] Phone Number [facility] DEPARTMENT OF PATHOLOGY AND [address] [place] [phone] [place] [phone] [place] Lung Ventilation Perfusion (10/22/2019 4:51 PM SPUN PASTE MACHINE OPERATOR) Specimen Narrative Performed At CLINICAL HISTORY: PE suspected interme diate prob positive D-dimer [facility] TECHNIQUE: The patient breathed 15-20 mCi of xenon-133 gas throug h a closed ventilation system while dynamic imaging of the lungs was performed in the posterior and anterior projections. The patient wa s then injected with 5 mCi of [id number] intrave nously, followed by imaging of the lungs in anterior, posterio r, and oblique projections. FINDINGS: Prominent, nonsegmental, bilateral hilar perfusion def ects, seen slightly also on ventilation. Ventilation images demon strate mild, diffuse air trapping throughout the right lung (obstru ctive airways disease), although perfusion is only mil dly heterogeneous. Mildly reduced perfusion and ventilatio n in the left lung base. IMPRESSION: Low Probability of pulmonary embolism. [facility]-[id number] Procedure Note Interface, Radiology Results Incoming - 10/22/2019 5:08 PM SPUN PASTE MACHINE OPERATOR CLINICAL HISTORY: PE suspected intermediate prob positive D-dimer TECHNIQUE: The patient breathed 15-20 mCi of xenon- 133 gas through a closed ventilation system while dynamic imaging of the lungs was performed in the posterior and anterior projections. The patient was then injected with 5 mCi of [id number] intravenously, followed by imaging of the lungs in ante rior, posterior, and oblique projections. FINDINGS: Prominent, nonsegmental, bilateral hilar perfusion defects, seen slightly also on ventilation. Ventilation images demonstrate mild, diffuse air trapping throughout the right lung (obstructive airways disease), although perfusion is only mildly heterogeneous. Mildly reduced perfusion and ventilation in the left lung base. IMPRESSION: Low Probability of pulmonary embolism. [facility]-[id number] Performing Organization Address City/State/Zipcode Phone Number [facility] [address] [place] [address] D-dimer (10/22/2019 12:15 PM SPUN PASTE MACHINE OPERATOR) D-dimer 1.36 (H) 0.00 - 0.40 [facility] Comment: ug/mL [facility]OSPITAL Units are ug/ml Fibrinogen Equivalent Unit. When combined with low clinical probability, D-dimer r esults of less than 0.5 ug/ml FEU have a good negative pred ictive value in excluding PE or DVT. For D-dimer results greater than 0.5 ug/ml FEU furth er testing is indicated if PE or DVT is suspected clini juma. Elevated D-dimer results have been reported in DVT, PE , and DIC cases and may indicate the presence of a clot. D-dimer results may be elevated due to old age, pregna ncy, inflammatory diseases, trauma, post-operative states, sepsis, and malignancies. Specimen Blood Performing Organization Address City/[facility] Phone Number [facility] DEPARTMENT OF PATHOLOGY AND [address] [place] [phone] Urea nitrogen, urine, random (10/22/2019 11:40 AM SPUN PASTE MACHINE OPERATOR) Pathologist Sig [facility] Urea nitrogen, urine, 420 mg/dL [facility] Specimen Urine Performing Organization Address [facility] Phone Number [facility] DEPARTMENT OF PATHOLOGY AND [address] [place] [phone] Creatinine level, urine, random (10/22/2019 11:40 AM SPUN PASTE MACHINE OPERATOR) Pathologist Sig nature Creatinine, urine, 63 mg/dL [facility] Specimen Urine Performing Organization Address [facility] Phone Number [facility] DEPARTMENT OF PATHOLOGY AND [address] [place] [phone] Lactic acid level, SEPSIS - Now and repeat 2x every 3 hours (10/22/2019 3:50 AM SPUN PASTE MACHINE OPERATOR)Only the most recent of3 resultswithin the time period is included. Pathologist Sig [facility] Lactic acid 1.0 0.5 - 2.2 mmol/L [facility] Specimen Blood Performing Organization Address [facility] Phone Number [facility] DEPARTMENT OF PATHOLOGY AND [address] [place] [address] Abdomen Pelvis Wo Contrast (10/21/2019 10:49 PM SPUN PASTE MACHINE OPERATOR) Specimen Narrative Performed At EXAMINATION: CT ABDOMEN PELVIS WO CONT RAST HM [facility] CLINICAL HISTORY: abdominal pain fev er TECHNIQUE: Noncontrast images of the abdomen and pelvi s were obtained without intravenous iodinated contrast. The lack of in travenous contrast limits assessment of the solid organs. CT imaging was performed with iterative reconstruction technique and/o r automated exposure control to reduce rad iation dose. COMPARISON: 04/23/2017 IMPRESSION: ABDOMEN: 1. Liver: The liver is normal. No focal mass. 2. Gallbladder: The gallbladder is surgi juma absent. 3. Spleen: The spleen is not enlarged. 4. Pancreas: The pancreas is unremarkabl e. 5. Adrenal Glands: The adrenal glands ar e unremarkable. 6. Kidneys: There are 2 small 2 mm calculi in the left kidney best seen on series 601 image 48 that are nonobstructing. No hyd ronephrosis. No right-sided calculi. 7. Abdominal Aorta: Calcification of the abdominal aor ta is noted. No aneurysm. 8. Nodes: No enlarged retroperitoneal or mesenteric lymphadenopathy. 9. Bowel: Mildly dilated loops of proximal small bowel with moderate wall thickening in the jejunum and duodenum and ileum favoring a gastroenteritis/enteritis. Some decompressed loops of small bowel. A partial obstruction would be difficult t o exclude. No ascites. 10. Ascites: No ascites or fluid collect ions. PELVIS: 1.Pelvis: No mass, fluid collection or s ignificant adenopathy. 2. Bones: Osseous structures intact. No suspicious lesions. 3. Lung Bases: Minimal scarring or atelectasis left jon ng base with pleural thickening. SUMMARY: 1.Gastroenteritis/enteritis as above. Partial obstruct ion is thought to be less likely. Procedure Note Hm Interface, Radiology Results Incoming - 10/21/2019 11:01 PM SPUN PASTE MACHINE OPERATOR EXAMINATION: CT ABDOMEN PELVIS WO CONTRAST CLINICAL HISTORY: abdominal pain fever TECHNIQUE: Noncontrast images of the abd omen and pelvis were obtained without intravenous iodinated contrast. The lack of intravenous contrast limits assessment of the solid organs. CT imaging was performed with iterative reconstruction technique and/o r automated exposure control to reduce rad iation dose. COMPARISON: 04/23/2017 IMPRESSION: ABDOMEN: 1. Liver: The liver is normal. No focal mass. 2. Gallbladder: The gallbladder is surgi juma absent. 3. Spleen: The spleen is not enlarged. 4. Pancreas: The pancreas is unremarkabl e. 5. Adrenal Glands: The adrenal glands ar e unremarkable. 6. Kidneys: There are 2 small 2 mm calcu li in the left kidney best seen on series 601 image 48 that are nonobstructing. No hydronephrosis. No right-sided calculi. 7. Abdominal Aorta: Calcification of the abdominal aorta is noted. No aneurysm. 8. Nodes: No enlarged retroperitoneal or mesenteric lymphadenopathy. 9. Bowel: Mildly dilated loops of proxim al small bowel with moderate wall thickening in the jejunum and duodenum and ileum favoring a gastroenteritis/enteritis. Some decompressed loops of small bowel. A partial obstruction would be difficult t o exclude. No ascites. 10. Ascites: No ascites or fluid collect ions. PELVIS: 1.Pelvis: No mass, fluid collection or s ignificant adenopathy. 2. Bones: Osseous structures intact. No suspicious lesions. 3. Lung Bases: Minimal scarring or atele ctasis left lung base with pleural thickening. SUMMARY: 1.Gastroenteritis/enteritis as above. Pa rtial obstruction is thought to be less likely. Performing Organization Address City/[facility] Phone Number [address] [address] Venous blood gas (10/21/2019 10:15 PM SPUN PASTE MACHINE OPERATOR) Pathologist Sig nature pH, venous 7.43 (H) 7.32 - 7.[address] [facility] pCO2, venous 43 (L) 45 - [address] [facility] pO2, venous 44 (H) 25 - [address] [facility] Base excess, venous 4 (H) -2 - 2 meq/L [facility] O2 saturation, 79 (H) 40 - 70 % [facility] Bicarbonate, venous 28.0 21.0 - 28.0 [facility] mmol/L HOSPITAL Specimen Blood Performing Organization Address [facility] Phone Number [facility] DEPARTMENT OF PATHOLOGY AND [address] [place] [address] [phone] [address] Blood culture, aerobic & anaerobic (10/21/2019 9:42 PM SPUN PASTE MACHINE OPERATOR)Only the most recent of2 resultswithin the time period is included. Blood culture No growth after 5 days of incubation. [facility] isolate Comment: HOSPITAL Specimen Information Specimen Source: Blood Specimen Site: Antecubital, right Specimen Blood - Antecubital, right Performing Organization Address [facility] Phone Number [facility] DEPARTMENT OF PATHOLOGY AND [address] [place] [address] [phone] [address] Respiratory pathogen panel (10/21/2019 9:20 PM SPUN PASTE MACHINE OPERATOR) [facility] Respiratory Negative for all pathogens tested: [facility] N pathogen panel Negative for Adenovirus [facility] Negative for Coronavirus HKU1 [facility] Negative for Coronavirus NL63 Negative for Coronavirus 229E Negative for Coronavirus OC43 Negative for Human Metapneumovirus Negative for Rhinovirus/Enterovirus Negative for Influenza A Negative for Influenza A/H1 Negative for Influenza A/H3 Negative for Influenza A/H1-2009 Negative for Influenza B Negative for Parainfluenza Virus 1 Negative for Parainfluenza Virus 2 Negative for Parainfluenza Virus 3 Negative for Parainfluenza Virus 4 Negative for Respiratory Syncytial Virus Negative for Bordetella pertussis Negative for Chlamydophila pneumoniae Negative for Mycoplasma pneumoniae This real-time PCR assay detects the presence of nucle ic acids (RNA or DNA) for the respiratory pathogens liste d. A result of "Not-detected" does not exclude the possib ility of the presence of one or more pathogens at concentrat ions less than the detectable limits of the assay. Comment: Specimen Information Specimen Source: Nares Specimen Site: Left Specimen Nares - Left Performing Organization Address City/[facility]/Zipcode Phone Number [facility] DEPARTMENT OF PATHOLOGY AND [address] [place] [address] [phone] [address] Influenza antigen test, reflex negative to RPP (10/21/2019 9:20 PM SPUN PASTE MACHINE OPERATOR) [facility] Influenza antigen Negative for Influenza A/B antigen. [facility] Comment: HOSPITAL Specimen Information Specimen Source: Nares Specimen Site: Left Specimen Nares - Left Performing Organization Address City/[facility]/Zipcode Phone Number [facility] DEPARTMENT OF PATHOLOGY AND [address] [place] [address] [phone] [address] Partial thromboplastin time, activated (10/21/2019 8:56 PM SPUN PASTE MACHINE OPERATOR) [facility] PTT 31.8 23.0 - 36.0 [facility] TALB[facility] Comment: [facility] PTT therapeutic range for unfractionated heparin is 61.0-112.0 seconds which corresponds to Anti-Xa 0.3-0.7 U/ml. Specimen Blood Performing Organization Address City/[facility]/Zipcode Phone Number [facility] DEPARTMENT OF PATHOLOGY AND [address] [place], [place] [address] [facility] [address] [place] [address] CRITICAL CARE (10/21/2019 8:42 PM SPUN PASTE MACHINE OPERATOR) Narrative Performed At Oswald Marmolejo MD 10/31/2019 7:46 PM Critical Care Performed by: Oswald Marmolejo MD Authorized by: Oswald Marmolejo MD Critical care provider statement: Critical care time (minutes): 45 Critical care time was exclusive of: Separately b illable procedures and treating other patients and teaching sebas e Critical care was necessary to treat or prevent imminent or life-threatening deterioration of the following condit ions: Sepsis and dehydration Critical care was time spent personal ly by me on the following activities: Obtaining history from patient or surrog ate, interpretation of cardiac output measurements, evaluati on of patient's response to treatment, discussions with primary prov ider, development of treatment plan with patient or surrogate, blood dr aw for specimens, ordering and performing treatments and interventions, ordering and review of laboratory studies, ordering and review of radiogra phic studies, pulse oximetry, re-evaluation of patient's condition, review of old ch arts and examination of patient Ward 'yes' if you are taking over critical care for this patient from another provider.: no Total iron binding capacity (08/29/2019 11:35 AM SPUN PASTE MACHINE OPERATOR)Only the most recent of2 resultswithin the time period is included. Pathologist Sig nature Iron binding capacity 325 250 - 450 ug/dL [facility] Unsaturated iron binding 269 118 - 369 ug/dL [facility] capacity Iron level 56 27 - 139 ug/dL [facility] Iron saturation 17 15 - 55 % [facility] Specimen Blood Narrative Performed At Performed at: [facility] [address] [place], [place] [id number] 143 Nocturnist Physician: Otilio Jimenez MD, Phone: [phone] Performing Organization Address City/State/Zipcode Phone Number [facility] Ferritin level (08/29/2019 11:35 AM SPUN PASTE MACHINE OPERATOR)Only the most recent of2 resultswithin the time period is included. Pathologist Sig nature Ferritin level 87 15 - 150 ng/mL [facility] Specimen Blood Narrative Performed At Performed at: - [facility] [address] [place], [place] [address] 143 Nocturnist Physician: Otilio Jimenez MD, Phone: [phone] Performing Organization Address [facility] Phone Number [facility] laborer electroplating procedure (07/28/2019 3:20 PM SPUN PASTE MACHINE OPERATOR) Specimen Narrative Performed At This result has an attachment that is no t available. Angiographically normal coronary arteries. [facility] Performing Organization Address [facility] Phone Number [facility] [address] [place] [address], Smear review (07/27/2019 4:45 AM SPUN PASTE MACHINE OPERATOR)Only the most recent of4 resultswithin the time period is included. Pathologist Sig nature Platelet slide review Alexander slt decr [facility] Anisocytosis Moderate [facility] Ovalocytes [facility] Specimen Performing Organization Address [facility] Phone Number [facility] DEPARTMENT OF PATHOLOGY AND [address] [place] [address] [facility] [address] [place] [address] Celiac disease reflexive cascade (07/26/2019 7:00 AM CDT) IgA 177 68 - 408 mg/dL [facility] Comment: Total IgA is within or higher than established ranges. Tissue Transglutaminase, IgA to follow. REFERENCE INTERVAL: Immunoglobulin A Access complete set of age- and/or gender-specific ref erence intervals for this test in the [employer] [facility] Test Di rectory ([employer]). Performed by [email or web address], [address] [place], [place] [id number] [email or web address], Tristan Alfredo MD, Lab. Director Specimen Serum Performing Organization Address [facility] Phone Number [facility] [address] [place] [address] [facility] [address] [place] [address] Tissue transglutaminase Ab, IgA (07/26/2019 7:00 AM CDT) Tissue 0 0 - 3 U/mL [facility] transglutaminase Ab, Comment: LAB IgA No further celiac testing to be performed. INTERPRETIVE INFORMATION: Tissue Transglutaminase (tTG ) Antibody, IgA 3 U/mL or less: Negative 4-10 U/mL: Weak Positive 11 U/mL or greater: Positive Presence of the tissue transglutaminase (tTG) IgA anti body is associated with glutensensitive enteropathies such as celiac disease and dermatitis herpetiformis. tTG IgA antibody concentrations greater than 40 U/mL usually correlate with results of duodenal biopsies consistent with a diagnosis of ce liac disease. For antibody concentrations greater or equal to 4 U/mL but less than or equal to 40 U/mL, additional testing for endomysial (LELE) IgA concentrations may improve the po sitive predictive value for disease. Performed by [email or web address], [address] [place] [address] [email or web address], Tristan Alfredo MD, Lab. Director Specimen Serum Performing Organization Address City/[facility]/Zipcode Phone Number [facility] [address] [place] [address] [facility] [address] [place] [address] Surgical pathology request (07/24/2019 11:34 AM CDT) [facility] DEPARTMENT OF PATHOLOGY AND GENOMIC MEDICINE Surgical pathology See link below [facility] DEPARTMENT OF report for PDF Lab PATHOLOGY AND Report GENOMIC MEDICINE Result status This is Final [facility] DEPARTMENT OF Report for PATHOLOGY AND [id number] GENOMIC MEDICINE Specimen Performing Organization Address City/[facility]/Zipcode Phone Number [facility] DEPARTMENT OF PATHOLOGY AND [address] [place] [phone] GENOMIC MEDICINE Prepare RBC, 2 Units, Irradiated (07/23/2019 6:00 AM CDT) Product name Red Blood Cells BACOVA -1, Leukored [facility] Unit number [id number] [facility] Product code [id number] [facility] Dispense status Transfused [facility] Blood expiration date [facility] Blood type code [address] [facility] Blood type O POSITIVE [facility] Compatibility Compatible [facility] Specimen Blood Performing Organization Address City/[facility]/Zipcode Phone Number [facility] DEPARTMENT OF PATHOLOGY AND [address] [place], [place] [phone] GENOMIC MEDICINE [address] [address] Type and screen (07/23/2019 6:00 AM CDT) Pathologist Sig nature ABO grouping O [facility] Rh type POS [facility] Antibody screen (gel) NEG [facility] Specimen Blood Performing Organization Address City/[facility]/Zipcode Phone Number [facility] DEPARTMENT OF PATHOLOGY AND [address] [place] [phone] [facility] [address] [place] [address] Folate level (07/22/2019 3:30 PM CDT) Pathologist Sig nature Folate >20.0 4.8 - 24.2 ng/mL [facility] Specimen Serum Performing Organization Address City/[facility]/Zipcode Phone Number [facility] DEPARTMENT OF PATHOLOGY AND [address] [place] [phone] [facility] [address] [place] [phone] Vitamin B12 level (07/22/2019 3:30 PM CDT) Vitamin B12 [phone] [facility] Comment: pg/mL HOSPITAL Significant overlap exists between normal and deficien cy states. However, most patients with deficiencies will have Ser um B12 <200 pg/mL. Specimen Serum Performing Organization Address City/[facility]/Zipcode Phone Number [facility] DEPARTMENT OF PATHOLOGY AND [address] [place] [address] [phone] [address] MRI Lumbar Spine Wo Contrast (05/19/2019 11:31 AM CDT) Specimen Narrative Performed At This result has an attachment that is no t available. EXAMINATION: MRI LUMBAR SPINE WO CONTRAST [facility] CLINICAL HISTORY: M54.16 Radiculopathy lumbar region, radicular pain down R leg x 2-3 weeks COMPARISON: None TECHNIQUE: Multiplanar multisequence non enhanced MRI examination was performed of the Lumbar spine. FINDINGS: Last fully formed disc is designated as L5-S1. Severe intervertebral disc space narrowi ng at L5-S1 with Schmorl's node formation and mild anterior osteophyte formation. Mild intervertebral disc space narrowing posteriorly at L3-L4 and L4-L5. Alignment is within normal limits. Conus medullaris terminates near the mid aspect of L1. Ve rtebral body heights are maintained. No suspicious osseous lesion. Axial images through the disc spaces demonstrate the f ollowing: L1-L2: No significant posterior disc dis ease, spinal canal or neural foraminal stenosis. L2-L3: No significant posterior disc dis ease, spinal canal or neural foraminal stenosis. L3-L4: Minimal posterior disc bulge. Sev ere bilateral facet arthrosis and prominence of the posterior epidural fat superimposed on suspected mild congenital narrowing results in moderate spinal canal and lateral recess narrowing. Severe right neural foraminal narrowing secondary to foramin al disc protrusion and facet hypertrophy. Mild left neural foraminal narrowing. L4-L5: Diffuse posterior disc bulge and mild to moderate bilateral facet hypertrophy resulting in mild to moderate spinal canal and at least moderate left lateral recess narrowing with contact on the descending left L5 nerve root. Tiny left facet effusion. Patent right neural foramen. M ild to moderate left neural foraminal narrowing with possible small foraminal disc protrusion. L5-S1:Laminotomy changes with suspected partial discectomy and small central posterior disc protrusion measuring 3 to 4 mm in AP dimension. No significant spinal canal stenosis. Mild to moderate right neural foraminal narrowing. Patent left neural foramen. No significant posterior disc disease, s prasad canal or neural foraminal stenosis at other visualized levels. IMPRESSION: Multilevel degenerative changes which ap pear most pronounced at L3-L4 where right foraminal disc protrusion along with facet hypertrophy results in severe right neural foraminal stenosis. Additional degenerative changes are detailed above. [id number] Procedure Note Hm Interface, Radiology Results Incoming - 05/19/2019 12:15 PM CDT EXAMINATION: MRI LUMBAR SPINE WO CONTRAST CLINICAL HISTORY: M54.16 Radiculopathy lumbar region, radicular pain down R leg x 2-3 weeks COMPARISON: None TECHNIQUE: Multiplanar multisequence non enhanced MRI examination was performed of the Lumbar spine. FINDINGS: Last fully formed disc is designated as L5-S1. Severe intervertebral disc space narrowi ng at L5-S1 with Schmorl's node formation and mild anterior osteophyte formation. Mild intervertebral disc space narrowing posteriorly at L3-L4 and L4-L5. Alignment is within normal limits. Conus medullaris terminates near the mid aspect of L1. Ve rtebral body heights are maintained. No suspicious osseous lesion. Axial images through the disc spaces dem onstrate the following: L1-L2: No significant posterior disc dis ease, spinal canal or neural foraminal stenosis. L2-L3: No significant posterior disc dis ease, spinal canal or neural foraminal stenosis. L3-L4: Minimal posterior disc bulge. Sev ere bilateral facet arthrosis and prominence of the posterior epidural fat superimposed on suspected mild congenital narrowing results in moderate spinal canal and lateral recess narrowing. Severe right neural foraminal narrowing secondary to foramin al disc protrusion and facet hypertrophy. Mild left neural foraminal narrowing. L4-L5: Diffuse posterior disc bulge and mild to moderate bilateral facet hypertrophy resulting in mild to moderate spinal canal and at least moderate left lateral recess narrowing with contact on the descending left L5 nerve root. Tiny left facet effusion. Patent right neural foramen. M ild to moderate left neural foraminal narrowing with possible small foraminal disc protrusion. L5-S1:Laminotomy changes with suspected partial discectomy and small central posterior disc protrusion measuring 3 to 4 mm in AP dimension. No significant spinal canal stenosis. Mild to moderate right neural foraminal narrowing. Patent left neural foramen. No significant posterior disc disease, s prasad canal or neural foraminal stenosis at other visualized levels. IMPRESSION: Multilevel degenerative changes which ap pear most pronounced at L3-L4 where right foraminal disc protrusion along with facet hypertrophy results in severe right neural foraminal stenosis. Additional degenerative changes are detailed above. [id number] Performing Organization Address City/State/Zipcode Phone Number [facility] [address] [place] [address] XR Hips Bilateral Ap Lateral W Ap Pelvis (05/19/2019 10:10 AM CDT) Specimen Narrative Performed At Bilateral hip EXAMINATION: XR HIPS MANINDER ATERAL AP LATERAL W AP PELVIS [facility] CLINICAL HISTORY: M25.551 Pain in right hip, M25.552 Pain in left hip, Hip pain chronic initial exam COMPARISON: None. IMPRESSION: There is moderate degenerative change at the superior lateral acetabulum bilaterally. The joint spaces are moderately narrowed bilaterally. The femoral head maintains a smooth round contour on t he right but shows subtle flattening in the left hip. . There is no evidence of fracture on either side. [id number] Procedure Note Interface, Radiology Results Incoming - 05/19/2019 10:23 AM CDT Bilateral hip EXAMINATION: XR HIPS BILATERAL AP LATERAL W AP PELVIS CLINICAL HISTORY: M25.551 Pain in right hip, M25.552 Pain in left hip, Hip pain chronic initial exam COMPARISON: None. IMPRESSION: There is moderate degenerative change at the superior lateral acetabulum bilaterally. The joint spaces are moderately narrowed bilaterally. The femoral head maintains a smooth roun d contour on the right but shows subtle flattening in the left hip. . There is no evidence of fracture on e ither side. [id number] Performing Organization Address City/State/Zipcode Phone Number [facility] [address] [place] [address] after 05/10/2019 Insurance Payer Benefit Plan / Subscriber ID Effective Dates Phone Addre ss Type Group MEDICARE MEDICARE PART A xxxxxxxxxxx 2010-Present 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
--- OUTSIDE RECORDS SUMMARY | 2020-05-10 13:56 | XMS REPORT | Clinical Summary ---
:1945 Author Organization [facility] Address [address] [place] [address] Care Team Providers Name Role Phone Jackosmar Primary Care Provider Allergies Active Allergy Reactions Severity Noted Date Comments Buspirone 04/01/2013 Tetanus Vaccines And Toxoid 04/01/2013 Medications Medication Sig Dispensed Refills Start Date End Date Status ALPRAZolam (XANAX) 1 Take 1 mg by mouth 0 Active MG tablet every night as needed. diltiazem (CARDIZEM Take 240 mg by 0 Active CD) 240 MG 24 hr mouth daily. capsule potassium chloride Take 10 mEq by 0 Active (KLOR-CON) 10 MEQ CR mouth daily. tablet BUDESONIDE/FORMOTEROL Inhale by mouth 0 Active FUMARATE (SYMBICORT via inhaler. 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 Abdominal pain 04/01/2013 Abnormal liver function 04/01/2013 Screening for endocrine/metabolic/immunity disorders 0 04/01/2013 Liver fibrosis 04/01/2013 Hypokalemia 04/01/2013 Depression 04/01/2013 Decreased appetite 04/01/2013 Family History Medical History Relation Name Comments Lung disease Father Stroke Mother Relation Name Status Comments Father Mother Social History Tobacco Use Types Packs/Day Years Used Date Current Every Day Smoker Alcohol Use Drinks/Week oz/Week Comments No Sex Assigned at Date Recorded Not on file Job Start Date Occupation Industry Not on file Not on file Not on file Travel History Travel Start Travel End No recent travel history available. Last Filed Vital Signs Not on file Plan of Treatment Health Maintenance Due Date Last Done Comments BREAST CANCER SCREENING 1945 COLON CANCER SCREENING COLONOSCOPY 1945 PNEUMOCOCCAL 65+ LOW/MEDIUM RISK (1 of 2 - PCV13) 2010 INFLUENZA VACCINE (#1) 2020 Results Not on fileafter 05/10/2019 Insurance Payer Benefit Plan / Group Subscriber ID Type Phone A ddress MEDICARE MEDICARE A B xxxxxxxxxx Medicare FOR LIFE xxxxxxxxx Other Govt (, [place], [place], etc.)
--- NOTE | 2020-05-10 16:27 | RAD REPORT ---
EXAM DESCRIPTION: CT - CTHCSPWOC - 05/10/2020 4:19 pm CLINICAL HISTORY: Trauma, head and neck injury. fall injury;Pain COMPARISON: Head C Spine Mpr Wo Con dated 03/11/2017 TECHNIQUE: Axial 5 mm thick images of the head were obtained. Axial 2 mm thick images of the cervical spine were obtained with sagittal and coronal reconstruction images generated and reviewed. All CT scans are performed using dose optimization technique as appropriate and may include automated exposure control or mA/KV adjustment according to patient size. FINDINGS: CT HEAD WITHOUT CONTRAST: No acute hemorrhage, hydrocephalus or extra-axial collection is identified.No areas of brain edema or midline shift. The right mastoid air cell appears chronically opacified. The paranasal sinuses and mastoids are othe rwise clear.The calvarium is intact. CT CERVICAL SPINE WITHOUT CONTRAST: No fracture or subluxation.Mild upper cervical degenerative changes.No prevertebral soft tissues swel ling is identified. IMPRESSION: No acute intracranial or cervical spine findings.
--- NOTE | 2020-05-10 16:34 | RAD REPORT ---
EXAM DESCRIPTION: CT - Spine Lumbar Wo Con - 05/10/2020 4:25 pm CLINICAL HISTORY: Radiculopathy. fall injury;Pain COMPARISON: Spine Lumbar Wo Con dated 10/17/2019 TECHNIQUE: Axial noncontrast CT imaging of the lumbar spine was performed with coronal and sagittal re-formatted images. All CT scans are performed using dose optimization technique as appropriate and may include automated exposure control or mA/KV adjustment according to patient size. FINDINGS: The bones are diffusely osteopenic. Mild anterior wedge compression deformity is present a ffecting the L1 vertebral body in the L5 vertebral body. These appear stable since the comparative CT study. No new/acute compression fracture seen. Paraspinal tissues are normal in thickness. No paraspinal abscess or hematoma seen. Moderate lower lumbar degenerative changes with facet hypertrophy present resulting in spinal canal s tenosis at the lower lumbar levels. Small left renal calculus noted inferiorly. IMPRESSION: Chronic mild L1 and L5 vertebral compression fractures noted. No acute compression fracture identified. Lower lumbar spinal canal stenosis suspected.
--- NOTE | 2020-05-10 16:36 | RAD REPORT ---
EXAM DESCRIPTION: RAD - Pelvis - 05/10/2020 4:26 pm CLINICAL HISTORY: TRAUMA Trauma, pain COMPARISON: No comparisons FINDINGS: Bilateral hip osteoarthritis seen, severe on the right. No acute fracture seen.
--- NOTE | 2020-05-10 16:36 | RAD REPORT ---
EXAM DESCRIPTION: RAD - Shoulder Left 2 View - 05/10/2020 4:26 pm CLINICAL HISTORY: PAIN COMPARISON: No comparisons FINDINGS: No acute fracture or dislocation seen. Mild AC joint and glenohumeral joint arthritic jade ges.
--- NOTE | 2020-05-10 16:37 | RAD REPORT ---
EXAM DESCRIPTION: RAD - Elbow Left 3 View - 05/10/2020 4:26 pm CLINICAL HISTORY: Pain;Swelling COMPARISON: No comparisons FINDINGS: No acute fracture or dislocation seen.
--- NOTE | 2020-05-10 16:38 | RAD REPORT ---
EXAM DESCRIPTION: RAD - Hand Left 3 View - 05/10/2020 4:26 pm CLINICAL HISTORY: Pain;Swelling COMPARISON: No comparisons FINDINGS: Diffuse osteopenia is seen. Moderate radiocarpal arthritic changes. No acute fracture or d islocation suspected.
--- NOTE | 2020-05-10 16:51 | EDPHYS ---
Physician Documentation [facility] Name: Bebeto White Age: 74 yrs Sex: Female : 1945 Arrival Date: 05/10/2020 Time: 13:32 Bed 30 Private MD: ED Physician Maykel Morelos HPI: 05/10 16:42 This 74 yrs old Female presents to ER via Wheelchair with complaints of Hand jr8 Swelling - arm. 16:42 Trauma demographics: County: The [place] occurred in [place] Location of Injury: The jr8 injury occurred at home. Mechanism of injury: Fall:. Onset: The symptoms/episode began/occurred acutely. The patient has not experienced similar symptoms in the past. The patient has not recently seen a physician. Patient stated that she fell hitting her left shoulder and arm and hip. Has had some dizziness and nausea as well since incident happened but could not remember if she hit her head or not. Came to be evaluated for pain and noticed her left hand was swelling . Historical: - Allergies: 13:58 BuSpar; ca1 13:58 Hydrocodone-Acetaminophen; ca1 13:58 myacin; ca1 13:58 Protonix; ca1 - PMHx: 13:58 COPD; dumping syndrome; Endometrosis; fatty liver; Hepatitis B; Hernia; Hypertension; ca1 Hypokalemia; ibs; Kidney stones; Migraines; Pancreatic problem; - Immunization history:: Adult Immunizations. - Social history:: Smoking status: Patient/guardian denies using tobacco, the patient reports quitting approximately 3.5 years ago. ROS: 16:42 Eyes: Negative for injury, pain, redness, and discharge, ENT: Negative for injury, jr8 pain, and discharge, Cardiovascular: Negative for chest pain, palpitations, and edema, Respiratory: Negative for shortness of breath, cough, wheezing, and pleuritic chest pain, Abdomen/GI: Negative for abdominal pain, vomiting, diarrhea, and constipation. Positive for nausea Skin: Negative for injury, rash, and discoloration. 16:42 Neck: Positive for pain with movement, Negative for tenderness, bony tenderness. 16:42 Back: Positive for pain at rest, pain with movement, of the lumbar area and left low back. 16:42 MS/extremity: Positive for ecchymosis, pain, swelling, tenderness, of the left hand and ventral aspect of wrist . 16:42 Neuro: Positive for dizziness. Exam: 16:42 Head/Face: Normocephalic, atraumatic. Eyes: Pupils equal round and reactive to light, jr8 extra-ocular motions intact. Lids and lashes normal. Conjunctiva and sclera are non-icteric and not injected. Cornea within normal limits. Periorbital areas with no swelling, redness, or edema. ENT: Nares patent. No nasal discharge, no septal abnormalities noted. Tympanic membranes are normal and external auditory canals are clear. Oropharynx with no redness, swelling, or masses, exudates, or evidence of obstruction, uvula midline. Mucous membranes moist. Neck: Trachea midline, no thyromegaly or masses palpated, and no cervical lymphadenopathy. Supple, full range of motion without nuchal rigidity, or vertebral point tenderness. No Meningismus. Cardiovascular: Regular rate and rhythm with a normal S1 and S2. No gallops, murmurs, or rubs. Normal PMI, no JVD. No pulse deficits. Respiratory: Lungs have equal breath sounds bilaterally, clear to auscultation and percussion. No rales, rhonchi or wheezes noted. No increased work of breathing, no retractions or nasal flaring. Abdomen/GI: Soft, non-tender, with normal bowel sounds. No distension or tympany. No guarding or rebound. No evidence of tenderness throughout. Skin: Warm, dry with normal turgor. Normal color with no rashes, no lesions, and no evidence of cellulitis. Neuro: Awake and alert, GCS 15, oriented to person, place, time, and situation. Cranial nerves II-XII grossly intact. Motor strength 5/5 in all extremities. Sensory grossly intact. Cerebellar exam normal. 16:42 Back: pain, that is mild, of the lumbar area and left low back, ROM is painful, normal spinal alignment noted, CVA tenderness, is absent, vertebral tenderness, is appreciated at L4 and L5. 16:42 Musculoskeletal/extremity: Extremities: grossly normal except: noted in the left shoulder: pain, tenderness, noted in the left wrist: mild bruising noted to ventral left wrist with left hand swelling to the left CMC joint region , ROM: intact in all extremities, full active range of motion, full passive range of motion, limited active range of motion due to pain, limited passive range of motion due to pain, Circulation is intact in all extremities. Sensation intact. Vital Signs: 13:54 BP 115 / 61; Pulse 93; Resp 15 S; Temp 98.7(O); Pulse Ox 95% on R/A; Weight 69.85 kg ca1 (R); Height 5 ft. 0 in. (152.40 cm) (R); 16:00 BP 108 / 74; Pulse 87; Resp 17; Pulse Ox 96% ; bp 16:40 BP 136 / 73; Pulse 92; Resp 94; Pulse Ox 95% ; bp 13:54 Body Mass Index 30.08 (69.85 kg, 152.40 cm) ca1 MDM: 14:56 Patient medically screened. jr8 16:48 Data reviewed: vital signs, nurses notes, radiologic studies, CT scan, plain films. jr8 Data interpreted: Pulse oximetry: on room air is 95 %. Interpretation: normal. Counseling: I had a detailed discussion with the patient and/or guardian regarding: the historical points, exam findings, and any diagnostic results supporting the discharge/admit diagnosis, radiology results, the need for outpatient follow up, a family practitioner, to return to the emergency department if symptoms worsen or persist or if there are any questions or concerns that arise at home. 05/10 13:59 Order name: Hand Left 3 View XRAY; Complete Time: 16:48 [facility] 05/10 13:59 Order name: Elbow Left 3 View XRAY; Complete Time: 16:48 [facility] 05/10 13:59 Order name: Shoulder Left (2 View) XRAY; Complete Time: 16:48 [facility] 05/10 15:58 Order name: XRAY Pelvis; Complete Time: 16:48 8 05/10 15:58 Order name: CT Head C Spine; Complete Time: 16:48 jr8 05/10 15:58 Order name: CT Lumbar Spine Wo Con; Complete Time: 16:48 jr8 Administered Medications: 16:54 Drug: Diamond 5 mg-325 mg 1 tabs Route: PO; bp 17:13 Follow up: Response: No adverse reaction; Pain is decreased bp Disposition: 17:35 Co-signature as Attending Physician, Maykel Morelos MD. rn Disposition: 05/10/20 16:50 Discharged to Home. Impression: Contusion of left shoulder, Contusion of left hand, Contusion of left wrist, Low back pain. - Condition is Stable. - Discharge Instructions: Back Pain, Adult, Musculoskeletal Pain, Shoulder Pain, Wrist Pain. - Medication Reconciliation Form, Thank You Letter, Antibiotic Education, Prescription Opioid Use form. - Follow up: Private Physician; When: 2 - 3 days; Reason: Recheck today's complaints, Continuance of care, Re-evaluation by your physician. - Problem is new. - Symptoms have improved. Signatures: Dispatcher [employer] [facility] Maykel Morelos MD MD rn Navi Pan PA PA jr8 Wiley Pickens, RN RN bp Mila Villanueva RN RN ca1 Corrections: (The following items were deleted from the chart) 16:25 14:00 Wrist Left 3 View+RAD.RAD.BRZ ordered. [facility] 17:13 16:50 05/10/2020 16:50 Discharged to Home. Impression: Contusion of left shoulder; bp Contusion of left hand; Contusion of left wrist; Low back pain. Condition is Stable. Forms are Medication Reconciliation Form, Thank You Letter, Antibiotic Education, Prescription Opioid Use. Follow up: Private Physician; When: 2 - 3 days; Reason: Recheck today's complaints, Continuance of care, Re-evaluation by your physician. Problem is new. Symptoms have improved. jr8
--- NOTE | 2020-05-10 16:51 | ER ---
Nurse's Notes [facility] Name: Bebeto White Age: 74 yrs Sex: Female : 1945 Arrival Date: 05/10/2020 Time: 13:32 Bed 30 Private MD: Diagnosis: Contusion of left shoulder;Contusion of left hand;Contusion of left wrist;Low back pain Presentation: 05/10 13:54 Chief complaint: Patient states: Fell on the kitchen sink 2 nights ago, pain and ca1 swelling on L hand, L elbow. Coronavirus screen: Client denies travel out of the [place] in the last 14 days. At this time, the client does not indicate any symptoms associated with coronavirus-19. Ebola Screen: Patient negative for fever greater than or equal to 101.5 degrees Fahrenheit, and additional compatible Ebola Virus Disease symptoms Patient denies exposure to infectious person. Patient denies travel to an Ebola-affected area in the 21 days before illness onset. No symptoms or risks identified at this time. Initial Sepsis Screen: Does the patient meet any 2 criteria? No. Patient's initial sepsis screen is negative. Does the patient have a suspected source of infection? No. Patient's initial sepsis screen is negative. Risk Assessment: Do you want to hurt yourself or someone else? Patient reports no desire to harm self or others. Onset of symptoms was May 10, 2020. 13:54 Method Of Arrival: Wheelchair ca1 13:54 Acuity: ROLF 4 ca1 Triage Assessment: 13:58 General: Appears in no apparent distress. comfortable, Behavior is calm, cooperative, ca1 appropriate for age. Pain: Complains of pain in left hand and left arm. Historical: - Allergies: 13:58 BuSpar; ca1 13:58 Hydrocodone-Acetaminophen; ca1 13:58 myacin; ca1 13:58 Protonix; ca1 - PMHx: 13:58 COPD; dumping syndrome; Endometrosis; fatty liver; Hepatitis B; Hernia; Hypertension; ca1 Hypokalemia; ibs; Kidney stones; Migraines; Pancreatic problem; - Immunization history:: Adult Immunizations. - Social history:: Smoking status: Patient/guardian denies using tobacco, the patient reports quitting approximately 3.5 years ago. Screenin:00 Abuse screen: Denies threats or abuse. Denies injuries from another. Nutritional bp screening: No deficits noted. Tuberculosis screening: No symptoms or risk factors identified. Fall Risk None identified. Assessment: 15:00 General: Appears in no apparent distress. uncomfortable, Behavior is cooperative, bp appropriate for age, anxious. Pain: Complains of pain in left arm and left hand. Neuro: No deficits noted. Cardiovascular: No deficits noted. Respiratory: No deficits noted. GI: No signs and/or symptoms were reported involving the gastrointestinal system. : No signs and/or symptoms were reported regarding the genitourinary system. EENT: No deficits noted. Derm: No deficits noted. Musculoskeletal: Reports pain in left arm. 16:00 Reassessment: XRAY AT B/S. PT WANG TO CT. bp 16:40 Reassessment: ALL CURRENT ORDERS COMPLETE AND RESULTED. bp 17:12 Reassessment: PT D/C HOME VIA W/C WITH FAMILY, DX WITH LEFT ARM CONTUSIONS. bp Vital Signs: 13:54 BP 115 / 61; Pulse 93; Resp 15 S; Temp 98.7(O); Pulse Ox 95% on R/A; Weight 69.85 kg ca1 (R); Height 5 ft. 0 in. (152.40 cm) (R); 16:00 BP 108 / 74; Pulse 87; Resp 17; Pulse Ox 96% ; bp 16:40 BP 136 / 73; Pulse 92; Resp 94; Pulse Ox 95% ; bp 13:54 Body Mass Index 30.08 (69.85 kg, 152.40 cm) ca1 ED Course: 13:32 Patient arrived in ED. as 13:57 Triage completed. ca1 13:58 Arm band placed on right wrist. ca1 14:55 Navi Pan PA is PHCP. jr8 14:55 Maykel Morelos MD is Attending Physician. jr8 14:59 Wiley Pickens, KIANNA is Primary Nurse. bp 15:00 Patient has correct armband on for positive identification. Bed in low position. Call bp light in reach. Side rails up X2. 16:19 CT Head C Spine In Process Unspecified. EDMS 16:25 CT Lumbar Spine Wo Con In Process Unspecified. EDMS 16:27 Hand Left 3 View XRAY In Process Unspecified. EDMS 16:27 Elbow Left 3 View XRAY In Process Unspecified. EDMS 16:27 Shoulder Left (2 View) XRAY In Process Unspecified. EDMS 16:27 XRAY Pelvis In Process Unspecified. EDMS 17:12 No provider procedures requiring assistance completed. Patient did not have IV access bp during this emergency room visit. Administered Medications: 16:54 Drug: [place] 5 mg-325 mg 1 tabs Route: PO; bp 17:13 Follow up: Response: No adverse reaction; Pain is decreased bp Outcome: 16:50 Discharge ordered by MD. burgos 17:12 Discharged to home via wheelchair, with family. bp 17:12 Condition: stable 17:12 Discharge instructions given to patient, Instructed on discharge instructions, follow up and referral plans. Demonstrated understanding of instructions, follow-up care. 17:13 Patient left the ED. bp Signatures: Dispatcher [employer] EDMS Macarena Reyes Josh, PA PA jr8 Wiley Pickens, RN RN bp Mila Villanueva RN RN ca1
[2020-05-10] MEDS ORDERED: HYDROCODONE/APAP 5/325 MG TAB ONE (17:02)
[2020-05-10 17:58] VITALS: TEMP 98.7
[2020-05-10 18:00] VITALS: BP 136/73; O2SAT 95
== END 2020-05-10 17:13 | disposition home or self-care (01) ==
LOC: ER 13:30
DX: S60.222A Contusion of left hand, initial encounter (principal); S40.012A Contusion of left shoulder, initial encounter; S60.212A Contusion of left wrist, initial encounter; M54.5 Low back pain; W19.XXXA Unspecified fall, initial encounter; Y93.9 Activity, unspecified; Y92.009 Unspecified place in unspecified non-institutional (private) residence as the place of occurrence of the external cause; Z88.3 Allergy status to other anti-infective agents; Z88.5 Allergy status to narcotic agent; Z88.6 Allergy status to analgesic agent; Z88.8 Allergy status to other drugs, medicaments and biological substances
CPT/HCPCS: 70450; 72125; 72131; 72170; 99283

== ENCOUNTER 2020-05-20 15:50 | Inpatient (IN) | payer OTHER ==
[2020-05-20] MEDS ORDERED: FUROSEMIDE 20 MG/ 2ML VIAL ONE (16:31)
[2020-05-20 17:02] LABS: Absolute Lymphocytes (CBC) 0.7 K/uL (0.7-4.9); Basophils % 0.3 % (0-1.3); Hematocrit 32.2 % (36.0-45.0); Lymphocytes % 3.7 % (15.3-44.8); MPV 8.8 fL (7.6-11.3); RBC Red Blood Cell Count 3.89 M/uL (3.86-4.86)
[2020-05-20 17:03] LABS: Protime INR 1.18
[2020-05-20 17:08] LABS: Arterial Blood Carboxyhemoglob 0.4 % (0-1.5); Blood O2 Saturation 95.2 % (92-98.5)
--- NOTE | 2020-05-20 17:15 | RAD REPORT ---
EXAM DESCRIPTION: RAD - Chest Single View - 05/20/2020 4:58 pm CLINICAL HISTORY: COPD Chest pain. COMPARISON: Chest Single View dated 10/11/2019; Chest Single View dated 03/12/2017; Chest Single View dated 03/11/2017; Chest Single View dated 03/02/2017 FINDINGS: Portable technique limits examination quality. Asymmetric interstitial lung opacities are present, greater on the left, suspicious for viral pneumon itis/ bronchitis. Small left pleural effusion is probably present as well. The heart is normal in siz e. No displaced fractures.
[2020-05-20 17:19] LABS: ALT/SGPT 21 U/L (12-78); AST/SGOT 22 U/L (15-37); Alkaline Phosphatase 62 U/L (45-117); BUN Blood Urea Nitrogen 33 mg/dL (7-18); Bicarbonate 27 mmol/L (21-32); Bilirubin Direct 0.1 mg/dL (0-0.2); Bilirubin Total 0.5 mg/dL (0.2-1.0); Glucose Level 92 mg/dL (74-106); Lipase 45 U/L (73-393); Magnesium 3.3 mg/dL (1.8-2.4); NT PRO-BNP 2093 pg/mL (<125); Potassium 4.6 mmol/L (3.5-5.1); Protein, Total 7.8 g/dL (6.4-8.2); Sodium Level 133 mmol/L (136-145); Troponin (Emerg Dept Use Only) < 0.02 ng/mL (0.0-0.045)
[2020-05-20] MEDS ORDERED: NA CHLORIDE 0.9% 500 ML ONE (17:45)
[2020-05-20] MEDS ORDERED: AZITHROMYCIN IV 500 MG in NA CHLORIDE 0.9% 250 ML IVPB ONE (18:00)
--- NOTE | 2020-05-20 18:38 | RAD REPORT ---
EXAM DESCRIPTION: CT - Chest For Pe Angio - 05/20/2020 6:11 pm CLINICAL HISTORY: Chest pain. COPD COMPARISON: Chest Abd Pelvis Wo Con dated 10/11/2019 TECHNIQUE: CT angiogram of the pulmonary arteries was performed with MIP. All CT scans are performed using dose optimization technique as appropriate and may include automated exposure control or mA/KV adjustment according to patient size. FINDINGS: No evidence of pulmonary thromboembolism. No acute aortic finding demonstrated. Emphysematous changes are present with airspace and interstitial lung opacity seen in the left lung, greatest in the left lower lobe compatible with pneumonia. Trace left pleural effusion. No concerning bony finding. IMPRESSION: No evidence of pulmonary thromboembolism. Moderate left lung pneumonia pattern.
--- NOTE | 2020-05-20 18:50 | ER ---
Nurse's Notes [facility] Name: Bebeto White Age: 74 yrs Sex: Female : 1945 Arrival Date: 05/20/2020 Time: 15:57 Bed 8 Private MD: Diagnosis: Pneumonia, unspecified organism Presentation: 05/20 16:09 Chief complaint: Patient states: dyspnea, spouse stated that she's been confused as sv well. Coronavirus screen: Client denies travel out of the [place] in the last 14 days. difficulty breathing, Client presents with at least one sign or symptom that may indicate coronavirus-19. Standard/surgical mask placed on the client. Provider contacted for isolation considerations. Ebola Screen: No symptoms or risks identified at this time. Risk Assessment: Do you want to hurt yourself or someone else? Patient reports no desire to harm self or others. Onset of symptoms was May 20, 2020. 16:09 Method Of Arrival: Wheelchair sv 16:09 Acuity: ROLF 3 sv 16:09 Initial Sepsis Screen: Does the patient meet any 2 criteria? HR > 90 bpm. No. Patient's sv initial sepsis screen is negative. Does the patient have a suspected source of infection? No. Patient's initial sepsis screen is negative. Historical: - Allergies: 16:11 BuSpar; sv 16:11 Hydrocodone-Acetaminophen; sv 16:11 myacin; sv 16:11 Protonix; sv - Home Meds: 16:59 Creon 36,000-114,000- 180,000 unit oral cpDR 4x per day [Active]; diltiazem HCl 90 mg jr10 Oral tab twice a day [Active]; ferrous gluconate 324 mg (36 mg iron) Oral tab daily [Active]; folic acid 1 mg Oral tab once daily [Active]; flecainide 50 mg oral tab every 12 hours [Active]; hydralazine 50 mg Oral tab three times a day [Active]; omeprazole 40 mg Oral cpDR 2 times per day [Active]; sertraline 100 mg oral tab twice a day [Active]; potassium chloride 10 mEq Oral TbER 2 times per day [Active]; furosemide 40 mg Oral tab 2 times per day [Active]; tramadol 50 mg Oral tab as needed [Active]; clonazepam 1 mg Oral tab as needed [Active]; - PMHx: 16:11 COPD; dumping syndrome; Hepatitis B; Hernia; Endometrosis; fatty liver; Hypertension; sv Hypokalemia; ibs; Kidney stones; Migraines; Pancreatic problem; - Immunization history:: Adult Immunizations up to date. - Social history:: Smoking status: unknown. Screenin:00 Abuse screen: Denies threats or abuse. Denies injuries from another. Nutritional jr10 screening: No deficits noted. Tuberculosis screening: No symptoms or risk factors identified. Fall Risk No fall in past 12 months (0 pts). No secondary diagnosis (0 pts). IV access (20 points). Ambulatory Aid- None/Bed Rest/Nurse Assist (0 pts). Gait- Weak (10 pts.). Mental Status- Overestimates/Forgets Limitations (15 pts.). Assessment: 16:59 Reassessment: respiratory at bedside for ABG. jr10 17:00 General: Appears in no apparent distress. Behavior is appropriate for age. Pain: Denies jr10 pain. Neuro: Level of Consciousness is awake, alert, obeys commands, Oriented to person, place, Speech is normal. Cardiovascular: Denies chest pain, Capillary refill < 3 seconds Patient's skin is warm and dry. Pulses are all present. Edema is absent. Rhythm is sinus tachycardia. Respiratory: Reports shortness of breath cough that is pt reports hx of asthma and COPD, is a chronic home O2 user at 4L NC Airway is patent Respiratory effort is even, unlabored, Respiratory pattern is symmetrical, tachypnea Breath sounds with wheezes in left posterior upper lobe and right posterior upper lobe Onset: The symptoms/episode began/occurred 3 days , the patient has moderate shortness of breath. GI: Abdomen is round Bowel sounds present X 4 quads. Abd is soft and non tender Reports diarrhea, nausea. : No deficits noted. No signs and/or symptoms were reported regarding the genitourinary system. EENT: No deficits noted. No signs and/or symptoms were reported regarding the EENT system. Derm: Skin has skin tears on pt has cat scratches noted to jacob upper extremities. Musculoskeletal: Reports weakness in generalized. 19:15 General: Appears in no apparent distress. comfortable, Behavior is calm, cooperative. mg2 Pain: Denies pain. Neuro: Level of Consciousness is awake, alert, obeys commands, Oriented to person, place. Cardiovascular: Capillary refill < 3 seconds Patient's skin is warm and dry. Respiratory: Airway is patent Respiratory effort is even, unlabored, Respiratory pattern is regular, symmetrical. 20:00 Reassessment: meal served. mg2 Vital Signs: 16:09 BP 113 / 69; Pulse 111; Resp 26; Temp 98.1; Pulse Ox 97% on 3 lpm NC; sv 17:00 BP 99 / 42; Pulse 108; Resp 16; Pulse Ox 95% on 4 lpm NC; jr10 18:47 Pulse 104; Resp 16; Temp 99.5(O); Pulse Ox 100% on 4 lpm NC; jr10 18:53 BP 108 / 68; Pulse 106; Resp 16; Pulse Ox 100% on 4 lpm NC; jr10 20:00 BP 107 / 57; Pulse 101; Resp 20; Pulse Ox 100% on R/A; ca1 21:00 BP 97 / 50; Pulse 99; Resp 20; Pulse Ox 100% on R/A; ca1 21:31 BP 106 / 53; Pulse 95; Resp 18; Temp 98.1; Pulse Ox 100% on 4 lpm NC; mg2 ED Course: 15:57 Patient arrived in ED. ds1 16:00 Eli [facility] FNP-C [facility]. snw 16:00 Maykel Morelos MD is Attending Physician. snw 16:10 Triage completed. sv 16:11 Arm band placed on. sv 16:16 Adriana Velasquez, RN is Primary Nurse. jr10 16:58 XRAY Chest (1 view) In Process Unspecified. EDMS 17:00 Patient has correct armband on for positive identification. Placed in gown. Bed in low jr10 position. Call light in reach. Side rails up X2. nuclear monitoring technician on. Pulse ox on. NIBP on. 17:00 Inserted saline lock: 20 gauge in right antecubital area, using aseptic technique. IV jr10 is patent, is intact, with good blood return, Flushed. 17:08 No provider procedures requiring assistance completed. jr10 18:08 Gallagher cath inserted, using sterile technique, 16 Fr., by hospice music therapist, balloon inflated, to jr10 gravity drainage, returned clear yellow urine. Patient tolerated well. 18:11 CT Chest For PE Angio In Process Unspecified. EDMS 18:49 Oscar Morelos MD is Hospitalizing Provider. snw 21:14 Patient admitted, IV remains in place. ca1 Administered Medications: 16:20 Drug: Zithromax 500 mg Route: IVPB; Infused Over: 1 hrs; Site: right antecubital; jr10 21:35 Follow up: Response: No adverse reaction; IV Status: Completed infusion mg2 18:03 Drug: NS 0.9% 500 ml Volume: 500 ml; Route: IV; Rate: 1 bolus; Site: right antecubital; jr10 21:35 Follow up: Response: No adverse reaction; IV Status: Completed infusion; IV Intake: mg2 500ml 18:04 Drug: Lasix 20 mg Route: IVP; Site: right antecubital; jr10 18:48 Follow up: Response: No adverse reaction jr10 Intake: 21:35 IV: 500ml; Total: 500ml. mg2 Outcome: 18:50 Decision to Hospitalize by Provider. snw 21:30 Admitted to Med/surg accompanied by tech, room 232, with oxygen, with chart, Report mg2 called to KIANNA Ojeda 21:30 Condition: stable 21:30 Instructed on the need for admit, Demonstrated understanding of instructions. 21:38 Patient left the ED. mg2 Signatures: Dispatcher [employer] EDMS Charley Petersen RN RN sv Eli Van, JEWELRY BENCH WORKER-C JEWELRY BENCH WORKER-Jackie Aquino ds1 Daniel Ferris RN KIANNA mg2 Mila Villanueva RN KIANNA ca1 Adriana Velasquez RN RN jr10 Corrections: (The following items were deleted from the chart) 16:12 16:09 Temp 98.1F; sv sv 18:50 18:47 Pulse 104bpm; Resp 16bpm; Pulse Ox 100% RA; Temp 99.5F Oral; jr10 jr10
--- NOTE | 2020-05-20 18:50 | EDPHYS ---
Physician Documentation [facility] Name: Bebeto White Age: 74 yrs Sex: Female : 1945 Arrival Date: 05/20/2020 Time: 15:57 Bed 8 Private MD: ED Physician Maykel Morelos HPI: 05/20 16:59 This 74 yrs old Female presents to ER via Wheelchair with complaints of snw Breathing Difficulty. 16:59 The patient has shortness of breath at rest. Onset: The symptoms/episode began/occurred snw gradually, 2 day(s) ago, and became worse today. Duration: The symptoms are continuous. Associated signs and symptoms: Pertinent positives: confusion. Severity of symptoms: At their worst the symptoms were moderate. It is unknown whether or not the patient has had similar symptoms in the past. sees Dr. Hdz, hx of Lung Ca with resection. Historical: - Allergies: 16:11 BuSpar; sv 16:11 Hydrocodone-Acetaminophen; sv 16:11 myacin; sv 16:11 Protonix; sv - Home Meds: 16:59 Creon 36,000-114,000- 180,000 unit oral cpDR 4x per day [Active]; diltiazem HCl 90 mg jr10 Oral tab twice a day [Active]; ferrous gluconate 324 mg (36 mg iron) Oral tab daily [Active]; folic acid 1 mg Oral tab once daily [Active]; flecainide 50 mg oral tab every 12 hours [Active]; hydralazine 50 mg Oral tab three times a day [Active]; omeprazole 40 mg Oral cpDR 2 times per day [Active]; sertraline 100 mg oral tab twice a day [Active]; potassium chloride 10 mEq Oral TbER 2 times per day [Active]; furosemide 40 mg Oral tab 2 times per day [Active]; tramadol 50 mg Oral tab as needed [Active]; clonazepam 1 mg Oral tab as needed [Active]; - PMHx: 16:11 COPD; dumping syndrome; Hepatitis B; Hernia; Endometrosis; fatty liver; Hypertension; sv Hypokalemia; ibs; Kidney stones; Migraines; Pancreatic problem; - Immunization history:: Adult Immunizations up to date. - Social history:: Smoking status: unknown. ROS: 16:58 Constitutional: Negative for fever, chills, and weight loss, Eyes: Negative for injury, snw pain, redness, and discharge, ENT: Negative for injury, pain, and discharge, Neck: Negative for injury, pain, and swelling, Cardiovascular: Negative for chest pain, palpitations, and edema, Abdomen/GI: Negative for abdominal pain, nausea, vomiting, diarrhea, and constipation, Back: Negative for injury and pain, : Negative for injury, bleeding, discharge, and swelling, MS/Extremity: Negative for injury and deformity, Skin: Negative for injury, rash, and discoloration. 16:58 Respiratory: Positive for shortness of breath, wheezing, expiratory. 16:58 Neuro: Positive for Confusion. Exam: 16:00 Constitutional: The patient appears alert, obese, Confused snw 16:00 Head/Face: Normocephalic, atraumatic. Eyes: Pupils equal round and reactive to light, snw extra-ocular motions intact. Lids and lashes normal. Conjunctiva and sclera are non-icteric and not injected. Cornea within normal limits. Periorbital areas with no swelling, redness, or edema. ENT: Nares patent. No nasal discharge, no septal abnormalities noted. Tympanic membranes are normal and external auditory canals are clear. Oropharynx with no redness, swelling, or masses, exudates, or evidence of obstruction, uvula midline. Mucous membranes moist. Neck: Trachea midline, no thyromegaly or masses palpated, and no cervical lymphadenopathy. Supple, full range of motion without nuchal rigidity, or vertebral point tenderness. No Meningismus. Chest/axilla: Normal chest wall appearance and motion. Nontender with no deformity. No lesions are appreciated. 16:00 Abdomen/GI: Soft, non-tender, with normal bowel sounds. No distension or tympany. No guarding or rebound. No evidence of tenderness throughout. Back: No spinal tenderness. No costovertebral tenderness. Full range of motion. Skin: Warm, dry with normal turgor. Normal color with no rashes, no lesions, and no evidence of cellulitis. MS/ Extremity: Pulses equal, no cyanosis. Neurovascular intact. Full, normal range of motion. 16:00 Cardiovascular: Rate: tachycardic, Rhythm: regular, Heart sounds: normal, Edema: 2+ edema to level of left foot, left toes, right foot and right toes. 16:00 Respiratory: mild respiratory distress is noted, Respirations: prolonged exhalation, that is moderate, intercostal retractions, shallow respirations, Breath sounds: wheezing: expiratory is heard diffusely. 16:00 Neuro: Orientation: to person, Not oriented to time, situation, pt aware it is 2020 but thinks Colleen is President. Vital Signs: 16:09 BP 113 / 69; Pulse 111; Resp 26; Temp 98.1; Pulse Ox 97% on 3 lpm NC; sv 17:00 BP 99 / 42; Pulse 108; Resp 16; Pulse Ox 95% on 4 lpm NC; jr10 18:47 Pulse 104; Resp 16; Temp 99.5(O); Pulse Ox 100% on 4 lpm NC; jr10 18:53 BP 108 / 68; Pulse 106; Resp 16; Pulse Ox 100% on 4 lpm NC; jr10 20:00 BP 107 / 57; Pulse 101; Resp 20; Pulse Ox 100% on R/A; ca1 21:00 BP 97 / 50; Pulse 99; Resp 20; Pulse Ox 100% on R/A; ca1 21:31 BP 106 / 53; Pulse 95; Resp 18; Temp 98.1; Pulse Ox 100% on 4 lpm NC; mg2 MDM: 16:00 Patient medically screened. snw 18:46 Data reviewed: vital signs, nurses notes. Data interpreted: Pulse oximetry: on room air snw is 97 %. Interpretation: normal. Counseling: I had a detailed discussion with the patient and/or guardian regarding: the historical points, exam findings, and any diagnostic results supporting the discharge/admit diagnosis, lab results, radiology results, the need for further work-up and treatment in the hospital. Response to treatment: the patient's symptoms have mildly improved after treatment. Physician consultation: Bashir TATUM was called at 18:47, was contacted at 18:47, regarding admission, to the telemetry unit. and will see patient in ED, shortly. 05/20 16:16 Order name: Basic Metabolic Panel; Complete Time: 17:20 snw 05/20 16:16 Order name: CBC with Diff; Complete Time: 19:36 snw 05/20 16:16 Order name: LFT's; Complete Time: 17:20 snw 05/20 16:16 Order name: Magnesium; Complete Time: 17:20 snw 05/20 16:16 Order name: NT PRO-BNP; Complete Time: 17:20 snw 05/20 16:16 Order name: PT-INR; Complete Time: 17:36 snw 05/20 16:16 Order name: Troponin (emerg Dept Use Only); Complete Time: 17:20 snw 05/20 16:16 Order name: ABG; Complete Time: 17:19 snw 05/20 16:16 Order name: AMMONIA; Complete Time: 17:19 snw 05/20 16:16 Order name: Lactate; Complete Time: 17:19 snw 05/20 16:16 Order name: Procalcitonin; Complete Time: 17:56 snw 05/20 16:16 Order name: Lipase; Complete Time: 17:20 snw 05/20 19:34 Order name: Manual Differential; Complete Time: 19:36 EDMS 05/20 16:16 Order name: XRAY Chest (1 view); Complete Time: 17:19 snw 05/20 16:16 Order name: EKG; Complete Time: 16:17 snw 05/20 16:16 Order name: Cardiac monitoring; Complete Time: 17:08 snw 05/20 16:16 Order name: EKG - Nurse/Tech; Complete Time: 16:59 snw 05/20 16:16 Order name: IV Saline Lock; Complete Time: 17:08 snw 05/20 16:16 Order name: Labs collected and sent; Complete Time: 17:08 snw 05/20 16:16 Order name: O2 Per Protocol; Complete Time: 16:18 snw 05/20 16:16 Order name: O2 Sat Monitoring; Complete Time: 16:18 snw 05/20 17:20 Order name: CT Chest For PE Angio; Complete Time: 18:42 snw 05/20 20:13 Order name: SARS-COV-2 RT PCR; Complete Time: 20:13 EDMS 05/20 20:36 Order name: CT Head Brain wo Cont snw 05/20 21:08 Order name: CT; Complete Time: 21:08 EDMS 05/20 16:16 Order name: Gallagher; Complete Time: 18:04 snw EC:00 Rate is 107 beats/min. Rhythm is regular. QRS [place] is Normal. QRS interval is snw prolonged. Clinical impression: Sinus tachycardia. Administered Medications: 16:20 Drug: Zithromax 500 mg Route: IVPB; Infused Over: 1 hrs; Site: right antecubital; jr10 21:35 Follow up: Response: No adverse reaction; IV Status: Completed infusion mg2 18:03 Drug: NS 0.9% 500 ml Volume: 500 ml; Route: IV; Rate: 1 bolus; Site: right antecubital; jr10 21:35 Follow up: Response: No adverse reaction; IV Status: Completed infusion; IV Intake: mg2 500ml 18:04 Drug: Lasix 20 mg Route: IVP; Site: right antecubital; jr10 18:48 Follow up: Response: No adverse reaction jr10 Disposition: 05/20/20 18:50 Hospitalization ordered by Oscar Morelos for Inpatient Admission. Preliminary diagnosis is Pneumonia, unspecified organism. - Bed requested for Telemetry/MedSurg (Inpatient). - Status is Inpatient Admission. mg2 - Condition is Stable. - Problem is new. - Symptoms have worsened. Addendum: 05/24/2020 07:12 Co-signature as Attending Physician, Maykel Morelos MD. r n Signatures: Dispatcher [employer] EDMS Charley Petersen, RN KIANNA Mirella Lezama, RN KIANNA Eli Van, FIRE SPRINKLER FITTER-C FIRE SPRINKLER FITTER-Csnw Maykel Morelos MD MD rn [place]ose, Michele, RN RN mg2 Adriana Velasquez, RN RN jr10 Corrections: (The following items were deleted from the chart) 05/20 18:35 16:17 BiPap ([employer] Only)+RC.RAD.BRZ ordered. EDMS EDMS 19:07 16:17 CORONAVIRUS+MR.LAB.BRZ ordered. EDTN EDMS 21:09 18:50 Hospitalization Ordered by Oscar Morelos MD for Inpatient Admission. Preliminary diagnosis is Pneumonia, unspecified organism. Bed requested for Telemetry/MedSurg (Inpatient). Status is Inpatient Admission. Condition is Stable. Problem is new. Symptoms have worsened. snw 21:38 21:09 05/20/2020 18:50 Hospitalization Ordered by Oscar Morelos MD for Inpatient mg2 Admission. Preliminary diagnosis is Pneumonia, unspecified organism. Bed requested for Telemetry/MedSurg (Inpatient). Status is Inpatient Admission. Condition is Stable. Problem is new. Symptoms have worsened. mw
[2020-05-20 19:34] LABS: Platelet Estimate ADEQ
[2020-05-20 19:35] LABS: Blood Morphology Comment NOT SEEN (NOT SEEN); Platelets, Giant OCC
--- NOTE | 2020-05-20 20:31 | P.HP ---
Certification for Inpatient With expected LOS: >2 Midnights Patient will require the following post-hospital care: None Practitioner: I am a practitioner with admitting privileges, knowledge of patient current condition, hospital course, and medical plan of care. Services: Services provided to patient in accordance with Admission requirements found in Title 42 Section 412.3 of the Code of Federal Regulations <Bashir Rey - Last Filed: 05/20/20 20:25> Patient History Date of Service: 05/20/20 Reason for admission: Pneumonia History of Present Illness: 74-year-old female with past medical history of COPD, lung cancer status post resection, hepatitis-B, kidney stones, hypertension, and chronic pancreas problems presents to the emergency room complaining of breathing difficulty. Patient states the symptoms started 2 days ago and have progressively worsened. is bedside. states that the patient is also slightly confused which is not her baseline. In the emergency room patient was found to be hypoxic with O2 saturations in the low 80s. She is on home oxygen at 3 L nasal cannula. CTA of the chest shows a moderate left lung pneumonia. Blood work in the ER shows a white cell count of 19.2, hemoglobin of 10.1, hematocrit of 32.2, a creatinine of 1.83. Patient's baseline in October of 2019 was 0.92. Also pro calloused lightly elevated at 1.34. She is also requiring more oxygen and currently on 4 L nasal cannula to maintain oxygen saturations above 92%. On physical exam patient is alert and oriented x2. She is pleasant and cooperative but slightly confused. thinks it is likely due to her low oxygen levels. states that patient has had episodes like this in the past. Patient will be admitted and further evaluated. Home medications list reviewed: No - Past Medical/Surgical History Diabetic: No -: GERD -: HTN, left lower lobe lung cancer stage IA resected in 2016 at [facility] -: COPD -: Fatty liver -: History of pancreatic dysfunction -: Migraines -: IBS/dumping syndrome -: Kidney stones with ureteral stent -: Endometriosis -: History of hepatitis -: ENDOMETRIOSIS -: HEPATITIS B -: Tonsillectomy -: Cholecystectomy -: D&C -: CATARACT REMOVAL -: TUMMY TUCK -: Tubal ligation -: JEJUNAL BYPASS -: Left lobe lobectomy Psychosocial/ Personal History: The patient is of 51 years. She has 1 child. She does not work. - Family History Mother -: Lung disease Notes: COPD Father -: Lung disease Notes: COPD - Social History Smoking Status: Never smoker Alcohol use: No CD- Drugs: No Caffeine use: No Place of Residence: Home <Bashir Rey - Last Filed: 05/20/20 20:25> Date of Service: 05/21/20 <Oscar Morelos - Last Filed: 05/21/20 20:42> Allergies buspirone HCl [From BuSpar] Adverse Reaction (Verified 09/20/12 16:23) hallucinate pantoprazole [From Protonix] Adverse Reaction (Verified 03/11/17 21:58) Dizziness myacin Adverse Reaction (Uncoded 03/11/17 21:58) severe dehydration mycin Adverse Reaction (Uncoded 09/20/12 16:23) severe dehydration Home Medications: Albuterol Sulfate [Proair Hfa] 2 puff IH QID PRN 04/03/16 Diltiazem HCl [Diltiazem 24Hr Cd] 90 mg PO BID 04/03/16 Sertraline HCl 100 mg PO BID 04/03/16 Umeclidinium Brm/Vilanterol Tr [Anoro Ellipta 62.5-25 Mcg INH] 1 puff IH DAILY 04/03/16 Lipase/Protease/Amylase [Hugo Dr 36,000 Units Capsule] 1 tab PO QID 03/11/17 Potassium Chloride [Klor-Con M10] 10 meq PO BID 03/11/17 Acetaminophen [Tylenol Arthritis] 650 mg PO Q8HP PRN 10/12/19 Calcium Carb/Vitamin D3/Vit K1 [Calcium + D Soft Chewable Tab] 1 tab PO DAILY 10/12/19 Ferrous Gluconate 324 mg PO DAILY 10/12/19 Folic Acid 1 mg PO DAILY 10/12/19 Furosemide 40 mg PO BID 10/12/19 Hydralazine HCl 50 mg PO TID 10/12/19 Mirtazapine [Remeron] 15 mg PO BEDTIME PRN 10/12/19 Omeprazole [Prilosec] 40 mg PO BID 10/12/19 clonazePAM [Clonazepam] 1 mg PO BID PRN 10/12/19 traMADol HCL [Ultram*] 50 mg PO TIDP PRN #15 tab 10/13/19 Flecainide [Tambocor*] 50 mg PO Q12H 05/21/20 Review of Systems General: As per HPI Eyes: Unremarkable ENT: Unremarkable Respiratory: Shortness of Breath, As per HPI Cardiovascular: Unremarkable Gastrointestinal: Unremarkable Genitourinary: Unremarkable Musculoskeletal: Unremarkable Integumentary: Unremarkable Neurological: Confusion, As per HPI Lymphatics: Unremarkable <Bashir Rey - Last Filed: 05/20/20 20:25> Physical Examination - Vital Signs Temperature: 98.1 F Blood Pressure: 113/69 Pulse: 111 Respirations: 26 Pulse Ox (%): 97 (3L NC) - Physical Exam General: Alert, In no apparent distress, Oriented x2 HEENT: Atraumatic, Normocephalic, PERRLA, Mucous membr. moist/pink Neck: Supple, Other (Trachea midline) Respiratory: Diminished (Left lung), Expiratory wheezes, Inspiratory wheezes Cardiovascular: No edema, Normal pulses, Normal S1 S2 Capillary refill: <2 Seconds Gastrointestinal: Normal bowel sounds, Soft and benign, Non-distended Musculoskeletal: No clubbing, No swelling, No contractures, No erythema Integumentary: No breakdown, No significant lesion, No tenderness/swelling Neurological: Normal gait, Normal speech, Normal strength at 5/5 x4 extr, Normal tone - Studies Laboratory Data (last 24 hrs) 05/20/20 16:42: PT 13.9 H, INR 1.18 05/20/20 16:42: WBC 19.2 H, Hgb 10.1 L, Hct 32.2 L, Plt Count 281 05/20/20 16:42: Sodium 133 L, Potassium 4.6, BUN 33 H, Creatinine 1.83 H, Glucose 92, Magnesium 3.3 H D, Total Bilirubin 0.5, AST 22, ALT 21, Alkaline Phosphatase 62, Lipase 45 L <Bashir Rey - Last Filed: 05/20/20 20:25> Assessment and Plan - Plan Impression: Pneumonia likely bacterial: Confusion: Acute on chronic kidney disease: Anemia of chronic disease: Chronic hypoxic respiratory failure with history of COPD on home oxygen at 3 L nasal cannula: Chronic pancreatitis: Plan: Pneumonia likely bacterial: Patient is noted to have an elevated white cell count of 19.2. Will start IV Rocephin at 1 g q.day and IV azithromycin [address] of the chest shows a left lung pneumonia. Will order sputum culture. Confusion: Etiology unclear. states patient has had episodes like this in the past. Will order CT of the head to rule out any acute pathology. Likely related to hypoxia. Acute on chronic kidney disease: Patient's baseline in October of 2019 was 0.92. Was given a bolus of IV fluid 500 mL in the ED. Will monitor creatinine levels. Anemia of chronic disease: Hemoglobin of 10.1 with a hematocrit of 32.2 on ER lab work. Continue to monitor. No need for transfusion at this time. Chronic hypoxic respiratory failure with history of COPD on home oxygen at 3 L nasal cannula: Patient uses 3 L nasal cannula at home. Has a states that he has had to increase her O2 requirements to 4-5 L at home. Believes patient has been hypoxic for the last 2 days which is likely the source of confusion. Will order breathing treatments as necessary and resume home medications once verifie d. Chronic pancreatitis: At baseline. Will resume all medications once verified. Discharge Plan: Home Plan to discharge in: Greater than 2 days - Advance Directives Does patient have a Living Will: Yes Does patient have a Durable POA for Healthcare: Yes - Code Status/Comfort Care Code Status Assessed: Yes Time Spent Managing Pts Care (In Minutes): 55 <Bashir Rey - Last Filed: 05/20/20 20:25> Physician Review Additional Text: plan of care reviewed with Bashir Rey, agree with management plan as outlined above <Oscar Morelos - Last Filed: 05/21/20 20:42>
--- NOTE | 2020-05-20 21:07 | RAD REPORT ---
EXAM DESCRIPTION: CT - Head Brain Wo Cont - 05/20/2020 8:56 pm CLINICAL HISTORY: CONFUSED Headache, drowsiness COMPARISON: HEAD BRAIN W O CONTRAST dated 12/20/2015; HEAD BRAIN W O CONTRAST dated 04/25/2009 TECHNIQUE: All CT scans are performed using dose optimization technique as appropriate and may inclu de automated exposure control or mA/KV adjustment according to patient size. FINDINGS: Mild residual intravascular contrast material seen from recent CT chest. This mildly limit s the examination. No intracranial hemorrhage, hydrocephalus or extra-axial fluid collection.Mild generalized brain atro phy.No areas of brain edema or evidence of midline shift. Trace right mastoid fluid. The paranasal sinuses and mastoids are otherwise clear. The calvarium is i ntact. IMPRESSION: No acute intracranial abnormality.
[2020-05-20] MEDS: NA CHLORIDE 0.9% 1,000 ML IV SCH (23:12)
[2020-05-20] MEDS: LORazepam 2 MG/ML VIAL IV PRN (23:12)
[2020-05-20 23:45] LABS: Urine Appearance CLEAR; Urine Bilirubin NEGATIVE (NEG); Urine Blood NEGATIVE (NEG); Urine Color YELLOW; Urine Glucose NEGATIVE (NEG); Urine Protein NEGATIVE (NEG); Urine Specific Gravity >=1.030 (1.005-1.030); Urine Urobilinogen 0.2 mg/dL (0.2-1.0); Urine pH 5.5 (5.0-7.0)
[2020-05-20 23:57] LABS: Urine Microscopic Reflex ORDER UMIC
[2020-05-21] MEDS: HEPARIN 5000 UNIT/ML 1 ML VIAL SQ SCH ×3 (00:30→17:00)
[2020-05-21 00:41] LABS: Urine Bacteria <20 /HPF (<20); Urine Culture Reflex Order REFLEXED; Urine RBC <5 /HPF (NONE SEEN)
[2020-05-21] MEDS: IPRATROPIUM BROM 0.5MG/2.5ML NEB SCH ×4 (01:50→20:50)
[2020-05-21] MEDS ORDERED: TRAMADOL HCL 50 MG TAB PO ONE (03:43)
[2020-05-21 06:25] LABS: Absolute Lymphocytes (CBC) 0.9 K/uL (0.7-4.9); Basophils % 0.5 % (0-1.3); Hematocrit 25.3 % (36.0-45.0); MPV 8.9 fL (7.6-11.3); RBC Red Blood Cell Count 3.06 M/uL (3.86-4.86)
[2020-05-21 06:27] LABS: Albumin 2.2 g/dL (3.4-5.0); Bilirubin Total 0.3 mg/dL (0.2-1.0); Potassium 4.2 mmol/L (3.5-5.1); Protein, Total 6.1 g/dL (6.4-8.2)
--- NOTE | 2020-05-21 07:55 | EKG ---
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
[2020-05-21] MEDS: CEFTRIAXONE/SWI 1gm 1 GM/10 ML SYR IV SCH (08:12)
[2020-05-21] MEDS: NA CHLORIDE 0.9% 1,000 ML IV SCH ×2 (08:13→17:01)
[2020-05-21] MEDS: LORazepam 2 MG/ML VIAL IV PRN ×2 (08:13→12:25)
[2020-05-21] MEDS ORDERED: CEFTRIAXONE 1 GM/NS 50 ML 1 GM/50 ML BAG IV SCH (09:00)
[2020-05-21] MEDS: AZITHROMYCIN IV 500 MG in NA CHLORIDE 0.9% 250 ML IVPB SCH (09:11)
[2020-05-21] MEDS ORDERED: clonazePAM 0.5 MG TAB PO PRN (14:18)
[2020-05-21] MEDS ORDERED: ACETAMINOPHEN 650 MG PO PRN (14:18)
[2020-05-21] MEDS ORDERED: ALBUTEROL INHALER 60 PUFF/8 GM IH PRN (14:18)
[2020-05-21] MEDS ORDERED: ACETAMINOPHEN 325 MG TABLET PO PRN (14:39)
[2020-05-21] MEDS: PROTEASE PO SCH ×2 (17:00→21:00)
[2020-05-21] MEDS: LIPASE PO SCH ×2 (17:00→21:00)
[2020-05-21] MEDS: AMYLASE PO SCH ×2 (17:00→21:00)
[2020-05-21] MEDS: POTASSIUM CL SA 10 MEQ TAB PO SCH (20:29)
[2020-05-21] MEDS: TRAMADOL HCL 50 MG TAB PO PRN (20:29)
[2020-05-21] MEDS: SERTRALINE HCL 100 MG TAB PO SCH (20:29)
[2020-05-21] MEDS: MIRTAZAPINE 15 MG TAB PO PRN (20:30)
[2020-05-21] MEDS: HYDRALAZINE HCL 25 MG TABLET PO SCH (20:34)
--- NOTE | 2020-05-21 20:46 | P.PN ---
Subjective Date of Service: 05/21/20 Chief Complaint: Pneumonia slightly improving, continues with SOB, cough. more alert and oriented this morning. no chest pain, no abdominal pain, no dizziness Review of Systems 10-point ROS is otherwise unremarkable Physical Examination - Vital Signs Temperature: 98.4 F Blood Pressure: 157/64 Pulse: 109 Respirations: 18 Pulse Ox (%): 98 - Physical Exam General: Alert, In no apparent distress, Oriented x3 HEENT: EOMI, Sclerae nonicteric Neck: No LAD Respiratory: Diminished, Crackles/rales Cardiovascular: Regular rate/rhythm, Normal S1 S2 Gastrointestinal: Soft and benign, Non-distended, No tenderness Musculoskeletal: No erythema, No tenderness Integumentary: No rashes, No breakdown Neurological: Normal speech, Normal affect Assessment & Plan Physician Review Additional Text: Pneumonia likely bacterial: Confusion: Acute on chronic kidney disease: Anemia of chronic disease: Chronic hypoxic respiratory failure with history of COPD on home oxygen at 3 L nasal cannula: Chronic pancreatitis: Plan: Pneumonia likely bacterial: -continue rocephin and azithro for LL pneuomnia -O2 as needed Chronic hypoxic respiratory failure with history of COPD on home oxygen at 3 L nasal cannula: -Patient uses 3 L nasal cannula at home. Has a states that he has had to increase her O2 requirements to 4-5 L at home. -no significant wheezing on exam, worsening hypoxia likely due to pneumonia -continue home meds Confusion: -pt with some level of dementia per , CT negative, likely exacerbated in setting of sepsis Acute on chronic kidney disease: Patient's baseline in October of 2019 was 0.92. Was given a bolus of IV fluid 500 mL in the ED. Will monitor creatinine levels. Anemia of chronic disease: Hemoglobin of 10.1 with a hematocrit of 32.2 on ER lab work. Continue to monitor. No need for transfusion at this time. Chronic pancreatitis: At baseline. resume home meds dispo: anticipate dc home in 48-72 hrs Time Spent Managing Pts Care (In Minutes): 35
[2020-05-21] MEDS ORDERED: HOME MED 1 EA UNK (Potassium Chloride [Klor-Con M10] 10 MEQ) PO SCH (21:00)
[2020-05-21] MEDS ORDERED: HOME MED 1 EA UNK (Hydralazine Hcl [Hydralazine Hcl] 50 MG) PO SCH (21:00)
[2020-05-21] MEDS: HOME MED 1 EA UNK (Omeprazole [Prilosec] 40 MG) PO SCH (21:00)
[2020-05-21] MEDS: DILTIAZEM HCL 90 MG PO SCH (21:00)
[2020-05-22] MEDS: HEPARIN 5000 UNIT/ML 1 ML VIAL SQ SCH ×4 (00:41→19:40)
[2020-05-22] MEDS: IPRATROPIUM BROM 0.5MG/2.5ML NEB SCH ×5 (02:10→20:30)
[2020-05-22 05:55] LABS: Hematocrit 24.4 % (36.0-45.0); MPV 8.7 fL (7.6-11.3); RBC Red Blood Cell Count 2.93 M/uL (3.86-4.86)
[2020-05-22 06:04] LABS: Potassium 4.4 mmol/L (3.5-5.1)
[2020-05-22] MEDS: DILTIAZEM HCL 90 MG PO SCH ×2 (09:00→19:40)
[2020-05-22] MEDS: AMYLASE PO SCH ×4 (09:00→19:41)
[2020-05-22] MEDS: CALCIUM CARB PO SCH (09:00)
[2020-05-22] MEDS: VITAMIN D3 PO SCH (09:00)
[2020-05-22] MEDS: HOME MED 1 EA UNK (Omeprazole [Prilosec] 40 MG) PO SCH ×2 (09:00→19:41)
[2020-05-22] MEDS: VIT K1 PO SCH (09:00)
[2020-05-22] MEDS ORDERED: FERROUS GLUCONATE 324 MG PO SCH (09:00)
[2020-05-22] MEDS: LIPASE PO SCH ×4 (09:00→19:41)
[2020-05-22] MEDS: PROTEASE PO SCH ×4 (09:00→19:41)
[2020-05-22] MEDS: HOME MED 1 EA UNK (Umeclidinium Brm/Vilanterol Tr [Anoro Ellipta 62.5-25 Mcg Inh] 1 PUFF) IH SCH (09:00)
[2020-05-22] MEDS: [UNRECOGNIZED DRUG - OTHER] PO SCH (09:00)
[2020-05-22] MEDS: CEFTRIAXONE/SWI 1gm 1 GM/10 ML SYR IV SCH (09:54)
[2020-05-22] MEDS: AZITHROMYCIN IV 500 MG in NA CHLORIDE 0.9% 250 ML IVPB SCH (09:54)
[2020-05-22] MEDS: SERTRALINE HCL 100 MG TAB PO SCH ×2 (09:55→20:22)
[2020-05-22] MEDS: HYDRALAZINE HCL 25 MG TABLET PO SCH ×4 (09:55→20:58)
[2020-05-22] MEDS: FERROUS GLUCONATE 324 MG TAB PO SCH (09:55)
[2020-05-22] MEDS: FOLIC ACID 1 MG TABLET PO SCH (09:55)
[2020-05-22] MEDS: POTASSIUM CL SA 10 MEQ TAB PO SCH ×2 (09:55→20:22)
--- NOTE | 2020-05-22 10:17 | P.PN ---
Subjective Date of Service: 05/22/20 Chief Complaint: Pneumonia Subjective: No new changes, Improving Review of Systems 10-point ROS is otherwise unremarkable Physical Examination - Vital Signs Temperature: 97.8 F Blood Pressure: 147/58 Pulse: 99 Respirations: 19 Pulse Ox (%): 99 - Physical Exam General: Alert, In no apparent distress, Oriented x3 HEENT: Atraumatic, Normocephalic Neck: Supple Respiratory: Diminished, Crackles/rales, Expiratory wheezes Cardiovascular: Regular rate/rhythm, Normal S1 S2 Capillary refill: <2 Seconds Gastrointestinal: Soft and benign, W/out hepatosplenomegaly Musculoskeletal: No clubbing, No swelling, Tenderness, Other (Pain in the left shoulder and left wrist ) Integumentary: No rashes Neurological: Normal speech, Normal strength at 5/5 x4 extr Lymphatics: No axilla or inguinal lymphadenopathy Assessment & Plan Physician Review Additional Text: Pneumonia likely bacterial: Confusion: Acute on chronic kidney disease: Anemia of chronic disease: Chronic hypoxic respiratory failure with history of COPD on home oxygen at 3 L nasal cannula: Chronic pancreatitis: Plan: Left Lower Lobe Pneumonia likely bacterial: Continue rocephin and azithro for LL pneuomnia Chronic hypoxic respiratory failure with history of COPD on home oxygen at 3 L nasal cannula: Patient uses 3 L nasal cannula at home. Has a states that he has had to increase her O2 requirements to 4-5 L at home. no significant wheezing on exam, worsening hypoxia likely due to pneumonia continue home meds Pulmonology consult Confusion: -pt with some level of dementia per , CT negative, likely exacerbated in setting of sepsis Acute on chronic kidney disease: Will monitor creatinine levels. Anemia of chronic disease: Hemoglobin of 10.1 with a hematocrit of 32.2 Continue to monitor. Chronic pancreatitis: At baseline. resume home meds Left AC joint arthritis Pain control PT evaluate Time Spent Managing Pts Care (In Minutes): 43
[2020-05-22] MEDS: TRAMADOL HCL 50 MG TAB PO PRN ×2 (10:28→20:22)
--- NOTE | 2020-05-22 11:54 | P.CNS ---
Date of Consult: 05/22/20 Reason for Consult: Pneumonia left arm pain Chief Complaint: Pneumonia History of Present Illness: Patient is 74 years of age admitted to the hospital complaining of pain in her left shoulder apparently she had a fall 2 weeks ago came here to the emergency room and was extensively x-ray discharge pain has gotten worse she is unable to make a fist lift her arm. Patient has a COPD is following up with a mail manager in [place] compliant with her medication. She denies any fever chills cough patient has COPD and has dyspnea on exertion Allergies buspirone HCl [From BuSpar] Adverse Reaction (Verified 09/20/12 16:23) hallucinate pantoprazole [From Protonix] Adverse Reaction (Verified 03/11/17 21:58) Dizziness myacin Adverse Reaction (Uncoded 03/11/17 21:58) severe dehydration mycin Adverse Reaction (Uncoded 09/20/12 16:23) severe dehydration Home Medications: Albuterol Sulfate [Proair Hfa] 2 puff IH QID PRN 04/03/16 Diltiazem HCl [Diltiazem 24Hr Cd] 90 mg PO BID 04/03/16 Sertraline HCl 100 mg PO BID 04/03/16 Umeclidinium Brm/Vilanterol Tr [Anoro Ellipta 62.5-25 Mcg INH] 1 puff IH DAILY 04/03/16 Lipase/Protease/Amylase [[place] Dr 36,000 Units Capsule] 1 tab PO QID 03/11/17 Potassium Chloride [Klor-Con M10] 10 meq PO BID 03/11/17 Acetaminophen [Tylenol Arthritis] 650 mg PO Q8HP PRN 10/12/19 Calcium Carb/Vitamin D3/Vit K1 [Calcium + D Soft Chewable Tab] 1 tab PO DAILY 10/12/19 Ferrous Gluconate 324 mg PO DAILY 10/12/19 Folic Acid 1 mg PO DAILY 10/12/19 Furosemide 40 mg PO BID 10/12/19 Hydralazine HCl 50 mg PO TID 10/12/19 Mirtazapine [Remeron] 15 mg PO BEDTIME PRN 10/12/19 Omeprazole [Prilosec] 40 mg PO BID 10/12/19 clonazePAM [Clonazepam] 1 mg PO BID PRN 10/12/19 traMADol HCL [Ultram*] 50 mg PO TIDP PRN #15 tab 10/13/19 Flecainide [Tambocor*] 50 mg PO Q12H 05/21/20 - Past Medical/Surgical History Diabetic: No -: GERD -: HTN, left lower lobe lung cancer stage IA resected in 2016 at [facility] -: COPD -: Fatty liver -: History of pancreatic dysfunction -: Migraines -: IBS/dumping syndrome -: Kidney stones with ureteral stent -: Endometriosis -: History of hepatitis -: ENDOMETRIOSIS -: HEPATITIS B -: Tonsillectomy -: Cholecystectomy -: D&C -: CATARACT REMOVAL -: TUMMY TUCK -: Tubal ligation -: JEJUNAL BYPASS -: Left lobe lobectomy Psychosocial/ Personal History: The patient is of 51 years. She has 1 child. She does not work. - Family History Mother Medical History: Lung disease Notes: COPD Father Medical History: Lung disease Notes: COPD - Social History Smoking Status: Never smoker Alcohol use: No CD- Drugs: No Caffeine use: No Place of Residence: Home Review of Systems General: Weakness Respiratory: Shortness of Breath Musculoskeletal: Arm Pain Neurological: Weakness Physical Examination Temp Pulse Resp BP Pulse Ox 97.8 F 99 H 19 147/58 H 99 05/22/20 10:17 05/22/20 10:17 05/22/20 10:28 05/22/20 10:17 05/22/20 10:28 General: Alert, Oriented x3, Moderate distress Respiratory: Expiratory wheezes Cardiovascular: No edema, Regular rate/rhythm Gastrointestinal: Normal bowel sounds, Soft and benign Musculoskeletal: No clubbing, Other (Patient has severe pain in her left arm unable to even touch she is unable to make a fist minimal abduction) Integumentary: No rashes, No breakdown - Problems (1) LLL pneumonia Onset Date: 03/12/17 Current Visit: No Status: Acute Plan: Patient is 74 years of age admitted with a fall 2 weeks ago she came to the emergency room did not show any fractures she has pain has become progressively worse with her left arm he may have a rotator cuff tear. She denies any fever chills productive cough patient does have an infiltrate in the left lower lobe history of COPD and has a lung cancer this resected as been a change in her CT scan white count is elevated chemistries reviewed change to p.o. levofloxacin add bronchodilators orthopedic Consul to saturation stable Qualifiers: Pneumonia type: due to unspecified organism Qualified Code(s): J18.9 - Pneumonia, unspecified organism (2) Pneumonia Current Visit: No Status: Acute Qualifiers: Pneumonia type: due to unspecified organism Laterality: left Lung location: lower lobe of lung
[2020-05-22] MEDS: levoFLOXacin 500 MG TAB PO SCH (13:04)
[2020-05-22] MEDS: METHYLPREDNISOLONE 125 MG INJ IV SCH ×2 (13:04→20:23)
[2020-05-22] MEDS ORDERED: HYDROCODONE/APAP 7.5/325 MG TAB PO PRN (13:18)
[2020-05-22] MEDS ORDERED: LACTULOSE 20 GM/30 ML UCUP PO ONE (15:00)
[2020-05-22] MEDS: DOCUSATE NA 100 MG CAP PO SCH (20:21)
[2020-05-22] MEDS: MIRTAZAPINE 15 MG TAB PO PRN (20:22)
[2020-05-22] MEDS: ARFORMOTEROL TARTRATE 15 MCG/2 ML VIAL.NEB NEB SCH (20:30)
[2020-05-23] MEDS: IPRATROPIUM BROM 0.5MG/2.5ML NEB SCH ×3 (01:15→14:43)
[2020-05-23 06:47] VITALS: BMI 30.4
[2020-05-23] MEDS: ARFORMOTEROL TARTRATE 15 MCG/2 ML VIAL.NEB NEB SCH (07:54)
[2020-05-23 07:59] LABS: Absolute Lymphocytes (CBC) 0.3 K/uL (0.7-4.9); Basophils % 1.1 % (0-1.3); Lymphocytes % 10.3 % (15.3-44.8); MPV 9.2 fL (7.6-11.3)
[2020-05-23 08:01] LABS: Potassium 4.6 mmol/L (3.5-5.1)
[2020-05-23] MEDS: METHYLPREDNISOLONE 125 MG INJ IV SCH (08:51)
[2020-05-23] MEDS: DOCUSATE NA 100 MG CAP PO SCH ×2 (08:52→09:00)
[2020-05-23] MEDS: FOLIC ACID 1 MG TABLET PO SCH (08:52)
[2020-05-23] MEDS: POTASSIUM CL SA 10 MEQ TAB PO SCH (08:52)
[2020-05-23] MEDS: levoFLOXacin 500 MG TAB PO SCH (08:52)
[2020-05-23] MEDS: FERROUS GLUCONATE 324 MG TAB PO SCH (08:52)
[2020-05-23] MEDS: HYDRALAZINE HCL 25 MG TABLET PO SCH (08:52)
[2020-05-23] MEDS: SERTRALINE HCL 100 MG TAB PO SCH (08:52)
[2020-05-23] MEDS: VIT K1 PO SCH (09:00)
[2020-05-23] MEDS: HOME MED 1 EA UNK (Umeclidinium Brm/Vilanterol Tr [Anoro Ellipta 62.5-25 Mcg Inh] 1 PUFF) IH SCH (09:00)
[2020-05-23] MEDS: CALCIUM CARB PO SCH (09:00)
[2020-05-23] MEDS: HOME MED 1 EA UNK (Omeprazole [Prilosec] 40 MG) PO SCH (09:00)
[2020-05-23] MEDS: AMYLASE PO SCH (09:00)
[2020-05-23] MEDS: LIPASE PO SCH (09:00)
[2020-05-23] MEDS: VITAMIN D3 PO SCH (09:00)
[2020-05-23] MEDS: PROTEASE PO SCH (09:00)
[2020-05-23] MEDS: [UNRECOGNIZED DRUG - OTHER] PO SCH (09:00)
[2020-05-23] MEDS: DILTIAZEM HCL 90 MG PO SCH (09:00)
[2020-05-23 09:54] LABS: Blood Morphology Comment NOT SEEN (NOT SEEN); Platelet Estimate ADEQ; Urine White Blood Cell Casts OK
--- NOTE | 2020-05-23 10:39 | P.DS ---
Admission Date: 05/20/20 Discharge Date: 05/23/20 Disposition: ROUTINE DISCHARGE Discharge Condition: GOOD Reason for Admission: Pneumonia Brief History of Present Illness: 74-year-old female with past medical history of COPD, lung cancer status post resection, hepatitis-B, kidney stones, hypertension, and chronic pancreas problems presents to the emergency room complaining of breathing difficulty. Patient states the symptoms started 2 days ago and have progressively worsened. is bedside. states that the patient is also slightly confused which is not her baseline. In the emergency room patient was found to be hypoxic with O2 saturations in the low 80s. She is on home oxygen at 3 L nasal cannula. CTA of the chest shows a moderate left lung pneumonia. Blood work in the ER shows a white cell count of 19.2, hemoglobin of 10.1, hematocrit of 32.2, a creatinine of 1.83. Patient's baseline in October of 2019 was 0.92. Also pro calloused lightly elevated at 1.34. She is also requiring more oxygen and currently on 4 L nasal cannula to maintain oxygen saturations above 92%. On physical exam patient is alert and oriented x2. She is pleasant and cooperative but slightly confused. thinks it is likely due to her low oxygen levels. states that patient has had episodes like this in the past. Patient will be admitted and further evaluated. Hospital Course: Pneumonia likely bacterial: Confusion: Acute on chronic kidney disease: Anemia of chronic disease: Chronic hypoxic respiratory failure with history of COPD on home oxygen at 3 L nasal cannula: Chronic pancreatitis: Course The patient was started on IV antibiotics along with oxygen supplementation She was also started with the bronchodilators. pulmonology was consulted. Recommended continuing steroids along with bronchodilators. Monitored renal parameters and monitored CBC daily Patient also had multiple falls and x-ray was for suggestive of Left AC joint arthritis Treated with Pain control and PT evaluate Patient wanted to go home and is being discharged home today in a stable condition with advice to follow up with pulmonology in 1 week and also with orthopedics in 1-2 weeks Vital Signs/Physical Exam: Temp Pulse Resp BP Pulse Ox 97.1 F 96 H 18 154/65 H 100 05/23/20 08:00 05/23/20 08:00 05/23/20 08:00 05/23/20 08:00 05/23/20 08:00 General: Alert, In no apparent distress HEENT: Atraumatic, Normocephalic Neck: Supple Respiratory: Diminished Cardiovascular: Regular rate/rhythm, Normal S1 S2 Capillary refill: <2 Seconds Gastrointestinal: Soft and benign, W/out hepatosplenomegaly Musculoskeletal: No clubbing Integumentary: No rashes Neurological: Normal speech, Normal strength at 5/5 x4 extr Lymphatics: No axilla or inguinal lymphadenopathy Laboratory Data at Discharge: WBC 2.5 K/uL (4.3-10.9) L D 05/23/20 07:35 Hgb 8.7 g/dL (12.0-15.0) L 05/23/20 07:35 Hct 27.0 % (36.0-45.0) L 05/23/20 07:35 Plt Count 160 K/uL (152-406) 05/23/20 07:35 PT 13.9 SECONDS (9.5-12.5) H 05/20/20 16:42 INR 1.18 05/20/20 16:42 Sodium 139 mmol/L (136-145) 05/23/20 07:35 Potassium 4.6 mmol/L (3.5-5.1) 05/23/20 07:35 BUN 13 mg/dL (7-18) 05/23/20 07:35 Creatinine 0.92 mg/dL (0.55-1.3) 05/23/20 07:35 Glucose 188 mg/dL (74-106) H 05/23/20 07:35 Magnesium 3.0 mg/dL (1.8-2.4) H 05/21/20 06:01 Total Bilirubin 0.3 mg/dL (0.2-1.0) 05/21/20 06:01 AST 27 U/L (15-37) 05/21/20 06:01 ALT 13 U/L (12-78) 05/21/20 06:01 Alkaline Phosphatase 54 U/L (45-117) 05/21/20 06:01 Lipase 45 U/L (73-393) L 05/20/20 16:42 Home Medications: Albuterol Sulfate [Proair Hfa] 2 puff IH QID PRN 04/03/16 Diltiazem HCl [Diltiazem 24Hr Cd] 90 mg PO BID 04/03/16 Sertraline HCl 100 mg PO BID 04/03/16 Umeclidinium Brm/Vilanterol Tr [Anoro Ellipta 62.5-25 Mcg INH] 1 puff IH DAILY 04/03/16 Lipase/Protease/Amylase [Hugo Melendez 36,000 Units Capsule] 1 tab PO QID 03/11/17 Potassium Chloride [Klor-Con M10] 10 meq PO BID 03/11/17 Acetaminophen [Tylenol Arthritis] 650 mg PO Q8HP PRN 10/12/19 Calcium Carb/Vitamin D3/Vit K1 [Calcium + D Soft Chewable Tab] 1 tab PO DAILY 10/12/19 Ferrous Gluconate 324 mg PO DAILY 10/12/19 Folic Acid 1 mg PO DAILY 10/12/19 Furosemide 40 mg PO BID 10/12/19 Hydralazine HCl 50 mg PO TID 10/12/19 Mirtazapine [Remeron] 15 mg PO BEDTIME PRN 10/12/19 Omeprazole [Prilosec] 40 mg PO BID 10/12/19 clonazePAM [Clonazepam] 1 mg PO BID PRN 10/12/19 traMADol HCL [Ultram*] 50 mg PO TIDP PRN #15 tab 10/13/19 Flecainide [Tambocor*] 50 mg PO Q12H 05/21/20 Arformoterol Tartrate [Brovana] 15 mcg NEB BIDRESP #1 vial.neb 05/23/20 Codeine/APAP [Tylenol W/Codeine #3 tab] 1 tab PO Q6HP PRN #14 tab 05/23/20 levoFLOXacin [Levaquin*] 500 mg PO DAILY #7 tab 05/23/20 methylPREDNISolone [Methylpred Dp] 4 mg PO DIRECTED #1 tab.ds.pk 05/23/20 New Medications: Arformoterol Tartrate [Brovana] 15 mcg NEB BIDRESP #1 vial.neb levoFLOXacin [Levaquin*] 500 mg PO DAILY #7 tab methylPREDNISolone [Methylpred Dp] 4 mg PO DIRECTED #1 tab.ds.pk Codeine/APAP [Tylenol W/Codeine #3 tab] 1 tab PO Q6HP PRN #14 tab PRN Reason: Pain Diet: [facility] Followup: Donny Carreno MD [ACTIVE - CAN ADMIT] - Time spent managing pt's care (in minutes): 42
[2020-05-23 14:40] VITALS: BP 126/54; TEMP 97.6
[2020-05-23 16:35] VITALS: O2SAT 99
== END 2020-05-23 15:00 | disposition home health service (06) | DRG 194 ==
LOC: ER 15:50 → ERHOLD 20:17 → 2ND 21:31
PROVIDERS: ADMIT Hospitalist; ATTEND Family Medicine
DX: J15.9 Unspecified bacterial pneumonia (principal); N17.9 Acute kidney failure, unspecified; J96.11 Chronic respiratory failure with hypoxia; K86.1 Other chronic pancreatitis; J44.9 Chronic obstructive pulmonary disease, unspecified; I10 Essential (primary) hypertension; K21.9 Gastro-esophageal reflux disease without esophagitis; I12.9 Hypertensive chronic kidney disease with stage 1 through stage 4 chronic kidney disease, or unspecified chronic kidney disease; N18.9 Chronic kidney disease, unspecified; D63.8 Anemia in other chronic diseases classified elsewhere; Z99.81 Dependence on supplemental oxygen; Z11.59 Encounter for screening for other viral diseases; Z79.51 Long term (current) use of inhaled steroids
CPT/HCPCS: 36415; 51702; 70450; 71045; 71275; 80048; 80053; 80076; 81003; 81015; 82140; 82805; 83605; 83690; 83735; 83880; 84145; 84484; 85025; 85027; 85610; 87086; 87088; 93005; 94640; 96365; 96366; 96375; 99285; J0456; J0696; J1644; J1940; J2930; J7030; J7040; J7050; J7605; Q9967; U0003

== ENCOUNTER 2021-05-15 16:42 | Emergency (ER) | payer OTHER ==
--- OUTSIDE RECORDS SUMMARY | 2021-05-15 16:47 | XMS REPORT | Continuity of Care Document ---
:1945 Author Organization [facility] t Address [address] [place] [address] Care Team Providers Name Role Phone Prezas Primary Care Physician Jordana HOLDER Attending Clinician Unavailable Davey Faustin MD Attending Clinician Doctor Unassigned, Name Attending Clinician Unavailable Clare THORPE Attending Clinician Unavailable Toño Santana MD Attending Clinician Deirdre RODRIGUEZ Attending Clinician Sb Chen MD Attending Clinician Barbi Perkins MD Attending Clinician Staci RODRIGUEZ Attending Clinician MD Barbi PERKINS Attending Clinician Unavailable Kirk Agustin MD Attending Clinician Ermias ROSS Attending Clinician MD DEIRDRE Attending Clinician Unavailable Karlos Medel MD Attending Clinician Rafa Izaguirre MD Attending Clinician Vickey Attending Clinician Unavailable MD Karlos MEDEL Attending Clinician Unavailable Prabhjot THORPE Attending Clinician Unavailable Jania Adams MD Attending Clinician Ra Attending Clinician Unavailable TRACEY Attending Clinician Unavailable MD JANIA ADAMS Attending Clinician Unavailable ZE Attending Clinician Unavailable CATIE Attending Clinician Unavailable ANATOLIY Attending Clinician Unavailable CHUY Attending Clinician Unavailable MADDIE Admitting Clinician Unavailable MD Barbi PERKINS Admitting Clinician Unavailable DEIRDRE Admitting Clinician Unavailable MD DEIRDRE Admitting Clinician Unavailable LIZY Admitting Clinician Unavailable MD Karlos MEDEL Admitting Clinician Unavailable TRACEY Admitting Clinician Unavailable GOOD Admitting Clinician Unavailable CHUY Admitting Clinician Unavailable Payers Payer Name Policy Type Policy Effective Date Expiration Date Sour ce Number MEDICAREMEDICARE PART [id number] 2010 [facility] A AND 00:00:00 [facility] [id number] 2010[place] TRICARET[facility] FOR [id number] 2015 Method ist LIFE MCR 00:00:00 [facility] [id number]/ 24/2015-PresentMilita ry Problems Condition Condition Condition Status Onset Resolution Last Treating Co mments Source Name Details Category Date Date Treatment Clinician Date Lumbar Lumbar Disease Active 2019-09 [facility] stenosis stenosis [address] [facility] 00:00: Hospita 00 l Depression Depression Disease Active 2020-0 M ethodi with with [address] suicidal suicidal 00:00: Hospit a ideation ideation 00 l Salmonella Salmonella Disease Active 2020-0 M ethodi gastroente gastroente 10-23 st ritis ritis 00:00: Hospita 00 l BIBI (acute BIBI (acute Disease Active 2020-0 M ethodi kidney kidney 10-22 st injury) injury) 00:00: Hospita 00 l CKD CKD Disease Active 2020-0 [facility] (chronic (chronic 10-22 st kidney kidney 00:00: Hospita disease) disease) 00 l stage 3, stage 3, GFR 30-59 GFR 30-59 ml/min ml/min COPD COPD Disease Active 2020-0 [facility] (chronic (chronic 10-22 st obstructiv obstructiv 00:00: Ho spita e e 00 l pulmonary pulmonary disease) disease) Essential Essential Disease Active 2020-0 [facility] hypertensi hypertensi 10-22 st on on 00:00: Hospita 00 l FERREIRA FERREIRA Disease Active 2020-0 [facility] (nonalcoho (nonalcoho 10-22 st lic lic 00:00: Hospita steatohepa steatohepa 00 l titis) samantha) Physical Physical Disease Active Metho di deconditio deconditio 10-22 nimo nimo 00:00: Hospita 00 l Osteoarthr Osteoarthr Disease Active M ethodi itis itis 10-22 00:00: Hospita 00 l 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 l lung lung Shortness Shortness Disease Active Met [facility]odi of breath of breath 10-22 00:00: Hospita 00 l Gastroente Gastroente Disease Active M ethodi ritis ritis 10-22 00:00: Hospita 00 l Anemia of Anemia of Disease Active [facility] chronic chronic 10-22 disease disease 00:00: Hospita 00 l H/O: GI H/O: GI Disease Active [facility] bleed bleed 10-22 00:00: Hospita 00 l 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 Added automatic ally from request for surgery [id number] Chest pain Chest pain Disease Active 2018-09 Overview : [facility]i [address] 00:00: g of this Hospita 00 note l might be different from the original. Added automatic ally from request for surgery [id number] COPD with COPD with Disease Active Met hodi acute acute 03-10 st exacerbati exacerbati 00:00: Ho spita on on 00 l Gastrointe Gastrointe Disease Active Overview : Methodi stinal stinal 03-[address] hemorrhage hemorrhage 00:00: g of this Hospita 00 note l might be different from the original. 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 03-28 st hyroidism hyroidism 00:00: Hosp radha 00 l Encounter Encounter Disease Active 2016-09 Met [facility]odi for for 09-28 follow-up follow-up 00:00: Hosp radha surveillan surveillan 00 l ce of lung ce of lung cancer cancer Renal Renal Disease Active [facility] stones stones 04-23 st 00:00: Hospita 00 l Nausea Nausea Disease Active [facility] 00:00: Hospita 00 l Lung Lung Disease Active [facility] nodule nodule 05-18 st 00:00: Hospita 00 l Fatty Fatty Disease Active Overview: [facility] liver liver 04-01 [facility]9 DX [facility] - disease, disease, 00:00: [facility] Medi dean nonalcohol nonalcohol 00 Ce nter ic ic Hyperlipid Hyperlipid Disease Active [facility] em[facility] emia 04-01 [facility] HTN HTN Disease Active [facility] (hypertens (hypertens 04-01 Karrie kes - ion) ion) 00:00: Medical 00 Center Portal Portal Disease Active [facility] hypertensi hypertensi 04-01 Karrie kes - on on 00:00: Medical 00 Center Pedal Pedal Disease Active [facility] edema edema 04-01 [facility] Status Status Disease Active [facility] post post 04-01 [facility] - intestinal intestinal 00:00: Me dical bypass bypass 00 Center Abdominal Abdominal Disease Active [facility] pain pain 04-01 [facility] Center Abnormal Abnormal Disease Active [facility] liver liver 04-01 [facility] - function function 00:00: Medica l 00 Center Screening Screening Disease Active [facility] for for 04-01 [facility] - endocrine/ endocrine/ 00:00: Me dical metabolic/ metabolic/ 00 Ce nter immunity immunity disorders disorders Liver Liver Disease Active [facility] fibrosis fibrosis 04-01 - 00:00: Medical 00 Center Hypokalemi Hypokalemi Disease Active [facility] a 04-01 - 00:[facility]: Medical Center Depression Depression Disease Active [facility] 04-01 - [facility] Medical Center Decreased Decreased Disease Active [facility] appetite appetite 04-01 - 00:00: Medical 00 Center Allergies, Adverse Reactions, Alerts Allergy Allergy Status Severity Reaction(s) Onset Inactive Treating Comm ents Source Name Type Date Date Clinician Gabapent Propensi Active Hallucinatio 2019-09 Methodi in ty to ns 10-03 st adverse 00:00: Hospita reaction 00 l s to drug Tizanidi Propensi Active Hallucinatio 2019-09 Methodi ne ty to ns 09-24 st adverse 00:00: Hospita reaction 00 l s to drug Glycopyr Propensi Active Method i rolate-F ty to 01-31 st ormotero adverse 00:00: Hospita l reaction 00 l s to drug Sulfamet Propensi Active Other (See Psychiatr Methodi hoxazole ty to Comments) 04-[address] -Trimeth adverse 00:00: episode/S Hosp radha oprim reaction 00 erotonin l s to syndrom drug Erythrom Propensi Active GI All Method i ycin ty to Intolerance 04-[address] adverse 00:00: Hospita reaction 00 l s to drug Hydrocod Propensi Active Other (See Potential Methodi one ty to Comments) 04-[address] adverse 00:00: ic Hospita reaction 00 disorder l s to drug Oxybutyn Propensi Active Other (See Poss Me thodi in ty to Comments) 04-[address] adverse 00:00: ic Hospita reaction 00 episode/S l s to erotonin drug syndrome Aminogly Propensi Active GI Denies Method i cosides ty to Intolerance 05-[address] adverse 00:00: Hospita reaction 00 l s to drug Buspiron Propensi Active Hallucinatio Methodi e ty to ns 04-17 st adverse 00:00: Hospita reaction 00 l s to drug Pantopra Propensi Active Other (See dizziness Methodi zole ty to Comments) 04-17 st adverse 00:00: Hospita reaction 00 l s to drug Tetanus Propensi Active Rash [facility]i Vaccines ty to 04-17 st And adverse 00:00: Hospita Toxoid reaction 00 l s to drug Buspiron Propensi Active [facility] ty to 04-01 [facility] - adverse 00:00: Medical reaction 00 Center s Tetanus Propensi Active [facility] Vaccines ty to 04-01 [facility] - And adverse 00:00: Medical Toxoid reaction 00 Center s Family History Family Member Diagnosis Comments Start Date Stop Date Source Natural father Lung disease [facility] Natural father COPD [facility] Natural mother Stroke [facility] Natural mother COPD [facility] Natural mother Stroke [facility] Natural brother [facility] Maternal uncle Diabetes [facility] Paternal grandfather Liver disease [facility] Social History Social Habit Start Date Stop Date Quantity Comments Source Sex Assigned At [facility] Center Cigarettes smoked 2021-04-07 2021-04-07 [facility] current (pack per 00:00:00 00:00:00 Hospita l day) - Reported Cigarette 2021-04-07 2021-04-07 [facility]00 Hospital Tobacco use and 2021-04-07 2021-04-07 Never used [facility] exposure 00:00:00 00:00:00 Hospital Alcohol intake 2021-04-07 2021-04-07 Current [facility] 00:00:00 00:00:00 non-drinker of Hospital alcohol (finding) Tobacco Comment 2020-06-22 2020-06-22 ended up with [facility] ist 00:00:00 00:00:00 lung cancer Hospital stopped before surgery History of tobacco 2016-05-18 Current smoker [facility] use 00:00:00 Hospital Smoking Status Start Date Stop Date Source Former smoker 2021-04-07 00:00:00 2021-04-07 00:00:00 [facility] Current every day 2013-06-24 00:00:00 [facility] smoker Center Medications Ordered Filled Start Stop Current Ordering Indication Dosage Frequency Signature Comments Components Source Medication Medication Date Date Medication? Clinician (SIG) Name Name albuterol Yes 2{puff} Q4H Inhale 2 M ethodi (PROAIR 7-[address] HFA) 90 15:18: every 4 Hospita mcg/actuati 22 (four) l on inhaler hours as needed for wheezing. flecainide Yes 50mg Q.5D Take 50 mg M ethodi (TAMBOCOR) 7-[address] 50 MG 15:18: (two) Hospita tablet 22 times a l day. sertraline Yes 100mg QD Take 100 Me thodi (ZOLOFT) 7-[address] 100 MG 15:18: mouth Hospita tablet 22 daily. l mirtazapine Yes 15mg QD Take 15 mg [facility] (REMERON) 7-[address] 15 MG 15:18: nightly. Hospita tablet 22 l mirtazapine 2020- No 30mg QD Take 30 mg [facility] (REMERON) 7-15 07-[address] 30 MG 15:15: 00:00 nightly. Hospita tablet 43 :00 l lipase-prot Yes Take 1 Meth ajmes ease-amylas 7-[address] (CREON) 15:04: mouth Hospita 36,000-114, 21 three l 000- times 180,000 daily with unit meals and capsule,del snacks ayed release(DR/ EC) diltiazem Yes 90mg Q.5D Take 90 mg Me [facility] (CardIZEM) 7-[address] 90 MG 15:04: (two) Hospita tablet 21 times a l day. hydrALAZINE Yes 50mg Q.[id number] Take 50 mg [facility] (APRESOLINE 7-15 [id number] by mouth 3 st ) 50 MG 15:04: 3D (three) Hospita tablet 21 times a l day. cholecalcif Yes 1{tbl} Take 1 Me thodi daryl, 7-[address] vitamin D3, 15:04: mouth Hospi ta (VITAMIN 21 daily. l D3) 125 mcg (5,000 unit) tablet furosemide Yes 40mg Q.5D Take 40 mg M ethodi (LASIX) 40 7-[address] mg tablet 15:04: (two) Hospita 21 times a l day. traMADoL Yes 50mg Q6H Take 50 mg Met hodi (ULTRAM) 50 7-[address] mg tablet 15:04: every 6 Hospi ta 21 (six) l hours as needed for moderate pain. predniSONE Yes 10mg Q.5D Take 10 mg M ethodi (DELTASONE) 7-[address] 5 mg tablet 15:04: (two) Hospi ta 21 times a l day. cefdinir Yes 300mg QD Take 300 Meth james (OMNICEF) 7-[address] 300 MG 00:00: mouth Hospita capsule 00 daily. l roflumilast Yes 1{tbl} QD Take 1 Me thodi (Daliresp) 6-[address] 500 mcg 00:00: mouth Hospita tablet 00 daily. l PriLOSEC 2020- No 20mg Q.5D Take 1 Method i OTC 20 mg 6-02 07-03 tablet (20 st EC tablet 00:00: 04:59 mg total) Ho spita 00 :00 by mouth 2 l (two) times a day for 30 days. PriLOSEC 2020- No 20mg QD Take 1 Method i OTC 20 mg 6-02 06-02 tablet (20 st EC tablet 00:00: 00:00 mg total) Ho spita 00 :00 by mouth l daily for 30 days. predniSONE 2020- No 30mg QD Take 3 Meth james (DELTASONE) 5-26 06-[address] 10 mg 00:00: 04:59 (30 mg Hospita tablet 00 :00 total) by l mouth daily for 5 days. flecainide 2020- No 50mg Q.5D Take 50 mg [facility] (TAMBOCOR) 5-25 05-[address] 50 MG 22:21: 00:00 (two) Hospita tablet 33 :00 times a l day. Unknown mg methylPREDN 2020- No Use as Met hodi ISolone 5-25 05-[address] (MEDROL 22:21: 00:00 on package Hos kathie DOSEPAK) 4 33 :00 l mg tablet amoxicillin No Metho di /potassium 5 05-25 st clav 22:21: 00:00 Hospita (AUGMENTIN 33 :00 l ORAL) ferrous 2020- No 324mg QD Take 1 Method i gluconate 02-15 06-[address] (FERGON) 00:00: 04:59 (324 mg Hospi ta 324 MG 00 :00 total) by l tablet mouth daily with breakfast for 30 days. ipratropium 2020- No 3mL Take 3 mL Methodi -albuterol 02-[address] (DUO-NEB) 14:45: 00:00 nebulizati H ospita 0.5-2.5 38 :00 on as l mg/3 mL needed for nebulizer wheezing. spironolact 2020- No 50mg Q.5D Take 50 mg [facility] one 02-[address] (ALDACTONE) 14:43: 00:00 (two) Hosp radha 25 MG 08 :00 times a l tablet day. clonAZEPAM 2020- No 1mg Q.5D Take 1 mg M ethodi (KlonoPIN) 02-[address] 1 MG tablet 14:43: 00:00 (two) Hosp radha 08 :00 times a l day as needed for seizures. acetaminoph 2020- No Take by Me thodi en (TYLENOL 3-06 26-[address] 8 HOUR 17:43: 00:00 Hospita ORAL) 36 :00 l esomeprazol 2020- No TAKE 1 Met hodi e (NexIUM) -06 28- CAPSULE(20 st 20 MG 00:00: 00:00 MG) BY Hospita capsule 00 :00 MOUTH l DAILY esomeprazol 2020- No 20mg QD Take 1 Met hodi e (NexIUM) 3-10 03-[address] 20 MG 00:00: 00:00 (20 mg Hospita capsule 00 :00 total) by l mouth daily for 30 days. clonAZEPAM Yes 1mg Q.5D Take 1 mg Me thodi (KlonoPIN) 2-[address] 1 MG tablet 00:00: (two) Hospi ta 00 times a l day as needed. spironolact Yes 50mg QD Take 50 mg [facility] one 10-[address] (ALDACTONE) 00:00: daily. Hosp radha 50 MG 00 l tablet omeprazole No 40mg Take 40 mg [facility] (PriLOSEC) 10-[address] 40 MG 00:00: 00:00 Hospita capsule 00 :00 l lidocaine No 1{patch Apply 1 M ethodi (LIDODERM) 10-15 } patch st 5 % 00:00: 04:59 topically. Hospit a 00 :00 l ferrous 2019-09 TAKE 1 [facility] gluconate 10-28 TABLET(324 st (FERGON) 00:00: 00:00 MG) BY Hospit a 324 MG 00 :00 MOUTH l tablet DAILY WITH BREAKFAST ipratropium 2019-09 Yes 500ug Q.25D Take 500 Method[facility] (ATROVENT) 2-[address] 0.02 % 00:00: nebulizati Hospi ta nebulizer 00 on 4 l solution (four) times a day. gabapentin 2019-09 No 100mg Q.5D Take 1 Met hodi (NEURONTIN) 09-[address] 100 mg 00:00: 00:00 (100 mg Hospita capsule 00 :00 total) by l mouth 2 (two) times a day as needed (mild pain). tiZANidine 2019-09 No 2mg Q8H Take 1 Meth james (ZANAFLEX) 09-30 tablet (2 st 2 MG tablet 00:00: 05:59 mg total) Hospita 00 :00 by mouth l every 8 (eight) hours as needed for muscle spasms for up to 15 days. traMADoL 2019-09 No 43252 50mg Q6H Take 1 Metho di (ULTRAM) 50 09-30 tablet (50 s t mg tablet 00:00: 05:59 mg total) Ho spita 00 :00 by mouth l every 6 (six) hours as needed for moderate pain for up to 10 days .acute pain. omeprazole No 40mg Q.5D Take 40 mg [facility] (PriLOSEC) 06-22- by mouth 2 st 40 MG 15:23: 00:00 (two) Hospita capsule 16 :00 times a l day. budesonide 2019- No .5mg Q.5D Take 0.5 Me thodi (PULMICORT) 06-22-[address] 0.5 mg/2 mL 15:23: 00:00 nebulizati Hospita nebulizer 12 :00 on 2 (two) l solution times a day. lidocaine 2020- No 1{patch Apply 1 M ethodi (LIDODERM) 813 11-12 } patch st 5 % 00:00: 05:59 topically. Hospit a 00 :00 l budesonide Yes .5mg QD Take 0.5 Met hodi (PULMICORT) 8-[address] 0.5 mg/2 mL 00:00: nebulizati Hospita nebulizer 00 on daily. l solution calcium Yes 10mL Q24H Take 10 mL Meth james carb-mag 2-[address] hydrox-ralph 00:00: daily as Ho spita th (Mylanta 00 needed. l Tonight) 800-270-80 mg/10 mL suspension ferrous 2018-09- No 324mg QD Take 1 Method i gluconate 10-04 12-[address] (FERGON) 00:00: 00:00 (324 mg Hospi ta 324 MG 00 :00 total) by l tablet mouth daily with breakfast. sertraline No 100mg QD Take 1 Met hodi (ZOLOFT) 04-09-[address] 100 MG 00:00: 00:00 (100 mg Hospita tablet 00 :00 total) by l mouth every morning. folic acid 2020- No 1mg QD Take 1 mg M ethodi (FOLVITE) 1 03-26 05-[address] MG tablet 00:00: 00:00 daily. Hospi ta 00 :00 l ANORO Yes 1{puff} Inhale 1 Metho di ELLIPTA 6-[address] 62.5-25 00:00: daily. Hospita mcg/actuati 00 l on blister with device ALPRAZolam 2013-0 Yes 1mg Take [address] (XANAX) 1 -26 by mouth [facility] - MG tablet 11:33: every Medical 12 night as Center needed. diltiazem Yes 240mg QD Take [address] (CARDIZEM 9-26 mg by [facility] - CD) 240 MG 11:33: mouth Medica l 24 hr 12 daily. Center capsule potassium Yes 10meq QD Take [address] chloride 9-26 mEq by [facility] - (KLOR-CON) 11:33: mouth Medica l 10 MEQ CR 12 daily. Center tablet BUDESONIDE/ Yes Inhale by C [facility] FORMOTEROL - mouth via Luke s - FUMARATE 11:33: inhaler. Medic al (SYMBICORT 11 [place] INH) sertraline 2020- No Method i (ZOLOFT) 02-[address] 100 MG 00:00: 00:00 Hospita tablet 00 :00 l amoxicillin amoxicillin No amoxicilli [place] [id number] 875 n 875 da mg-potassiu mg-potassiu mg-potassi [facility] m um al clavulanate clavulanate clavulanat Health 125 mg 125 mg e 125 mg Outreac tablet tablet tablet h Program Anoro Anoro No Anoro [place] Ellipta Ellipta Ellipta da 62.5 mcg-25 62.5 mcg-25 62.5 E piscop mcg/actuati mcg/actuati mcg-25 al on powder on powder mcg/actuat Health for for ion powder Outreac inhalation inhalation for h inhalation Program azithromyci azithromyci No azithromyc [place] n 250 mg n 250 mg in 250 mg da tablet tablet tablet [facility] Program benzonatate benzonatate No benzonatat [place] 200 mg 200 mg e 200 mg da capsule capsule capsule [facility] al [facility] Outreac h Program Bevespi Bevespi No Bevespi [place] Aerosphere Aerosphere Aerosphere da 9 mcg-4.8 9 mcg-4.8 9 mcg-4.8 [facility] mcg HFA mcg HFA mcg HFA al aerosol aerosol aerosol Health inhaler inhaler inhaler Outrea c h Program bromphenira bromphenira No bromphenir [place] mine-pseudo mine-pseudo amine-pseu da ephedrine-D ephedrine-D doephedrin [facility] M 2 mg-30 M 2 mg-30 e-DM 2 al mg-10 mg/5 mg-10 mg/5 mg-30 He alth mL oral mL oral mg-10 mg/5 Out reac syrup syrup mL oral h syrup Program cephalexin cephalexin No cephalexin [place] 500 mg 500 mg 500 mg da capsule capsule capsule [facility] p al Health Outreac h Program Creon Creon No Creon [place] 36,000 36,000 36,000 da unit-114,00 unit-114,00 unit-114,0 [facility] 0 0 00 al unit-180,00 unit-180,00 unit-180,0 Health 0 unit 0 unit 00 unit Outreac capsule,del capsule,del capsule,de h ayed ayed layed Program release release release diltiazem diltiazem No diltiazem [place] CD 240 mg CD 240 mg CD 240 mg da capsule,ext capsule,ext capsule,ex [facility] ended ended tended al release 24 release 24 release 24 Health hr hr hr Outreac h Program doxycycline doxycycline No doxycyclin [place] hyclate 100 hyclate 100 e hyclate da mg capsule mg capsule 100 mg E piscop capsule al Health Outreac h Program doxycycline doxycycline No doxycyclin [place] monohydrate monohydrate e d a 100 mg 100 mg monohydrat Episc op capsule capsule e 100 mg al capsule Health Outreac h Program enalapril enalapril No enalapril [place] maleate 5 maleate 5 maleate 5 da mg tablet mg tablet mg tablet [facility] h Program folic acid folic acid No folic acid [place] 1 mg tablet 1 mg tablet 1 mg d a tablet [facility] Program ipratropium ipratropium No ipratropiu [place] -albuterol -albuterol m-albutero da 0.5 mg-3 0.5 mg-3 l 0.5 mg-3 E [facility] mg(2.5 mg mg(2.5 mg mg(2.5 mg al base)/3 mL base)/3 mL base)/3 mL Health nebulizatio nebulizatio nebulizati Outreac n soln n soln on soln h Program Klonopin Klonopin No 1 BID Klonopin [place] 0.5 mg 0.5 mg 0.5 mg da tablet Take tablet Take tablet [facility] 1 tablet 1 tablet Take 1 al twice a day twice a day tablet Health by oral by oral twice a Outrea c route as route as day by h needed for needed for oral route Program 15 days. 15 days. as needed for 15 days. levofloxaci levofloxaci No levofloxac [place] n 500 mg n 500 mg in 500 mg da tablet tablet tablet [facility] nm Health Outreac h Program levofloxaci levofloxaci No levofloxac [place] n 750 mg n 750 mg in 750 mg da tablet tablet tablet [facility] Outre[facility] h Program lidocaine 5 lidocaine 5 No lidocaine [place] % topical % topical 5 % da patch patch topical [facility] patch nm Health Outreac h Program methylpredn methylpredn No methylpred [place] isolone 4 isolone 4 nisolone 4 da mg tablets mg tablets mg tablets [facility] in a dose in a dose in a dose al pack pack pack Health Outreac h Program metoclopram metoclopram No metoclopra [place] wilson 10 mg wilson 10 mg mide 10 mg da tablet tablet tablet [facility] Health Outre[facility] h Program metronidazo metronidazo No metronidaz [place] le 500 mg le 500 mg ole 500 mg da tablet tablet tablet [facility] Outreac h Program ofloxacin ofloxacin No ofloxacin [place] 0.3 % ear 0.3 % ear 0.3 % ear da drops drops drops [facility] Health Outreac h Program omeprazole omeprazole No omeprazole [place] 40 mg 40 mg 40 mg da capsule,del capsule,del capsule,de [facility] ayed ayed layed al release release release Health Outreac h Program ondansetron ondansetron No ondansetro [place] HCl 4 mg HCl 4 mg n HCl 4 mg d a tablet tablet tablet [facility] Outre[facility] h Program potassium potassium No potassium [place] citrate ER citrate ER citrate ER da 10 mEq 10 mEq 10 mEq [facility] (1,080 mg) (1,080 mg) (1,080 mg) al tablet,exte tablet,exte tablet,ext Health nded nded ended Outreac release release release h Program potassium potassium No potassium [place] citrate-cit citrate-cit citrate-ci da ellie acid ellie acid tric acid [facility] 1,100 1,100 1,100 al mg-334 mg/5 mg-334 mg/5 mg-334 Health mL oral mL oral mg/5 mL Outrea c solution solution oral h solution Program prednisone prednisone No prednisone [place] 10 mg 10 mg 10 mg da tablet tablet tablet [facility] Outreac h Program ProAir HFA ProAir HFA No ProAir HFA [place] 90 90 90 da mcg/actuati mcg/actuati mcg/actuat [facility] on aerosol on aerosol ion al inhaler inhaler aerosol Health inhaler Outreac h Program alprazolam alprazolam No alprazolam [place] 0.25 mg 0.25 mg 0.25 mg da tablet tablet tablet [facility] Outre[facility] h Program ranitidine ranitidine No ranitidine [place] 150 mg 150 mg 150 mg da tablet tablet tablet [facility] Outreac h Program Remeron 15 Remeron 15 No .5 Q1D Remeron 15 [place] mg tablet mg tablet mg tablet da Take 0.5 Take 0.5 Take 0.5 Epi scop tablets tablets tablets al every day every day every day Health by oral by oral by oral Outrea c route at route at route at h bedtime for bedtime for bedtime Program 30 days. 30 days. for 30 days. Suprep Suprep No Suprep [place] Bowel Prep Bowel Prep Bowel Prep da Kit 17.5 Kit 17.5 Kit 17.5 Epi scop gram-3.13 gram-3.13 gram-3.13 al gram-1.6 gram-1.6 gram-1.6 Hea lth gram oral gram oral gram oral [facility] solution solution solution h Program Zoloft 100 Zoloft 100 No 1.5 Q1D Zoloft 100 [place] mg tablet mg tablet mg tablet da Take 1.5 Take 1.5 Take 1.5 Epi scop tablets tablets tablets al every day every day every day Health by oral by oral by oral Outrea c route route route h before before before Program meals for meals for meals for 30 days. 30 days. 30 days. alprazolam alprazolam No alprazolam [place] 0.5 mg 0.5 mg 0.5 mg da tablet tablet tablet [facility] h Program amoxicillin amoxicillin No amoxicilli [place] 250 250 n 250 da mg-potassiu mg-potassiu mg-potassi [facility] clavulanate clavulanate clavulanat Health 125 mg 125 mg e 125 mg Outreac tablet tablet tablet h Program Immunizations Ordered Immunization Filled Immunization Date Status Commen ts Source Name Name ROSHAN COVID-19 MRNA 2020-11-10 Completed Meth odist VACCINATION 00:00:00 [facility] PFIZER COVID-19 MRNA 2020-10-20 Completed Meth odist VACCINATION 00:00:00 Hospital Vital Signs Vital Name Observation Time Observation Value Comments Source Height 2019-01-04 00:00:00 60 [in_i] [place] [facility] BMI (Body Mass 2019-01-04 00:00:00 33 kg/m2 [facility] rn clinician Index) [facility] Body Weight 2019-01-04 00:00:00 169 [lb_av[facility] Systolic blood 2021-04-07 15:03:00 127 mm[Hg] [facility] pressure Diastolic blood 2021-04-07 15:03:00 60 mm[Hg] [facility] pressure Heart rate 2021-04-07 15:03:00 91 /min [facility] Body height 2021-04-07 15:03:00 154.9 cm [facility] Body weight 2021-04-07 15:03:00 69.582 kg [facility] BMI 2021-04-07 15:03:00 28.98 kg/m2 [facility] Respiratory rate 2021-02-15 21:44:00 20 /min [facility] Oxygen saturation in 2021-02-15 21:31:00 99 /min [facility] Arterial blood by Pulse oximetry Body temperature 2021-02-15 16:33:33 35.78 [place] Procedures Procedure Date / Time Performing Source Performed Clinician BASIC METABOLIC PANEL 2021-02-15 Nuvia Blount 10:31:00 Hospital MAGNESIUM LEVEL 2021-02-15 Nuvia Blount 10:31:00 Hospital PHOSPHORUS LEVEL 2021-02-15 Jose Alejandro, Nuvia [facility] 10:31:00 Hospital ESTIMATED GFR 2021-02-15 Sarika Perkins [facility] 10:31:00 Hospital HC COMPLETE BLD COUNT W/AUTO DIFF 2021-02-15 Jose AlejandroMeghanai ra [facility] 10:30:00 Hospital HC COMPLETE BLD COUNT W/AUTO DIFF 2021-02-14 Jose Alejandro, Meghanai ra [facility] 09:28:00 Hospital BASIC METABOLIC PANEL 2021-02-14 Jose Alejandro, Nuvia [facility] 09:28:00 Hospital MAGNESIUM LEVEL 2021-02-14 Jose Alejandro, Nuvia [facility] 09:28:00 Hospital PHOSPHORUS LEVEL 2021-02-14 Jose Alejandro, Nuvia [facility] 09:28:00 Hospital ESTIMATED GFR 2021-02-14 Sarika Perkins [facility] 09:28:00 Hospital HC COMPLETE BLD COUNT W/AUTO DIFF 2021-02-13 Jose AlejandroMeghanai ra [facility] 09:52:00 Hospital BASIC METABOLIC PANEL 2021-02-13 Jose Alejandro Nuvia [facility] 09:52:00 Hospital MAGNESIUM LEVEL 2021-02-13 Jose Alejandro, Nuvia [facility] 09:52:00 Hospital PHOSPHORUS LEVEL 2021-02-13 Jose Alejandro, Nuvia [facility] 09:52:00 Hospital ESTIMATED GFR 2021-02-13 Sarika Perkins [facility] 09:52:00 Hospital HC COMPLETE BLD COUNT W/AUTO DIFF 2021-02-12 Confucianism, Hai U l [facility] 10:53:00 Hospital PROTHROMBIN TIME WITH INR 2021-02-12 Confucianism, Hai Ul Method ist 10:53:00 Hospital PARTIAL THROMBOPLASTIN TIME (PTT) 2021-02-12 Confucianism, Hai U l [facility] 10:53:00 Hospital COMPREHENSIVE METABOLIC PANEL 2021-02-12 Confucianism, Hai Ul Me thodist 10:53:00 Hospital MAGNESIUM LEVEL 2021-02-12 Confucianism, Hai Ul [facility] 10:53:00 Hospital PHOSPHORUS LEVEL 2021-02-12 Confucianism, Hai Ul [facility] 10:53:00 Hospital ESTIMATED GFR 2021-02-12 Cami Chen [facility] 10:53:00 [facility] ARTERIAL BLOOD GAS 2021-02-12 Maddie, Sarika Negron 04:40:00 Hospital VENOUS BLOOD GAS 2021-02-12 Flores Bryant 04:22:00 Hospital TROPONIN 2021-02-12 Hai Humphreyist 04:21:00 Hospital PROCALCITONIN 2021-02-12 Flores Bryant 04:21:00 Hospital ID CRITICAL CARE, E/M [id number] 2021-02-12 Cami Chen MINUTES 03:07:40 [facility] ECG ED PRELIMINARY INTERPRETATION 2021-02-12 Cami Chen 03:07:40 [facility] ALT (SGPT) 2021-02-12 Cami Chen 02:49:00 [facility] AST (SGOT) 2021-02-12 Cami Chen 02:49:00 [facility] POTASSIUM LEVEL 2021-02-12 Cami Chen 02:49:00 [facility] XR CHEST 1 VW PORTABLE 2021-02-12 Cami Chen 01:22:01 [facility] COVID-19 QUALITATIVE RT-PCR 2021-02-12 Cami Chen odist 01:17:00 [facility] TROPONIN 2021-02-12 Hai Humphrey [facility] 00:57:00 [facility] B NATRIURETIC PEPTIDE 2021-02-12 Cami Chen 00:57:00 [facility] COMPREHENSIVE METABOLIC PANEL 2021-02-12 Cami Chen thodist 00:57:00 [facility] HC COMPLETE BLD COUNT W/AUTO DIFF 2021-02-12 Cami Chen 00:57:00 [facility] ESTIMATED GFR 2021-02-12 Cami Chen 00:57:00 [facility] ECG 12-LEAD 2021-02-12 Cami Chen 00:03:52 [facility] ESOPHAGOGASTRODUODENOSCOPY (EGD) 2020-12-01 Juan Jose Hartley 18:31:00 Hospital COVID-19 QUALITATIVE RT-PCR 2020-11-26 Juan Jose Hartley odangela 18:26:00 Hospital COVID-19 QUALITATIVE RT-PCR 2020-11-06 Juan Jose Hartley Hillary odist 17:25:00 Hospital HC COMPLETE BLD COUNT W/AUTO DIFF 2020-07-31 Pakistani, Emanuel Negron 10:55:00 [facility] BASIC METABOLIC PANEL 2020-07-31 Emanuel Cano 10:00:00 Hospital FERRITIN LEVEL 2020-07-31 Pakistani, Emanuel Negron 10:00:00 Hospital FOLATE LEVEL 2020-07-31 Pakistani, Emanuel Negron 10:00:00 Hospital MAGNESIUM LEVEL 2020-07-31 Pakistani, Emanuel Negron 10:00:00 Hospital PHOSPHORUS LEVEL 2020-07-31 Pakistani, Emanuel Negron 10:00:00 [facility] THYROID STIMULATING HORMONE 2020-07-31 Pakistani, Emanuel hart 10:00:00 [facility] VITAMIN B12 LEVEL 2020-07-31 Pakistani, Emanuel Negron 10:00:00 [facility] ESTIMATED GFR 2020-07-31 Pakistani, Emanuel Negron 10:00:00 [facility] SURGICAL PATHOLOGY REQUEST 2020-07-30 [facility] Hospital OR [place] < 1 HOUR 2020-07-30 Juan Damon 18:23:19 [facility] ID AN ELECTIVE ENDOTRACHEAL AIRWAY 2020-07-30 RasheedaanalTeena ier [facility] 18:20:29 [employer] LAMINECTOMY, LUMBAR 2020-07-30 Beny Medel 18:04:00 [facility] COVID-19 QUALITATIVE RT-PCR 2020-07-28 Beny Mdeel ethodist 22:10:00 [facility] MRI LUMBAR SPINE WO CONTRAST 2020-06-22 Beny Medel 20:00:00 [facility] Plan of Care Planned Activity Planned Date Details Comments Source Future Scheduled Test BREAST CANCER SCREENING [facility] [code = BREAST CANCER SCREENING] Future Scheduled Test SHINGLES VACCINES (#1) [facility] [code = SHINGLES VACCINES (#1)] Future Scheduled Test 65+ PNEUMOCOCCAL [facility] VACCINE (2 of 4 - PPSV23) [code = 65+ PNEUMOCOCCAL VACCINE (2 of 4 - PPSV23)] Future Scheduled Test COLONOSCOPY SCREENING [facility] [code = COLONOSCOPY SCREENING] Future Scheduled Test INFLUENZA VACCINE [code [facility] = INFLUENZA VACCINE] Encounters Start End Encounter Admission Attending Care Care Encounter Source Date/Time Date/Time Type Type Clinicians Facility Department ID 2021-04-12 2021-04-12 Telephone Jordana, 1.2.840.1 [id number] Methodi 00:00:00 00:00:[address] 3.430.2.7 Hospit a .3.130390 l .8 2021-04-07 2021-04-07 Office Ramin 1.2.840.6 [id number] Methodi 09:51:06 13:38:07 Visit Theodora Davey 35012.1.1 389 s t 3.430.2.7 Hospit a .3.292725 l .8 2021-04-07 2021-04-07 Outpatient RAMIN [facility] [id number] [place] 00:00:00 00:00:00 THEODORA [facility] 2021-04-07 2021-04-07 Orders Doctor VANESSA 1.2.840.114 [id number] 00:00:00 00:00:00 Only Unassigned, TIERA 350.1.13.10 [facility] [id number] 009 2021-04-07 2021-04-07 Orders Jordana, 1.2.840.1 [id number] Methodi 00:00:00 00:00:00 Only Nicki 62112.1.[address] 3.430.2.7 Hospit a .3.809142 l .8 2021-04-07 2021-04-07 Telephone Clare 1.2.840.8 [id number] Methodi 00:00:00 00:00:[address] 3.430.2.7 Hospit a .3.218710 l .8 2021-04-07 2021-04-07 Travel 1.2.840.1 1.2.407.376 4999 [id number] Methodi 00:00:00 00:00:[address] 3.430.2.7 0.2.7.3.698 Ho spita .3.807208 084.8 l .8 2021-03-31 2021-03-31 Telephone [facility] 1.2.840.114 [id number] 00:00:00 00:00:00 [facility] 350.1.13.10 [place] 4.2.7.2.686 Professio [phone] nal 044 Office [address] One 2021-03-31 2021-03-31 Telephone [facility] 1.2.840.114 [id number] 00:00:00 00:00:00 [facility] 350.1.13.10 [place] 4.2.7.2.686 Professio [phone] nal 044 Office Building One 2021-03-30 2021-03-30 Office Faustin, 1.2.840.6 [id number] Methodi 14:00:51 16:49:12 Visit Theodora Mariscal 25503.1.1 640 s t 3.430.2.7 Hospit a .3.004332 l .8 2021-03-30 2021-03-30 [facility] [id number] [place] 00:00:00 00:00:00 THEODORA Urrutia [facility] 2021-03-30 2021-03-30 Orders Doctor VANESSA 1.2.840.114 [id number] 00:00:00 00:00:00 Only Unassigned, TIERA 350.1.13.10 [facility] 4.2.7.2.686 [id number] 009 2021-03-30 2021-03-30 Travel 1.2.840.1 1.2.448.549 4602 [id number] Methodi 00:00:00 00:00:[address] 3.430.2.7 0.2.7.3.698 Ho spita .3.163927 084.8 l .8 2021-03-28 2021-03-28 Office [facility] 1.2.840.114 [id number] 14:21:08 14:36:08 Visit [facility] 350.1.13.10 [place] 4.2.7.2.686 Profauroraio [phone] nal 044 Office [address] One 2021-03-28 2021-03-28 Orders Doctor VANESSA 1.2.840.114 [id number] 00:00:00 00:00:00 Only Unassigned, TIERA 350.1.13.10 [facility] 4.2.7.2.686 [id number] 009 2021-03-16 2021-03-16 Orders Doctor VANESSA 1.2.840.114 [id number] 00:00:00 00:00:00 Only Unassigned, TIERA 350.1.13.10 [facility] 4.2.7.2.686 [id number] 009 2021-02-23 2021-02-23 Telemedici [place] 03331.2.840.1 [id number] Methodi 09:53:23 10:41:02 ne Juan Jose 78624.1.[address] 3.430.2.7 Hospit a .3.940813 l .8 2021-02-23 2021-02-23 Outpatient [facility] [id number] [place] 00:00:00 00:00:00 JUAN JOSE [address] 2021-02-11 2021-02-15 [facility] 1.2.840 .1 [id number] Methodi 19:12:00 17:13:00 Encounter Sarika Perkins 55668.1.1 6 11 [facility] 3.430.2.7 Hospita .3.595982 l .8 2021-02-11 2021-02-15 Inpatient [facility] [id number] 133 [place] 00:00:00 00:00:00 LINDA [address] 2020-12-01 2020-12-01 [facility] 1.2.840.1 [id number] Methodi 10:18:00 13:55:00 Encounter Juan Jose 67896.1.[address] 3.430.2.7 Hospit a .3.843794 l .8 2020-12-01 2020-12-01 Anesthesia Shawanda Agustin 1.2.840.1 [id number] Methodi 12:31:00 13:04:00 Event Julieta Monson 10629.1.[address] 3.430.2.7 Hospit a .3.528454 l .8 2020-12-01 2020-12-01 Surgery Deirdre, 1.2.840.1 [id number] Methodi 12:30:00 13:00:00 Juan Jose 43569.1.[address] 3.430.2.7 Hospit a .3.269955 l .8 2020-12-01 2020-12-[address] [facility] [id number] [place] [address] 00:00:00 00:00:00 JUAN JOSE [address] 2020-12-01 2020-12-01 Refill Deirdre, 1.2.840.1 [id number] 9482 Methodi 00:00:00 00:00:00 Juan Jose [address]892.1.[address] 3.430.2.7 Hospit a .3.867018 l .8 2020-12-01 2020-12-01 Orders Serban, 1.2.840.1 [id number] Methodi 00:00:00 00:00:00 Only Nicki 58607.1.[address] 3.430.2.7 Hospit a .3.490063 l .8 2020-12-01 2020-12-01 Travel 1.2.840.1 1.2.969.074 0140 [id number] Methodi 00:00:00 00:00:[address] 3.430.2.7 0.2.7.3.698 Ho spita .3.235484 084.8 l .8 2020-11-26 2020-11-26 Lab Deirdre, 1.2.840.1 [id number] Methodi 12:13:15 12:28:15 Juan Jose 37695.1.[address] 3.430.2.7 Hospit a .3.524079 l .8 2020-11-26 2020-11-26 Outpatient [facility] [id number] [place] 00:00:00 00:00:00 JUAN JOSE [address] 2020-11-26 2020-11-26 Travel 1.2.840.1 1.2.918.417 7970 [id number] Methodi 00:00:00 00:00:[address] 3.430.2.7 0.2.7.3.698 Ho spita .3.172140 084.8 l .8 2020-11-24 2020-11-24 Travel 1.2.840.1 1.2.457.611 4690 147116 Methodi 00:00:00 00:00:[address] 3.430.2.7 0.2.7.3.698 Ho spita .3.721996 084.8 l .8 2020-11-10 2020-11-10 Clinical 1.2.840.1 [id number] 80941 Methodi 14:47:58 14:59:03 [facility] 51787.1.[address] 3.430.2.7 Hospit a .3.897967 l .8 2020-11-10 2020-11-10 Outpatient [facility] [id number] [place] 00:00:00 00:00:[address] 2020-11-06 2020-11-06 [facility], 1.2.840.1 [id number] 9726 Methodi 11:24:52 11:29:52 [facility] [address]7718.1.[address] 3.430.2.7 Hospit a .3.719076 l .8 2020-11-06 2020-11-06 [facility] [id number] 465 [place] 00:00:00 00:00:00 JUAN JOSE [address] 2020-10-20 2020-10-20 Clinical 1.2.840.1 [id number] [id number] Methodi 11:53:47 12:33:[address] 3.430.2.7 Hospit a .3.224958 l .8 2020-10-20 2020-10-20 Outpatient [facility] [id number] [place] 00:00:00 00:00:[address] 2020-10-18 2020-10-18 Travel 1.2.840.1 1.2.398.340 6653 [id number] Methodi 00:00:00 00:00:[address] 3.430.2.7 0.2.7.3.698 Ho spita .3.434209 084.8 l .8 2020-09-29 2020-09-29 Orders Serban, 1.2.840.1 [id number] 7941 Methodi 00:00:00 00:00:00 Only Nicki 56419.1.[address] 3.430.2.7 Hospit a .3.380427 l .8 2020-08-27 2020-08-27 Refill Deirdre, 1.2.840.1 [id number] 4436 Methodi 00:00:00 00:00:00 Juan Jose 97535.1.[address] 3.430.2.7 Hospit a .3.158700 l .8 2020-08-12 2020-08-12 Office Lizy, 1.2.840.1 [id number] Methodi 11:00:47 11:15:47 Visit Beny Everett 11523.1.1 040 s t 3.430.2.7 Hospit a .3.450213 l .8 2020-08-12 2020-08-12 Outpatient LIZY, [facility] [id number] [place] 00:00:00 00:00:00 BENY Gambino [facility] 2020-08-12 2020-08-12 Travel 1.2.840.1 1.2.703.605 0067 [id number] Methodi 00:00:00 00:00:[address] 3.430.2.7 0.2.7.3.698 Ho spita .3.988333 084.8 l .8 2020-07-30 2020-07-31 [facility] [place], 1.2.840.1 [id number] 16559 Methodi 07:37:00 12:53:00 Encounter Beny Everett 41494.1.[address] 3.430.2.7 Hospit a .3.748639 l .8 2020-07-30 2020-07-31 Outpatient [place] [id number] 097 [place] 00:00:00 00:00:00 BENY [address] 2020-07-30 2020-07-30 [place], 1.2.840.1 [id number] Methodi 13:30:00 14:50:00 Beny Everett 95549.1.1 125 s t 3.430.2.7 Hospit a .3.060966 l .8 2020-07-30 2020-07-30 Anesthesia Bharat Izaguirre 1.2.840 .1 [id number] Methodi 12:04:00 13:04:00 Event Nataliia Hurd 43620.1.[address] 3.430.2.7 Hospit a .3.800565 l .8 2020-07-30 2020-07-30 Travel 1.2.840.1 1.2.414.545 5180 [id number] Methodi 00:00:00 00:00:[address] 3.430.2.7 0.2.7.3.698 Ho spita .3.315091 084.8 l .8 2020-07-28 2020-07-28 Lab [place], 1.2.840.1 [id number] 6283 Methodi 16:01:22 16:06:22 Beny Everett 63974.1.1 128 s t 3.430.2.7 Hospit a .3.105587 l .8 2020-07-28 2020-07-28 Outpatient [facility] [id number] 939 [place] 00:00:00 00:00:00 BENY [address] 2020-07-28 2020-07-28 Travel 1.2.840.1 1.2.691.795 1653 [id number] Methodi 00:00:00 00:00:[address] 3.430.2.7 0.2.7.3.698 Ho spita .3.389073 084.8 l .8 2020-07-08 2020-07-13 Office [place], 1.2.840.1 [id number] 6631 Methodi 09:09:57 15:14:44 Visit Beny Everett 86302.1.1 542 s t 3.430.2.7 Hospit a .3.480931 l .8 2020-07-11 2020-07-11 Orders Prabhjot, 1.2.840.1 [id number] 6334 Methodi 00:00:00 00:00:00 Only Phylicia 26086.1.[address] 3.430.2.7 Hospit a .3.127434 l .8 2020-07-08 2020-07-08 Outpatient [facility] [id number] [address] [place] [address] 00:00:00 00:00:00 BENY MccabeDidier [facility] 2020-07-08 2020-07-08 Travel 1.2.840.1 1.2.622.511 9431 [id number] Methodi 00:00:00 00:00:[address] 3.430.2.7 0.2.7.3.698 Ho spita .3.477887 084.8 l .8 2020-07-06 2020-07-06 Telephone [place], 1.2.840.1 [id number] Methodi 00:00:00 00:00:[address] [place] 3.430.2.7 Hospi ta .3.125865 l .8 2020-07-05 2020-07-05 Telephone [place], 1.2.840.1 [id number] [id number] Methodi 00:00:00 00:00:[address] [place] 3.430.2.7 Hospi ta .3.511442 l .8 2020-07-05 2020-07-05 Travel 1.2.840.1 1.2.980.913 7026 098610 Methodi 00:00:00 00:00:[address] 3.430.2.7 0.2.7.3.698 Ho spita .3.346133 084.8 l .8 2020-06-30 2020-06-30 Telephone [place], 1.2.840.1 [id number] Methodi 00:00:00 00:00:[address] [place] 3.430.2.7 Hospi ta .3.881513 l .8 2020-06-29 2020-06-29 External Ra, 1.2.840.1 [id number] 2099 113445 Methodi 00:00:00 00:00:00 Home Priyanka 54147.1.[address] [facility] 3.430.2.7 Hospit a .3.688477 l .8 2020-06-22 2020-06-22 [facility] [place], 1.2.840.1 [id number] 93090 Methodi 12:49:16 23:59:00 Encounter Beny Everett 61773.1.[address] 3.430.2.7 Hospit a .3.550246 l .8 2020-06-22 2020-06-22 Office [place], 1.2.840.1 [id number] 2457 Methodi 09:23:41 09:38:41 Visit Beny Everett 63961.1.1 733 s t 3.430.2.7 Hospit a .3.803160 l .8 2020-06-22 2020-06-22 Outpatient LIZY [facility] [id number] 273 [place] 00:00:00 00:00:00 BENY [address]Ver[address] [facility] 2020-06-22 2020-06-22 Outpatient LIZY [facility] [id number] 748 [place] 00:00:00 00:00:00 BENY 95Susana [facility] 2020-06-22 2020-06-22 Travel 1.2.840.1 1.2.935.332 3271 [id number] Methodi 00:00:00 00:00:[address] 3.430.2.7 0.2.7.3.698 Ho spita .3.185792 084.8 l .8 2020-06-11 2020-06-11 Travel 1.2.840.1 1.2.900.117 2971 952084 Methodi 00:00:00 00:00:[address] 3.430.2.7 0.2.7.3.698 Ho spita .3.043280 084.8 l .8 2020-04-30 2020-04-30 Outpatient DEIRDRE, [facility] [id number] 630 [place] 00:00:00 00:00:00 JUAN JOSE [address] 2020-04-28 2020-04-28 Outpatient TRACEY, [facility] 913 [id number] [place] 00:00:00 00:00:00 SASHA [address] 2020-04-23 2020-04-23 Outpatient DEIRDRE, [facility] [id number] 567 [place] 00:00:00 00:00:00 JUAN JOSE [address] 2020-04-14 2020-04-14 Outpatient DEIRDRE, [facility] [id number] 520 [place] 00:00:00 00:00:00 JUAN JOSE [address] 2020-03-24 2020-03-24 Outpatient TRACEY, [facility] 040 [id number] 229 [place] 00:00:00 00:00:00 SASHA [address] 2020-03-22 2020-03-22 Outpatient DEIRDRE, [facility] [id number] 834 [place] 00:00:00 00:00:00 JUAN JOSE [address] 2020-03-16 2020-03-16 Outpatient DEIRDRE, [facility] [id number] 507 [place] 00:00:00 00:00:00 JUAN JOSE [address] 2020-03-16 2020-03-16 Outpatient DEIRDRE, [facility] [id number] 785 [place] 00:00:00 00:00:00 JUAN JOSE [address] 2020-02-27 2020-02-27 Outpatient DEIRDRE, [facility] [id number] 245 [place] 00:00:00 00:00:00 JUAN JOSE 883 Method i 2020-02-13 2020-02-13 Outpatient [facility] [id number] [place] 00:00:00 00:00:00 524 Method i 2020-01-30 2020-02-04 Inpatient FORCE, [facility] 064 [id number] 25 [place] 00:00:00 00:00:00 CHRISTOPHER 638 Oh thodi 2019-11-30 2019-11-30 Emergency BAKSHY, [place] [address] [id number] 39 [place] 00:00:00 00:00:00 BHARATHI 322 Method i 2019-10-21 2019-10-26 Inpatient ANATOLIY, [facility] [id number] [place] 00:00:00 00:00:00 TRACEY 512 Method i 2019-07-21 2019-07-30 Inpatient CHUY, [facility] 064 [id number] [place] 00:00:00 00:00:00 CAIL 285 Method i 2019-03-08 2019-03-08 Franco [place] - [id number] [place] 00:00:00 00:00:00 MD Gustavo: Devonte price [address] - [address], [facility] [place] [phone] Progr am , Ph. ([phone]) -20072019-01-04 2019-01-04 Franco [place] - [id number] [place] 00:00:00 00:00:00 MD Gustavo: Devonte price [address], [facility] [place] [phone] Progr am , Ph. [phone] -[phone] Results Test Description Test Time Test Comments Results Result Comments Source Arterial blood gas 2021-02-12 04:58:38 Test Item Value Reference Range Interpretation Comme nts pH, arterial (test code = 7.35-7.45 2744-1) pCO2, arterial (test code = See_Comment H [Automated message] The 2019-04) system which ge nerated this result transmit apoorva reference range: 35 - 45 mmHg. The reference range was not used to interpret th is result as normal/abnormal . pO2, arterial (test code = See_Comment H [Automated message] The 2703-03) system which ge nerated this result transmit apoorva reference range: 80 - 90 mmHg. The reference range was not used to interpret th is result as normal/abnormal . Bicarbonate, arterial (test 27.0 mmol/L 21.0-28.0 code = 1960-4) Base excess, arterial (test See_Comment [Automated message] The code = 1925-7) system which generated this result transmit apoorva reference range: -2 - 2 m Eq/L. The reference range was not used to interpret th is result as normal/abnormal . O2 saturation, arterial (test 98 % 95-100 code = 2708-6) Lab Interpretation (test code = Abnormal 21673-4) [facility]2021-05-22 03:07:40Cami Chen MD 03/03/2021 5:13 PMCritical CarePerformed by: Cami Chen MDAuthorized by: Cami Chen MD Critical care provider statement: Critical care time (minutes): 45 Critical care time was exclusive of: Separately billable procedures and treating other patients and teaching time Critical care was necessary to treat or prevent imminent or life- threatening deterioration of the following conditions: Renal failure and respiratory failure (COPD exacerbation and BIBI) Critical care was time spent personally by me on the following activities: Development of treatment plan with patient or surrogate, discussions with consultants, examination ofpatient, re-evaluation of patient's condition, pulse oximetry, evaluation of patient's response to treatment, discussions with primary provider, ordering and review of laboratory studies, ordering and performing treatments and interventions and obtaining history from patient or surrogate Ward 'yes' if you are taking over critical care for this patient from another provider.: no Comments: Critical care time was spent in evaluating the patient, reviewing the diagnostic data, discussing with any family present. This patient has a high probability of sudden, clinically significant deterioration, which requires the highest level physician preparedness to intervene urgently. I managed life-threatening and/or end organ supporting interventions that require frequent physician assessment. I devoted my full attention to the direct care of this patient for the period of time of I have indicated. Timespent with family or surrogates is only included the patient was incapable of providing the necessary information or participating in the medical decision making. Time devoted to any procedures is billed separately and not included in critical care time.[facility] ED Preliminary Interpretation - Not an [id number] 03:07:40Cami Chen MD 03/03/2021 5:13 [facility] [facility] [place] Interpretation - Not an OrderPerformed by: Cami Chen MDAuthorized by: Cami Chen MD ECG reviewedby ED Physician in the absence of a mining machinery assembler: yes Interpretation: Interpretation: normal Rate: ECG rate: 91 ECG rate assessment: normal Rhythm: Rhythm: sinus rhythm Conduction: Conduction: normal ST segments: ST segments: NormalT waves: T waves: normal Comments: No STEMIMethB[facility] 12 [id number] 03:00:47 Test Item Value Reference Range Interpretation Comments Ventricular rate (test code = 253) Atrial rate (test code = 255) ID interval (test code = 266) QRSD interval (test code = 260) QT interval (test code = 264) QTC interval (test code = 265) P axis 1 (test code = 267) QRS axis 1 (test code = 268) T wave axis (test code = 270) EKG impression (test Normal sinus rhythm-Left code = 273) axis deviation-Nonspecific intraventricular conduction delay-Abnormal ECG-In automated comparison with ECG of 02-FEB-2020 21:08,-QRS axis shifted left- [facility] Vw [id number] 01:24:10EXAMINATION: XR CHEST 1 VW PORTABLE CLINICAL HISTORY: SOB COMPARISON: 02/10/2020 IMPRESSION:1.The heart and pulmonary vasculature are within normal limits.2.No consolidation or pleural effusion is demonstrated.3.There is no acute osseous pathology. [id number] Interface, Radiology Results Incoming - 02/11/2021 8:27 PM CDT EXAMINATION: XR CHEST 1 VW PORTABLECLINICAL HISTORY: SOBCOMPARISON: 02/10/2020IMPRESSION:1.The heart and pulmonary vasculature are within normal limits.2.No consolidation or pleural effusion is demonstrated.3.There is no acute osseous pathology.[id number] Samaritan HospitalFwvapptuIWGB-WpT-9 (COVID-19) RNA [Presence] in Respiratory specimen by YANA with probe [id number] 00:22:59 Test Item Value Reference Range Interpretation Comments SARS-CoV-2 (COVID-19) RNA Not detected Not-Detected [Presence] in Respiratory specimen by YANA with probe detection (test code = 96157-9) Whether patient is employed in a healthcare setting (test code = 45247-5) Whether the patient has symptoms related to condition of interest (test code = 15521-6) Patient was hospitalized because of this condition (test code = 59200-9) Whether the patient was admitted to intensive care unit (ICU) for condition of interest (test code = 62765-3) Whether patient resides in a congregate care setting (test code = 62336-5) SARS-CoV-2 (COVID-19) RNA [Presence] in Respiratory specimen by YANA with probe [id number] 15:36:49 Test Item Value Reference Range Interpretation Comments SARS-CoV-2 (COVID-19) RNA Not detected Not-Detected [Presence] in Respiratory specimen by YANA with probe detection (test code = 86950-3) OR FL < 1 [id number] 17:16:01EXAMINATION: OR FL < 1 HOUR C-arm fluoroscopy was requested in OR. OPC19 OR ROOM: 8 PROCEDURE: DECOMPRESSION L3-5 START TIME: 1150 END TIME: 1220 FLUORO TIME: 2 secs DOSAGE: 1.17 mGy TECH: AC IMPRESSION: Intraoperative fluoroscopic images. Radiologist was not present during the examination.Separate operative report will be issued by the physician performing the procedure. [id number] Interface, Radiology Results Incoming - 08/06/2020 11:19 AM CST EXAMINATION: OR FL < 1 HOURC-arm fluoroscopy was requested in OR. OPC19 OR ROOM: 8 PROCEDURE: DECOMPRESSION L3-5 START TIME: 1150 END TIME: 1220 FLUORO TIME: 2 secs DOSAGE: 1.17 mGy TECH: ACIMPRESSION:Intraoperative fluoroscopic images. Radiologist was not present during the examination.Separate operative report will be issued by the physician performing the procedure.[id number]_LT03[facility] [id number] 21:36:56 Test Item Value Reference Range Interpretation Comments Case number (test code = [id number]) Surgical pathology See link below for report (test code = PDF Lab Report [id number]) Result status (test code This is Final Report = [id number]) for [id number] [id number] 18:20:29You Cisneros CRNA 07/30/2020 12:23 PMAirway Date/Time: 07/30/2020 12:10 PMPerformed by: You Cisneros CRNAAuthorized by: Bharat Izaguirre MD Location: ORUrgency: ElectiveDifficult Airway: No Anesthesiologist: Bharat Izaguirre, MEEKesident/TOSSER/AA: You Cisneros, KINGSOther Anesthesia Staff: Andrea HurdthaPerformed by: other anesthesia staffPreoxygenated with 100% O2: Yes C-spine Precautions Maintained Throughout: Yes Mask Ventilation:Not attemptedFinal Airway Type: Endotracheal airwayFinal Endotracheal Airway: ETTCuffed: Yes Technique Used: Direct laryngoscopyDevices/Methods Used in Placement: Intubating styletInsertion Site: OralBlade Type: MillerLaryngoscope Blade/Videolaryngoscope Blade Size: 2ETT Size (mm): 7.0Cuff atminimum occlusion pressure: Yes Measured from: LipsETT to Lips (cm): 20Placement Verified by: [email or web address], direct visualization and equal breath sounds Laryngoscopic view: Grade I - full view ofglottisRapid Sequence Induction (RSI): No Modified RSI: Yes Number of Attempts at Approach: 1 Smooth, atraumatic laryngoscopy by SRNA; dentition intactH[facility] SARS-CoV-2 (COVID-19) RNA [Presence] in Respiratory specimen by YANA with probe [id number] 21:29:12 Test Item Value Reference Range Interpretation Comments SARS-CoV-2 (COVID-19) RNA Not detected Not-Detected [Presence] in Respiratory specimen by YANA with probe detection (test code = 93549-5) MRI Lumbar Spine Wo [id number] 13:42:46EXAMINATION: MRI LUMBAR SPINE WO CONTRAST CLINICAL HISTORY: M54.31 Sciatica right side, M54.32 Sciatica left side, PAIN COMPARISON: MRI of the lumbar spine from May 19, 2019. TECHNIQUE: Multiplanar multisequence noncontrast enhanced examination was performed of the Lumbar spine. FINDINGS: There are degenerative changes of the sacroiliac joints. There is increased lumbar lordosis. There are fractures of the upper L1 and T12 vertebral bodies with signal changes suggesting they are old, although t hey are new compared with the exam from April 2019. There is mild retropulsion of the upper endplates indenting the anterior subarachnoid space on the sagittal images. There is old signal intensity superior compression fracture of the L5 vertebral body with mild retropulsion of the upper endplate. This along with bulge or protrusion at L4-5 and posterior epidural fat and facet hypertrophy results insevere narrowing of the subarachnoid space at the L4-5 disc space level and upper L5 endplate level.At L4-5, there is also severe left and moderate right foraminal stenosis. There is decreased T1 signal intensity in the upper right sacral ala and adjacent iliac bone suggesting some edema which could be from a recent fracture. This can be better evaluated with MRI of the sacrum and coccyx. There are degenerative changes of the sacroiliac joints. There is decreased T2 signal intensity in the lumbar discs. L5-S1: There is severe disc space narrowing and surrounding endplate degenerative change. There is laminectomy with enlargement of the posterior subarachnoid space. There is a new protrusion in the right paracentral region with some mass effect on the right S1 nerve on the axial T1 images. There is facet hypertrophy. There is relatively stable moderate to severe right and moderate left foraminalstenosis. There is extraforaminal spondylosis near the nerves. L3-4: There is greater posterior discspace narrowing. There is bulge indenting the anterior subarachnoid space in the region of the nerveroots. There is posterior epidural fat and facet and ligamentum flavum hypertrophy. There is moderate narrowing of the AP dimension of the central subarachnoid space. There is lateral recess stenosis. There is a protrusion in the inferior right foramen and in the extraforaminal region extending up to the nerve with moderate right foraminal stenosis. Compared to prior exam, the foramen stenosis and protrusion are decreased in size. There is mild left foraminal stenosis from degenerative change. L2-3:There is mild retrolisthesis with greater posterior disc space narrowing. There is uncovered disc and bulge indenting the anterior subarachnoid space. There is facet hypertrophic change. There is mild narrowing of the lateral recesses and mild to moderate foraminal stenosis. L1-2: There is bulge and facet hypertrophy with mild anterior and posterolateral indentation on the subarachnoid space. There is no significant central canal stenosis or foraminal stenosis from degenerative change. The study isnot performed for proper imaging of the soft tissue structures in the abdomen and pelvis. IMPRESSION: Decreased T1 signal intensity in the right upper sacral ala could be from edema from a recent fracture. This can be best evaluated with MRI of the sacrum and coccyx. There is also some decreased T1 signal intensity in the right adjacent iliac bone and that could be from recent fracture. Degenerativechanges with narrowing of the subarachnoid space most prominent at L4-5 and second most prominent atL3- 4. This is increased compared with the old exam. Decreased right L3-4 foraminal stenosis and decreased size of foramen and extraforaminal protrusion, although it still extends up to the region of the nerve. New right paracentral L5-S1 protrusion with asymmetric increased posterior displacement of the S1 nerve on the axial T1-weighted images. Lateral recess and foraminal stenosis as described. [facility]-[id number] Interface, Radiology Results - 06/23/2020 8:45 AM CDT EXAMINATION: MRI LUMBAR SPINE WO CONTRASTCLINICAL HISTORY: M54.31 Sciatica right side, M54.32 Sciatica left side, PAINCOMPARISON: MRI of the lumbar spine fromMay 19, 2019.TECHNIQUE: Multiplanar multisequence noncontrast enhanced examination was performed of the Lumbar spine.FINDINGS:There are degenerative changes of the sacroiliac joints. There is increased lumbar lordosis. There are fractures of the upper L1 and T12 vertebral bodies with signal changessuggesting they are old, although they are new compared with the exam from April 2019. There is mild retropulsion of the upper endplates indenting the anterior subarachnoid space on the sagittal images . There is old signal intensity superior compression fracture of the L5 vertebral body with mild retropulsion of the upper endplate. This along with bulge or protrusion at L4-5 and posterior epidural fat and facet hypertrophy results in severe narrowing of the subarachnoid space at the L4-5 disc space level and upper L5 endplate level. At L4-5, there is also severe left and moderate right foraminal stenosis.There is decreased T1 signal intensity in the upper right sacral ala and adjacent iliac bone suggesting some edema which could be from a recent fracture. This can be better evaluated with MRI ofthe sacrum and coccyx. There are degenerative changes of the sacroiliac joints.There is decreased X5rovays intensity in the lumbar discs.L5-S1: There is severe disc space narrowing and surrounding endplate degenerative change. There is laminectomy with enlargement of the posterior subarachnoid space.There is a new protrusion in the right paracentral region with some mass effect on the right S1 nerve on the axial T1 images. There is facet hypertrophy. There is relatively stable moderate to severe right and moderate left foraminal stenosis. There is extraforaminal spondylosis near the nerves.L3-4: There is greater posterior disc space narrowing. There is bulge indenting the anterior subarachnoid space in the region of the nerve roots. There is posterior epidural fat and facet and ligamentum flavum hypertrophy. There is moderate narrowing of the AP dimension of the central subarachnoid space. There is lateral recess stenosis. There is a protrusion in the inferior right foramen and in the extraforaminal region extending up to the nerve with moderate right foraminal stenosis. Compared to prior exam, the foramen stenosis and protrusion are decreased in size. There is mild left foraminal stenosis from degenerative change.L2-3: There is mild retrolisthesis with greater posterior disc space narrowing. There is uncovered disc and bulge indenting the anterior subarachnoid space. There is facet hypert rophic change. There is mild narrowing of the lateral recesses and mild to moderate foraminal stenosis. L1-2: There is bulge and facet hypertrophy with mild anterior and posterolateral indentation on the subarachnoid space. There is no significant central canal stenosis or foraminal stenosis from degenerative change.The study is not performed for proper imaging of the soft tissue structures in the abdomen and pelvis.IMPRESSION: Decreased T1 signal intensity in the right upper sacral ala could be from edema from a recent fracture. This can be best evaluated with MRI of the sacrum and coccyx. There is also some decreased T1 signal intensity in the right adjacent iliac bone and that could be from recent fracture.Degenerative changes with narrowing of the subarachnoid space most prominent at L4-5 andsecond most prominent at L3-4. This is increased compared with the old exam.Decreased right L3-4 foraminal stenosis and decreased size of foramen and extraforaminal protrusion, although it still extends up to the region of the nerve.New right paracentral L5-S1 protrusion with asymmetric increased posterior displacement of the S1 nerve on the axial T1-weighted images.Lateral recess and foraminal stenosis as described.[facility]-[id number] GxfyumliDJYE-SeZ-9 (COVID-19) RNA [Presence] in Respiratory specimen by YANA with probe [id number] 18:35:38 Test Item Value Reference Range Interpretation Comments SARS-CoV-2 (COVID-19) RNA Not detected Not-Detected [Presence] in Respiratory specimen by YANA with probe detection (test code = 87020-2) SARS coronavirus 2 RNA [Presence] in Respiratory specimen by YANA with probe [id number] 09:24:56 Test Item Value Reference Range Interpretation Comments SARS coronavirus 2 RNA Not detected Not-Detected [Presence] in Respiratory specimen by YANA with probe detection (test code = 68636-3) SARS coronavirus 2 RNA [Presence] in Respiratory specimen by YANA with probe [id number] 11:50:04 Test Item Value Reference Range Interpretation Comments SARS coronavirus 2 RNA Not detected Not-Detected [Presence] in Respiratory specimen by YANA with probe detection (test code = 07705-3)
[2021-05-15] MEDS ORDERED: BUPIVACAINE 0.5% PF 10 ML VIAL ONE (18:48)
[2021-05-15] MEDS ORDERED: LIDOCAINE 1% MPF 30 ML VIAL ONE (18:48)
[2021-05-15] MEDS ORDERED: CEPHALEXIN 250 MG CAP ONE (19:11)
[2021-05-15] MEDS ORDERED: NA CHLORIDE 0.9% 500 ML ONE (19:12)
[2021-05-15] MEDS ORDERED: COLCHICINE 0.6 MG TAB ONE ×2 (19:12→21:27)
[2021-05-15] MEDS ORDERED: MORPHINE 2 MG/ML SYR ONE (19:12)
[2021-05-15] MEDS ORDERED: ONDANSETRON 4 MG/2 ML VIAL ONE ×2 (19:12→20:59)
[2021-05-15] MEDS ORDERED: CEFAZOLIN/SWI 1gm 1 GM/10 ML SYR ONE (19:13)
[2021-05-15 19:35] LABS: Absolute Lymphocytes (CBC) 1.1 K/uL (0.7-4.9); Basophils % 0.4 % (0-1.3); Hematocrit 32.3 % (36.0-45.0); Lymphocytes % 7.9 % (15.3-44.8); MPV 9.1 fL (7.6-11.3); RBC Red Blood Cell Count 4.05 M/uL (3.86-4.86)
[2021-05-15 19:54] LABS: Albumin 3.1 g/dL (3.4-5.0); Bilirubin Total 0.5 mg/dL (0.2-1.0); Potassium 4.3 mmol/L (3.5-5.1); Protein, Total 7.7 g/dL (6.4-8.2); Uric Acid 11.4 mg/dL (2.6-6.0)
[2021-05-15 20:05] LABS: Blood Morphology Comment NOT SEEN (NOT SEEN); Platelet Estimate ADEQ; White Blood Cell Scan OK (OK)
--- NOTE | 2021-05-15 20:11 | ER ---
Nurse's Notes [facility] Name: Bebeto White Age: 75 yrs Sex: Female : 1945 Arrival Date: 05/15/2021 Time: 16:58 Bed 27 Private MD: Diagnosis: Gout, unspecified;Elevated white blood cell count;Cellulitis and acute lymphangitis of other parts of limb-RIGHT INDEX FINGER S/P I AND D;COPD/ Chronic obstructive pulmonary disease, unspecified Presentation: 05/15 17:34 Chief complaint: Spouse and/or significant other states: Swelling, redness pain to kg middle finger right hand x 4 days, Leonrado feet pain, weakness. Coronavirus screen: Client denies travel out of the [place] in the last 14 days. At this time, unable to obtain information related to travel outside the [place] At this time, the client does not indicate any symptoms associated with coronavirus-19. Ebola Screen: Patient negative for fever greater than or equal to 101.5 degrees Fahrenheit, and additional compatible Ebola Virus Disease symptoms Patient denies exposure to infectious person. Patient denies travel to an Ebola-affected area in the 21 days before illness onset. Initial Sepsis Screen: Does the patient meet any 2 criteria? No. Patient's initial sepsis screen is negative. Does the patient have a suspected source of infection? Yes: Skin breakdown/wound. Risk Assessment: Do you want to hurt yourself or someone else? Patient reports no desire to harm self or others. Onset of symptoms was May 11, 2021. 17:34 Method Of Arrival: Wheelchair kg 17:34 Acuity: ROLF 3 kg Historical: - Allergies: 17:38 myacin; kg 17:38 Protonix; kg 17:38 BuSpar; kg - Home Meds: 17:38 diltiazem HCl 90 mg Oral tab twice a day [Active]; flecainide 50 mg Oral tab every 12 kg hours [Active]; furosemide 40 mg Oral tab 2 times per day [Active]; spironolactone 100 mg Oral tab 1 tab once daily [Active]; clonazepam 1 mg Oral tab as needed [Active]; Creon 36,000-114,000- 180,000 unit Oral cpDR 4x per day [Active]; hydralazine 50 mg Oral tab three times a day [Active]; Pepcid Oral [Active]; sertraline 100 mg Oral tab twice a day [Active]; tramadol 50 mg Oral tab as needed [Active]; Zofran Oral [Active]; Zoloft Oral [Active]; mirtazapine 30 mg Oral TbDi 1 tab once daily [Active]; prednisone 10 mg Oral tab 1 tab 2 times per day [Active]; Daliresp oral [Active]; - PMHx: 17:38 COPD; dumping syndrome; Endometrosis; fatty liver; Hepatitis B; Hernia; Hypertension; kg Hypokalemia; ibs; Kidney stones; Migraines; Pancreatic problem; CA Small squamous cell left lung; - PSHx: 17:38 Intestinal bypass; Lobectomy of left lung; kg - Immunization history:: Adult Immunizations up to date, Client reports receiving the 2nd dose of the Covid vaccine, Date received: October 2020 [facility] Client reports receiving the 1st dose of the Covid vaccine, September 2020 [facility]. - Social history:: Smoking status: Patient denies any tobacco usage or history of. Screenin:32 Abuse screen: Denies threats or abuse. Denies injuries from another. Nutritional zb screening: No deficits noted. Tuberculosis screening: No symptoms or risk factors identified. Fall Risk No fall in past 12 months (0 pts). Secondary diagnosis (15 points) impaired mobility, IV access (20 points). Ambulatory Aid- None/Bed Rest/Nurse Assist (0 pts). Gait- Normal/Bed Rest/Wheelchair (0 pts) Mental Status- Oriented to own ability (0 pts). Total Howard Fall Scale indicates Low Risk Score (25-44 pts). Fall prevention measures have been instituted. Side Rails Up X 2 Placed close to Nursing Station Frequent Obs/Assesments occuring As available Patient and Family Educated on Fall Prevention Program and strategies. Assessment: 19:33 General: Appears in no apparent distress. Behavior is cooperative, anxious, fussy. zb Pain: Complains of pain in right hand and left foot Pain currently is 9 out of 10 on a pain scale. Quality of pain is described as aching, Pain began 1 day ago. Neuro: Level of Consciousness is awake, alert, obeys commands, Oriented to person, place, time, situation. Respiratory: Airway is patent Respiratory effort is even, unlabored, Respiratory pattern is regular, Breath sounds with wheezes bilaterally. the patient has moderate shortness of breath. GI: Bowel sounds present X 4 quads. Reports nausea, vomiting. Derm:. Musculoskeletal: Range of motion: limited in PIP of right ring finger, left foot Swelling present in right middle fingernail and dorsal aspect of distal phalanx of right middle finger. 19:33 Derm: Skin is red, right middle finger. zb 20:00 Reassessment: Patient appears in no apparent distress at this time. c/o nausea. zb notified ecp. medication ordered and given. Reassessment: Patient appears in no apparent distress at this time. 21:20 Reassessment: Patient appears in no apparent distress at this time. Patient and/or zb family updated on plan of care and expected duration. Pain level reassessed. Patient is alert, oriented x 3, equal unlabored respirations, skin warm/dry/pink. wound dressing wrapped with gauze. discussed d/c instructions. Vital Signs: 17:34 BP 115 / 54; Pulse 64; Resp 20; Temp 99.5(O); Pulse Ox 100% on 4 lpm NC; Weight 69.4 kg kg (R); Height 5 ft. 0 in. (152.40 cm) (R); Pain 10/10; 19:38 BP 112 / 79; Pulse 118; Resp 20; Pulse Ox 100% on 4 lpm NC; zb 20:20 BP 135 / 76; Pulse 100; Resp 16; Pulse Ox 100% on 4 lpm NC; zb 17:34 Body Mass Index 29.88 (69.40 kg, 152.40 cm) kg ED Course: 16:58 Patient arrived in ED. as 17:38 Triage completed. kg 17:54 Pranav Fink PA is PHCP. jmm 17:54 Ronni Hernandes MD is Attending Physician. jmm 18:31 Sharon Jensen RN is Primary Nurse. zb 18:46 Foot Left 3 View XRAY In Process Unspecified. EDMS 18:47 Hand Right 3 View XRAY In Process Unspecified. EDMS 19:38 Inserted saline lock: 20 gauge in left antecubital area, using aseptic technique. Blood zb collected. 20:00 Patient has correct armband on for positive identification. Bed in low position. Call zb light in reach. Side rails up X 1. Pulse ox on. NIBP on. Door closed. Noise minimized. 20:00 Arm band placed on. zb 20:09 Donny Carreno MD is Referral Physician. brianna 20: Naif Alva MD is Referral Physician. brianna 20:30 Assist provider with I \T\ D: of an abscess on right right middle finger Set up I\T\D tray. zb Performed by Ronni Hernandes MD Culture sent to lab. Dressing with Neosporin and 4X4s, tape Patient tolerated well. 21:40 IV discontinued, intact, bleeding controlled, No redness/swelling at site. Pressure zb dressing applied. Administered Medications: 19:30 Drug: Colcrys (colchicine) 1.2 mg Route: PO; zb 20:00 Follow up: Response: No adverse reaction zb 19:30 Drug: Ancef (cefazolin) 1 grams Route: IVPB; Site: left antecubital; zb 20:00 Follow up: Response: No adverse reaction; IV Status: Completed infusion; IV Intake: 10mlzb 19:30 Drug: KeFLEX (cephalexin) 500 mg Route: PO; zb 21:00 Follow up: Response: No adverse reaction zb 19:30 Drug: morphine 2 mg Route: IVP; Site: left antecubital; zb 20:00 Follow up: Response: No adverse reaction zb 19:30 Drug: Zofran (Ondansetron) 4 mg Route: IVP; Site: left antecubital; zb 20:00 Follow up: Response: No adverse reaction; Nausea is decreased zb 19:31 Drug: NS 0.9% 500 ml Route: IV; Rate: bolus; Site: left antecubital; zb 20:00 Follow up: Response: No adverse reaction; IV Status: Completed infusion; IV Intake: zb 500ml 19:57 Not Given (Duplicate Order): Lidocaine (1 %) 5 mg Infiltration once brianna 19:57 Not Given (Duplicate Order): Bupivacaine (0.5 %) 5 ml 10 ml Infiltration once brianna 20:43 Drug: Xopenex (levalbuterol) 2.5 mg Route: Inhalation; zb 21:00 Follow up: Response: No adverse reaction zb 20:43 Drug: AtroVENT (ipratropium) Aerosol 0.5 mg Route: Inhalation; zb 21:00 Follow up: Response: No adverse reaction; Marked relief of symptoms zb 20:44 Drug: Motrin (ibuprofen) 200 mg Route: PO; zb 21:00 Follow up: Response: No adverse reaction zb 20:44 Drug: predniSONE 20 mg Route: PO; zb 21:00 Follow up: Response: No adverse reaction zb 20:44 Drug: Zofran (Ondansetron) 4 mg Route: IVP; Site: left antecubital; zb 21:00 Follow up: Response: No adverse reaction zb 20:44 Drug: Bactroban (mupirocin) Ointment 2 % 1 application Route: Topical; Site: affected zb area; 21:00 Follow up: Response: No adverse reaction zb 21:08 Drug: SOLU-Medrol (methylPrednisoLONE) 125 mg Route: IVP; Site: left antecubital; zb 21:30 Follow up: Response: No adverse reaction zb 21:09 Drug: Colcrys (colchicine) 0.6 mg Route: PO; zb 21:22 Follow up: Response: No adverse reaction zb Intake: 20:00 IV: 10ml; Total: 10ml. zb 20:00 IV: 500ml; Total: 510ml. zb Outcome: 20:10 Discharge ordered by MD. reed 21:40 Discharged to home via wheelchair, with family. zb 21:40 Condition: stable 21:40 Discharge instructions given to patient, Instructed on discharge instructions, follow up and referral plans. medication usage, Demonstrated understanding of instructions, follow-up care, medications, Prescriptions given X X5 21:43 Patient left the ED. zb Signatures: Dispatcher [employer] EDMS Ronni Hernandes MD MD cha Mickail, Joel, PA PA jmm Martinez, Amelia as Brown, Zipporah, RN RN zb Graham, Kristen, RN RN kg Corrections: (The following items were deleted from the chart) 17:48 17:38 Allergies: Hydrocodone-Acetaminophen; kg kg 05/16 00:36 08 19:33 Musculoskeletal: Range of motion: limited in PIP of right ring finger, left zb foot Swelling present in right ring finger zb
--- NOTE | 2021-05-15 20:11 | EDPHYS ---
Physician Documentation [facility] Name: Bebeto White Age: 75 yrs Sex: Female : 1945 Arrival Date: 05/15/2021 Time: 16:58 Bed 27 Private MD: KURT Physician Ronni Hernandes HPI: 05/15 19:50 This 75 yrs old Female presents to ER via Wheelchair with complaints of brianna Weakness, Insect Bite. Historical: - Allergies: 17:38 myacin; kg 17:38 Protonix; kg 17:38 BuSpar; kg - Home Meds: 17:38 diltiazem HCl 90 mg Oral tab twice a day [Active]; flecainide 50 mg Oral tab every 12 kg hours [Active]; furosemide 40 mg Oral tab 2 times per day [Active]; spironolactone 100 mg Oral tab 1 tab once daily [Active]; clonazepam 1 mg Oral tab as needed [Active]; Creon 36,000-114,000- 180,000 unit Oral cpDR 4x per day [Active]; hydralazine 50 mg Oral tab three times a day [Active]; Pepcid Oral [Active]; sertraline 100 mg Oral tab twice a day [Active]; tramadol 50 mg Oral tab as needed [Active]; Zofran Oral [Active]; Zoloft Oral [Active]; mirtazapine 30 mg Oral TbDi 1 tab once daily [Active]; prednisone 10 mg Oral tab 1 tab 2 times per day [Active]; Daliresp oral [Active]; - PMHx: 17:38 COPD; dumping syndrome; Endometrosis; fatty liver; Hepatitis B; Hernia; Hypertension; kg Hypokalemia; ibs; Kidney stones; Migraines; Pancreatic problem; CA Small squamous cell left lung; - PSHx: 17:38 Intestinal bypass; Lobectomy of left lung; kg - Immunization history:: Adult Immunizations up to date, Client reports receiving the 2nd dose of the Covid vaccine, Date received: October 2020 Modify Client reports receiving the 1st dose of the Covid vaccine, September 2020 Modify. - Social history:: Smoking status: Patient denies any tobacco usage or history of. ROS: 19:50 Constitutional: Negative for fever, chills, and weight loss, Eyes: Negative for injury, brianna pain, redness, and discharge, ENT: Negative for injury, pain, and discharge, Neck: Negative for injury, pain, and swelling, Cardiovascular: Negative for chest pain, palpitations, and edema, Respiratory: Negative for shortness of breath, cough, wheezing, and pleuritic chest pain, Abdomen/GI: Negative for abdominal pain, nausea, vomiting, diarrhea, and constipation, Back: Negative for injury and pain, : Negative for injury, bleeding, discharge, and swelling, Skin: Negative for injury, rash, and discoloration, Neuro: Negative for headache, weakness, numbness, tingling, and seizure, Psych: Negative for depression, anxiety, suicide ideation, homicidal ideation, and hallucinations, Allergy/Immunology: Negative for hives, rash, and allergies, Endocrine: Negative for neck swelling, polydipsia, polyuria, polyphagia, and marked weight changes, Hematologic/Lymphatic: Negative for swollen nodes, abnormal bleeding, and unusual bruising. 19:50 MS/extremity: Positive for pain, of the dorsal aspect of distal phalanx of right middle finger and right middle fingernail, left foot, left MCP. Exam: 19:58 Constitutional: This is a well developed, well nourished patient who is awake, alert, brianna and in no acute distress. Head/Face: Normocephalic, atraumatic. Eyes: Pupils equal round and reactive to light, extra-ocular motions intact. Lids and lashes normal. Conjunctiva and sclera are non-icteric and not injected. Cornea within normal limits. Periorbital areas with no swelling, redness, or edema. ENT: Nares patent. No nasal discharge, no septal abnormalities noted. Tympanic membranes are normal and external auditory canals are clear. Oropharynx with no redness, swelling, or masses, exudates, or evidence of obstruction, uvula midline. Mucous membranes moist. Neck: Trachea midline, no thyromegaly or masses palpated, and no cervical lymphadenopathy. Supple, full range of motion without nuchal rigidity, or vertebral point tenderness. No Meningismus. Chest/axilla: Normal chest wall appearance and motion. Nontender with no deformity. No lesions are appreciated. Cardiovascular: Regular rate and rhythm with a normal S1 and S2. No gallops, murmurs, or rubs. Normal PMI, no JVD. No pulse deficits. Respiratory: Lungs have equal breath sounds bilaterally, clear to auscultation and percussion. No rales, rhonchi or wheezes noted. No increased work of breathing, no retractions or nasal flaring. Abdomen/GI: Soft, non-tender, with normal bowel sounds. No distension or tympany. No guarding or rebound. No evidence of tenderness throughout. Back: No spinal tenderness. No costovertebral tenderness. Full range of motion. Skin: Warm, dry with normal turgor. Normal color with no rashes, no lesions, and no evidence of cellulitis. Neuro: Awake and alert, GCS 15, oriented to person, place, time, and situation. Cranial nerves II-XII grossly intact. Motor strength 5/5 in all extremities. Sensory grossly intact. Cerebellar exam normal. Normal gait. Psych: Awake, alert, with orientation to person, place and time. Behavior, mood, and affect are within normal limits. 19:58 Musculoskeletal/extremity: ROM: limited active range of motion due to pain, limited passive range of motion due to pain, Circulation is intact in all extremities. Sensation intact. Compartment Syndrome exam of affected extremity: is normal. Weight bearing: able to fully bear weight, DVT Exam: negative Homans' sign noted on exam, no appreciated bluish discoloration, pain, swelling, tenderness, erythema, increased warmth, that is mild, of the dorsal aspect of distal phalanx of right middle finger, LEFT GREAT TOE, MCP RED , TENDER. Vital Signs: 17:34 BP 115 / 54; Pulse 64; Resp 20; Temp 99.5(O); Pulse Ox 100% on 4 lpm NC; Weight 69.4 kg kg (R); Height 5 ft. 0 in. (152.40 cm) (R); Pain 10/10; 19:38 BP 112 / 79; Pulse 118; Resp 20; Pulse Ox 100% on 4 lpm NC; zb 20:20 BP 135 / 76; Pulse 100; Resp 16; Pulse Ox 100% on 4 lpm NC; zb 17:34 Body Mass Index 29.88 (69.40 kg, 152.40 cm) kg Procedures: 20:04 I \T\ D: Incision and drainage was performed for an abscess of the right dorsal aspect of brianna distal phalanx of right middle finger Prepped with Betadine, Anesthetized with nothing. Incised with #11 blade. Drained moderate amount purulent fluid. GOUTY MATERIAL Cultures obtained. Dressing: non-Adherent dressing, the patient tolerated the procedure well. 20:07 RING CUT OFF WITH CAR SICCORS. [facility] MDM: 18:03 Patient medically screened. [facility] 20:01 Differential diagnosis: closed fracture, contusion, tendonitis, sprain. Data reviewed: [facility] vital signs, nurses notes, lab test result(s), radiologic studies. Data interpreted: monitoring and evaluation advisor: rate is 118 beats/min, rhythm is regular, Pulse oximetry: on room air is 100 %. Test interpretation: by ED physician or midlevel provider: plain radiologic studies. Counseling: I had a detailed discussion with the patient and/or guardian regarding: the historical points, exam findings, and any diagnostic results supporting the discharge/admit diagnosis, lab results, radiology results, the need for outpatient follow up, for definitive care, an dividing machine operator helper, a orthopedic surgeon, a cryolite recovery operator. 05/15 18:12 Order name: CBC with Diff [facility] 05/15 18:12 Order name: Comprehensive Metabolic Panel; Complete Time: 19:56 [facility] 05/15 18:12 Order name: Uric Acid; Complete Time: 19:56 [facility] 05/15 18:13 Order name: CBC with Automated Diff; Complete Time: 20:06 [facility] 05/15 20:05 Order name: CBC Smear Scan; Complete Time: 20:06 [facility] 05/15 20:32 Order name: Wound Culture 05/15 18:12 Order name: Foot Left 3 View XRAY [facility] 05/15 18:12 Order name: Hand Right 3 View XRAY [facility] 05/15 20:32 Order name: Wound Culture [facility] 05/15 18:22 Order name: Suture Tray at Bedside; Complete Time: 18:45 [facility] Administered Medications: 19:30 Drug: Colcrys (colchicine) 1.2 mg Route: PO; zb 20:00 Follow up: Response: No adverse reaction zb 19:30 Drug: Ancef (cefazolin) 1 grams Route: IVPB; Site: left antecubital; zb 20:00 Follow up: Response: No adverse reaction; IV Status: Completed infusion; IV Intake: 10mlzb 19:30 Drug: KeFLEX (cephalexin) 500 mg Route: PO; zb 21:00 Follow up: Response: No adverse reaction zb 19:30 Drug: morphine 2 mg Route: IVP; Site: left antecubital; zb 20:00 Follow up: Response: No adverse reaction zb 19:30 Drug: Zofran (Ondansetron) 4 mg Route: IVP; Site: left antecubital; zb 20:00 Follow up: Response: No adverse reaction; Nausea is decreased zb 19:31 Drug: NS 0.9% 500 ml Route: IV; Rate: bolus; Site: left antecubital; zb 20:00 Follow up: Response: No adverse reaction; IV Status: Completed infusion; IV Intake: zb 500ml 19:57 Not Given (Duplicate Order): Lidocaine (1 %) 5 mg Infiltration once brianna 19:57 Not Given (Duplicate Order): Bupivacaine (0.5 %) 5 ml 10 ml Infiltration once brianna 20:43 Drug: Xopenex (levalbuterol) 2.5 mg Route: Inhalation; zb 21:00 Follow up: Response: No adverse reaction zb 20:43 Drug: AtroVENT (ipratropium) Aerosol 0.5 mg Route: Inhalation; zb 21:00 Follow up: Response: No adverse reaction; Marked relief of symptoms zb 20:44 Drug: Motrin (ibuprofen) 200 mg Route: PO; zb 21:00 Follow up: Response: No adverse reaction zb 20:44 Drug: predniSONE 20 mg Route: PO; zb 21:00 Follow up: Response: No adverse reaction zb 20:44 Drug: Zofran (Ondansetron) 4 mg Route: IVP; Site: left antecubital; zb 21:00 Follow up: Response: No adverse reaction zb 20:44 Drug: Bactroban (mupirocin) Ointment 2 % 1 application Route: Topical; Site: affected zb area; 21:00 Follow up: Response: No adverse reaction zb 21:08 Drug: SOLU-Medrol (methylPrednisoLONE) 125 mg Route: IVP; Site: left antecubital; zb 21:30 Follow up: Response: No adverse reaction zb 21:09 Drug: Colcrys (colchicine) 0.6 mg Route: PO; zb 21:22 Follow up: Response: No adverse reaction zb Disposition Summary: 05/15/21 20:10 Discharge Ordered Location: Home brianna Problem: new brianna Symptoms: have improved brianna Condition: Stable brianna Diagnosis - Gout, unspecified brianna - Elevated white blood cell count brianna - Cellulitis and acute lymphangitis of other parts of limb - RIGHT INDEX FINGER S/P I brianna AND D - COPD/ Chronic obstructive pulmonary disease, unspecified brianna Followup: brianna - With: Private Physician - When: 2 - 3 days - Reason: Recheck today's complaints, Continuance of care, Re-evaluation by your physician Followup: brianna - With: Donny Carreno MD - When: 2 - 3 days - Reason: Recheck today's complaints, Re-evaluation by your physician Followup: brianna - With: Naif Alva MD - When: 2 - 3 days - Reason: Recheck today's complaints, Re-evaluation by your physician Discharge Instructions: - Discharge Summary Sheet brianna - Cellulitis, Adult brianna - Chronic Bronchitis, Adult brianna - Chronic Obstructive Pulmonary Disease brianna - Gout brianna - Chronic Obstructive Pulmonary Disease, [id number] brianna - Cellulitis, Adult, Cbcw-tu-[id number] brianna - Gout, Jbqt-rh-[id number] brianna - Cough, Adult brianna Forms: - Medication Reconciliation Form brianna - Thank You Letter brianna - Antibiotic Education brianna - Prescription Opioid Use [facility] Prescriptions: - acetaminophen-codeine 300-15 mg Oral tablet - take 2 tablet by ORAL route every 4-6 hours; 15 tablet; Refills: 0, Product brianna Selection Permitted - albuterol sulfate 90 mcg/actuation Inhalation HFA aerosol inhaler - inhale 2 puff by INHALATION route every 4-6 hours; 1 Pump; Refills: 0, Product brianna Selection Permitted - colchicine 0.6 mg Oral tablet - take 1 tablet by ORAL route every 2 hours; 3 tablet; Refills: 0, Product brianna Selection Permitted - indomethacin 25 mg Oral capsule - take 1 capsule by ORAL route 3 times per day for 7 days; 21 capsule; Refills: brianna 0, Product Selection Permitted - Cephalexin 500 mg Oral Capsule - take 1 capsule by ORAL route every 6 hours for 10 days; 40 capsule; Refills: 0, [facility] Product Selection Permitted - Prednisone 20 mg Oral Tablet - take 2 tablets by ORAL route once daily for 5 days; 10 tablet; Refills: 0, [facility] Product Selection Permitted Signatures: Dispatcher [employer] Ronni Cannon MD MD cha Brown, Zipporah, RN RN Katia Ortiz, RN RN kg Corrections: (The following items were deleted from the chart) 17:48 17:38 Allergies: Hydrocodone-Acetaminophen; kg kg 20: 20:00 Differential diagnosis: tendonitis, sprain, arthritis, gout, cellulitis, brianna [facility] 20: 20:00 Data reviewed: vital signs, nurses notes, lab test result(s), radiologic studies, [facility] plain films, [facility] : 20:00 Data interpreted: monitoring and evaluation advisor: rate is 118 beats/min, rhythm is regular, [facility] Pulse oximetry: on room air is 100 %. [facility] : 20:00 Test interpretation: by ED physician or midlevel provider: ECG, plain radiologic [facility] studies, [facility] : 20:00 Counseling: I had a detailed discussion with the patient and/or guardian [facility] regarding: the historical points, exam findings, and any diagnostic results supporting the discharge/admit diagnosis, lab results, radiology results, the need for outpatient follow up, for definitive care, an dividing machine operator helper, a orthopedic surgeon, a cryolite recovery operator, [facility]
--- NOTE | 2021-05-15 20:51 | RAD REPORT ---
EXAM DESCRIPTION: RAD - Foot Left 3 View - 05/15/2021 6:46 pm CLINICAL HISTORY: PAIN COMPARISON: <Comparisons> FINDINGS: No fracture, dislocation or periosteal reaction. No acute or destructive bony process. Soft tissue edema of the mid and distal left foot is present. No air or foreign body in the soft tiss ues. IMPRESSION: Soft tissue swelling with no air or foreign body identified. No acute or destructive bone process.
--- NOTE | 2021-05-15 20:53 | RAD REPORT ---
EXAM DESCRIPTION: RAD - Hand Right 3 View - 05/15/2021 6:47 pm CLINICAL HISTORY: PAIN COMPARISON: No comparison FINDINGS: No fracture is identified. There is no dislocation or periosteal reaction noted. Advanced degenerative change present at the trapezium first metacarpal articulation. Patient has significant degenerative change at the second- fourth PIP joints with moderate degenerative change in the other I P joints. No pathologic or destructive bone process. Soft tissue swelling present around the right th ird digit. No air or foreign body in the soft tissues. IMPRESSION: Right third digit soft tissue swelling with no air or foreign body. Advanced IP joint degenerative change as detailed. No acute or destructive bone finding.
[2021-05-15] MEDS ORDERED: predniSONE 20 MG TAB ONE (20:59)
[2021-05-15] MEDS ORDERED: MUPIROCIN 2% OINT 22GM TUBE TOP ONE (20:59)
[2021-05-15] MEDS ORDERED: IBUPROFEN 200 MG TAB PO ONE (20:59)
[2021-05-15] MEDS ORDERED: LEVALBUTEROL 1.25 MG/3 ML NEB ONE (20:59)
[2021-05-15] MEDS ORDERED: IPRATROPIUM BROM 0.5MG/2.5ML ONE (20:59)
[2021-05-15] MEDS ORDERED: METHYLPREDNISOLONE 125 MG INJ ONE (21:27)
[2021-05-15 21:56] VITALS: BP 112/79; O2SAT 100
[2021-05-15 21:57] VITALS: TEMP 99.5
== END 2021-05-15 21:43 | disposition home or self-care (01) ==
LOC: ER 16:42
PROC: 0H9FXZZ Drainage of Right Hand Skin, External Approach (ICD-10-PCS; principal; 2021-05-15)
DX: L03.011 Cellulitis of right finger (principal); M10.9 Gout, unspecified; D72.829 Elevated white blood cell count, unspecified; L03.021 Acute lymphangitis of right finger; J44.9 Chronic obstructive pulmonary disease, unspecified; I10 Essential (primary) hypertension; Z88.8 Allergy status to other drugs, medicaments and biological substances
CPT/HCPCS: 96365; 87070; 85025; 36415; 87205; 84550; 80053; 73130; 73630; 96375; 99284; 26010; J2270; J0690; J7040; J2930; J2405 ×2; J7512

== ENCOUNTER 2021-07-21 20:31 | Emergency (ER) | payer OTHER ==
[2021-07-21] MEDS ORDERED: METHYLPREDNISOLONE 40 MG INJ ONE (21:45)
[2021-07-21 21:46] LABS: Absolute Lymphocytes (CBC) 0.5 K/uL (0.7-4.9); Basophils % 0.2 % (0-1.3); Hematocrit 23.7 % (36.0-45.0); Lymphocytes % 5.5 % (15.3-44.8); RBC Red Blood Cell Count 3.14 M/uL (3.86-4.86)
[2021-07-21 21:47] LABS: Protime INR 0.99
[2021-07-21 22:12] LABS: Anisocytosis 1+; Blood Morphology Comment NOTED (NOT SEEN); Elliptocytes 1+; Platelet Estimate ADEQ; Poikilocytosis 1+; Stomatocytes 1+; Teardrop Cell 1+
[2021-07-21 22:25] LABS: ALT/SGPT 26 U/L (12-78); AST/SGOT 21 U/L (15-37); Albumin 2.9 g/dL (3.4-5.0); Alkaline Phosphatase 65 U/L (45-117); BUN Blood Urea Nitrogen 35 mg/dL (7-18); Bicarbonate 26 mmol/L (21-32); Bilirubin Direct < 0.1 mg/dL (0-0.2); Bilirubin Total 0.1 mg/dL (0.2-1.0); Glucose Level 146 mg/dL (74-106); Magnesium 2.1 mg/dL (1.8-2.4); NT PRO-BNP 1474 pg/mL (<450); Sodium Level 146 mmol/L (136-145); Troponin (Emerg Dept Use Only) 0.04 ng/mL (0.0-0.045)
--- NOTE | 2021-07-22 00:48 | ER ---
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 Coronavirus screen: Vaccine status: Patient reports receiving the 2nd dose of the covid vaccine. Date May 25, 2021 Client denies travel out of the [place] in the last 14 days. At this time, the client does not indicate any symptoms associated with coronavirus-19. Ebola Screen: Patient negative for fever greater than or equal to 101.5 degrees Fahrenheit, and additional compatible Ebola Virus Disease symptoms. Initial Sepsis Screen: Does the patient meet any 2 criteria? No. Patient's initial sepsis screen is negative. Risk Assessment: Do you want to hurt yourself or someone else? Patient reports no desire to harm self or others. Onset of symptoms was July 21, 2021 at 19:30. 20:26 Method Of Arrival: EMS: [facility] 20:26 Method Of Arrival: EMS: [facility] 20:26 Acuity: ROLF 2 cc4 20:26 Initial Sepsis Screen: Does the patient have a suspected source of infection? No. cc4 Patient's initial sepsis screen is negative. Triage Assessment: 20:26 General: Appears distressed, Anxious. Behavior is agitated, anxious, crying. Pain: cc4 Denies pain. EENT: No deficits noted. Eyes clear. Nares. 20:26 Cardiovascular: Denies chest pain, Capillary refill < 3 seconds Rhythm is sinus cc4 tachycardia with unifocal PVCs. Respiratory: Reports shortness of breath Airway is patent Respiratory effort is even, labored, Respiratory pattern is regular, Audible wheezing noted; EMS reports giving albuterl treatment enroute; O2 intact \\T\\ 3L/NBP; O2 sat 99%; reports having left lower lung lobectomy 2.5 years ago for "small cell lung cancer". 20:26 Neuro: Level of Consciousness is awake, alert, obeys commands, Oriented to person, cc4 place, time, situation, Admissions Evaluator are equal bilaterally. GI: No deficits noted. No signs and/or symptoms were reported involving the gastrointestinal system. Abdomen is obese, Bowel sounds present X 4 quads. Abd is soft and non tender X 4 quads. : Reports recently treated for UTI; denies burning or urgency at present time. Derm: No deficits noted. Skin is intact. Musculoskeletal: Reports weakness in left arm reports falling "2-3 weeks ago with crack in humerus" sling intact left arm; double lumen saline lock intact right FA with no s/sx's of infection/infiltration noted # 20 g placed per EMS. 20:26 Respiratory: Airway is patent Respiratory effort is unlabored, Respiratory pattern is cc4 symmetrical, the patient has moderate shortness of breath. Historical: - Allergies: 07/22 00:10 Ibuprofen; cc4 00:10 BuSpar; cc4 00:10 Tylenol-Codeine; cc4 07/21 20:26 myacins; cc4 20:26 Tylenol; cc4 - PMHx: 20:26 Chronic obstructive lung disease; History of urinary tract infection; lung cancer with cc4 left lower lobectomy; fracture left humerus; Anxiety; - Immunization history:: Adult Immunizations unknown, Client reports receiving the 2nd dose of the Covid vaccine, Date received: May 25, 2021. - Social history:: Patient/guardian denies using tobacco products, x4-5 years, Smoking status: Patient/guardian denies using tobacco products. - Family history:: not pertinent. - Code Status:: DNR. - Coronavirus screen:: The patient has NOT traveled to [place] in the past 14 days. The patient has NOT had contact with known/suspected case of Coronavirus?. - Ebola Screening: : Patient negative for fever greater than or equal to 101.5 degrees Fahrenheit, and additional compatible Ebola Virus Disease symptoms No symptoms or risks identified at this time. Screenin:26 Abuse screen: Denies threats or abuse. Nutritional screening: No deficits noted. cc4 Tuberculosis screening: No symptoms or risk factors identified. Fall Risk Fall in past 12 months (25 points). Assessment: 20:26 Respiratory: Airway is patent Respiratory effort is labored, Respiratory pattern is cc4 symmetrical, Breath sounds with wheezes. Vital Signs: 20:26 BP 153 / 74; Pulse 101; Resp 20; Temp 98.8; Pulse Ox 99% on 3 lpm NC; cc4 20:26 BP 153 / 74; Pulse 101; Resp 20; Temp 98.8; Pulse Ox 99% on 3 lpm NC; cc4 21:00 BP 132 / 43; Pulse 99; Resp 20; Pulse Ox 96% on 2 lpm NC; cc4 22:00 BP 136 / 45; Pulse 95; Resp 22; Pulse Ox 99% on 2 lpm NC; cc4 23:00 BP 136 / 47; Pulse 100; Resp 20; Pulse Ox 98% on 2 lpm NC; cc4 07/22 00:00 BP 138 / 55; Pulse 101; Resp 20; Temp 98.2; Pulse Ox 97% on 2 lpm NC; cc4 01:10 BP 116 / 89; Pulse 115; Resp 24; Temp 98.1; Pulse Ox 91% on R/A; cc4 ED Course: 07/21 20:26 Arm band placed on. EKG completed in triage. Results shown to MD. EKG done per 4 protocol. Labs ordered per protocol. Drawn by ED staff. 20:26 Patient has correct armband on for positive identification. Bed in low position. Call cc4 light in reach. Side rails up X2. Adult w/ patient. 20:32 Patient arrived in ED. cf2 20:36 Desire Romo, KIANNA is Primary Nurse. cc4 20:45 Ronni Olson PA is PHCP. cp 20:45 Vu Nice MD is Attending Physician. cp 21:12 Triage completed. cc4 21:37 Basic Metabolic Panel Sent. cc4 21:37 CBC with Automated Diff Sent. cc4 21:37 Influenza Screen (a \\T\\ B) Sent. cc4 21:37 Basic Metabolic Panel Sent. cc4 21:37 CBC with Diff Sent. cc4 21:37 LFT's Sent. cc4 21:37 Magnesium Sent. cc4 21:37 NT PRO-BNP Sent. cc4 21:37 PT-INR Sent. cc4 21:38 Troponin (emerg Dept Use Only) Sent. cc4 07/22 01:10 No provider procedures requiring assistance completed. cc4 Administered Medications: 07/21 21:20 Drug: SOLU-Medrol (methylPrednisoLONE) 80 mg Route: IVP; Site: right wrist; cc4 22:00 Follow up: Response: No adverse reaction; Wheezing diminished cc4 07/22 00:21 CANCELLED (Physician Discretion): Lasix (furosemide) 20 mg IVP once; give over 2 minutescp 00:42 CANCELLED (Physician Discretion): Potassium Effervescent Tablet 50 mEq PO once; cp dissolve in 4 ounces of water or juice 00:46 CANCELLED (Physician Discretion): Potassium Chloride 40 mEq PO once cp 00:55 Drug: Ativan (LORazepam) 0.5 mg Route: IVP; Site: right forearm; cc4 01:10 Follow up: Response: No adverse reaction cc4 00:55 Drug: Potassium Effervescent Tablet 50 mEq Route: PO; cc4 01:10 Follow up: Response: No adverse reaction cc4 01:02 Not Given (Patient Refused): Xopenex (levalbuterol) (3) 1.25 mg Inhalation once cc4 Outcome: 01:10 AMA AMA form signed cc4 01:10 Condition: improved 01:10 Instructed on Risks of AMA Demonstrated understanding of instructions. 01:24 Patient left the ED. cc4 Signatures: Dispatcher [employer] EDMS Ronni Olson PA PA cp Frazier, Celesta cf2 Desire Romo RN RN cc4 Corrections: (The following items were deleted from the chart) 07/21 21:27 21:26 In radiology for Chest Single View+RAD.RAD.BRZ. EDMS EDMS 21:27 21:18 To radiology for Chest Single View+RAD.RAD.BRZ. cc4 EDMS 21:54 21:37 CORONAVIRUS+MR.LAB.BRZ drawn and sent. cc4 EDMS 23:44 20:26 PMHx: Chronic obstructive lung disease; cc4 cc4 23:44 20:26 PMHx: History of urinary tract infection; cc4 cc4 07/22 00:00 07/21 20:26 Code Status: Full code cc4 cc4 10/29 00:10 10/28 20:26 Allergies: BuSpar [Inactive]; cc4 cc4 07/22 00:07/21 20:26 Allergies: myacin [Inactive]; cc4 cc4 07/22 00:07/21 20:26 Allergies: Protonix [Inactive]; cc4 cc4 07/22 00:07/21 20:26 Allergies: Tylenol-Codeine [Inactive]; cc4 cc4 07/22 00:07/21 20:26 Allergies: Ibuprofen [Inactive]; cc4 cc4 07/22 00:07/21 20:26 Allergies: Tylenol [Inactive]; cc4 cc4 07/22 00:07/21 20:26 PMHx: Carcinoma in situ of lung; cc4 cc4
--- NOTE | 2021-07-22 00:48 | EDPHYS ---
Physician Documentation [facility] Name: Bebeto White Age: 75 yrs Sex: Female : 1945 Arrival Date: 07/21/2021 Time: 20:32 Bed 17 Private MD: ED Physician Vu Nice HPI: 07/21 21:10 This 75 yrs old Female presents to ER via EMS with complaints of Breathing cp Difficulty. 21:10 The patient has shortness of breath at rest. cp Historical: - Allergies: 07/22 00:10 Ibuprofen; cc4 00:10 BuSpar; cc4 00:10 Tylenol-Codeine; cc4 07/21 20:26 myacins; cc4 20:26 Tylenol; cc4 - PMHx: 20:26 Chronic obstructive lung disease; History of urinary tract infection; lung cancer with cc4 left lower lobectomy; fracture left humerus; Anxiety; - Immunization history:: Adult Immunizations unknown, Client reports receiving the 2nd dose of the Covid vaccine, Date received: May 25, 2021. - Social history:: Patient/guardian denies using tobacco products, x4-5 years, Smoking status: Patient/guardian denies using tobacco products. - Family history:: not pertinent. - Code Status:: DNR. - Coronavirus screen:: The patient has NOT traveled to [place] in the past 14 days. The patient has NOT had contact with known/suspected case of Coronavirus?. - Ebola Screening: : Patient negative for fever greater than or equal to 101.5 degrees Fahrenheit, and additional compatible Ebola Virus Disease symptoms No symptoms or risks identified at this time. ROS: 21:10 Constitutional: Negative for body aches, chills, fever, poor PO intake. cp 21:10 Eyes: Negative for injury, pain, redness, and discharge. cp 21:10 ENT: Negative for ear pain, sore throat, difficulty swallowing, difficulty handling secretions. 21:10 Cardiovascular: Negative for chest pain, edema. 21:10 Respiratory: Positive for cough, "sounds productive", shortness of breath, at rest. wheezing. 21:10 Abdomen/GI: Negative for abdominal pain, nausea, vomiting, and diarrhea. 21:10 Neuro: Negative for altered mental status, headache, weakness. 21:10 All other systems are negative. Exam: 21:11 ECG was reviewed by the Attending Physician. cp 21:15 Constitutional: The patient appears in no acute distress, alert, awake, cp non-diaphoretic, non-toxic, well developed, well nourished. 21:15 Head/Face: Normocephalic, atraumatic. cp 21:15 Eyes: Periorbital structures: appear normal, Conjunctiva: normal, no exudate, no injection, Sclera: no appreciated abnormality, Lids and lashes: appear normal, bilaterally. 21:15 ENT: External ear(s): are unremarkable, Nose: is normal, Mouth: Lips: moist, Oral mucosa: moist, Posterior pharynx: Airway: no evidence of obstruction, patent. 21:15 Neck: ROM/movement: is normal, is supple, without pain, no range of motions limitations, no meningismus. 21:15 Chest/axilla: Inspection: normal, Palpation: is normal, no crepitus, no tenderness. 21:15 Cardiovascular: Rate: tachycardic, Rhythm: regular, Edema: is not appreciated, JVD: is not appreciated. 21:15 Respiratory: the patient does not display signs of respiratory distress, Respirations: labored breathing, is not present, shallow respirations, that is mild, Breath sounds: decreased breath sounds, that are mild, throughout, stridor, is not appreciated, wheezing: that is mild, is heard diffusely. 21:15 Abdomen/GI: Inspection: abdomen appears normal, Palpation: abdomen is soft and non-tender, in all quadrants. 21:15 Back: pain, is absent, ROM is normal. 21:15 Neuro: Orientation: to person, place \\T\\ time. Mentation: is normal, Cerebellar function: is grossly normal, Motor: moves all fours, strength is normal, Sensation: no obvious gross deficits. Vital Signs: 20:26 BP 153 / 74; Pulse 101; Resp 20; Temp 98.8; Pulse Ox 99% on 3 lpm NC; cc4 20:26 BP 153 / 74; Pulse 101; Resp 20; Temp 98.8; Pulse Ox 99% on 3 lpm NC; cc4 21:00 BP 132 / 43; Pulse 99; Resp 20; Pulse Ox 96% on 2 lpm NC; cc4 22:00 BP 136 / 45; Pulse 95; Resp 22; Pulse Ox 99% on 2 lpm NC; cc4 23:00 BP 136 / 47; Pulse 100; Resp 20; Pulse Ox 98% on 2 lpm NC; cc4 07/22 00:00 BP 138 / 55; Pulse 101; Resp 20; Temp 98.2; Pulse Ox 97% on 2 lpm NC; cc4 01:10 BP 116 / 89; Pulse 115; Resp 24; Temp 98.1; Pulse Ox 91% on R/A; cc4 MDM: 07/21 20:56 Patient medically screened. cp 07/22 00:45 Data reviewed: vital signs, nurses notes, lab test result(s), EKG, radiologic studies, cp plain films. 01:15 ED course: Reevaluation: mild wheezing again noted throughout, patient denies shortness cp of breath. Discussed results of labs that returned showing H/H of 7.1/23.7 with comparison of H/H performed 05-15-2021 that returned . Potassium level 3.0. Recommend admission for continued monitoring, continued breathing treatments and possible blood transfusion. Patient refuses at this time and would like to go home. 07/21 20:57 Order name: Basic Metabolic Panel cp 07/21 20:57 Order name: CBC with Diff cp 07/21 20:57 Order name: LFT's; Complete Time: 22:45 cp 07/21 22:45 Interpretation: Normal except: BILIT 0.1; TP 6.0; ALB 2.9; A/G 0.9. cp 07/21 20:57 Order name: Magnesium; Complete Time: 22:45 cp 07/21 20:57 Order name: NT PRO-BNP; Complete Time: 22:45 cp 07/21 20:57 Order name: PT-INR; Complete Time: 22:03 cp 07/21 20:57 Order name: Troponin (emerg Dept Use Only); Complete Time: 22:45 cp 07/21 20:57 Order name: Influenza Screen (a \\T\\ B); Complete Time: 22:45 cp 07/21 20:57 Order name: Basic Metabolic Panel; Complete Time: 22:45 EDMS 07/21 22:46 Interpretation: Normal except: NA 146; K 3.0; CL 114; GLUC 146; BUN 35; GFR 51; CA 8.2. cp 07/21 20:57 Order name: CBC with Automated Diff; Complete Time: 22:22 EDMS 07/22 00:21 Interpretation: Normal except: RBC 3.14; HGB 7.1; HCT 23.7; MCV 75.4; MCH 22.6; MCHC cp 30.0; PLT 141; RDW 16.8; AVELINO% 89.3; LYM% 5.5; LYMA 0.5. 07/21 21:48 Order name: Manual Differential; Complete Time: 22:22 EDMS 07/21 21:54 Order name: SARS-COV-2 RT PCR; Complete Time: 00:20 EDMS 07/21 20:57 Order name: EKG; Complete Time: 20:58 cp 07/21 20:57 Order name: Cardiac monitoring; Complete Time: 21:18 cp 07/21 20:57 Order name: EKG - Nurse/Tech; Complete Time: 21:37 cp 07/21 20:57 Order name: IV Saline Lock; Complete Time: 21:37 cp 07/21 20:57 Order name: Labs collected and sent; Complete Time: 21:37 cp 07/21 20:57 Order name: O2 Per Protocol; Complete Time: 21:37 cp 07/21 20:57 Order name: O2 Sat Monitoring; Complete Time: 21:37 cp EC/28 21:11 Rate is 105 beats/min. Rhythm is regular. SD interval is normal. QRS interval is cp prolonged at 120 msec. QT interval is normal. T waves are Inverted in lead aVR. Interpreted by me. Reviewed by me. Administered Medications: 21:20 Drug: SOLU-Medrol (methylPrednisoLONE) 80 mg Route: IVP; Site: right wrist; cc4 22:00 Follow up: Response: No adverse reaction; Wheezing diminished cc4 07/22 00:21 CANCELLED (Physician Discretion): Lasix (furosemide) 20 mg IVP once; give over 2 minutescp 00:42 CANCELLED (Physician Discretion): Potassium Effervescent Tablet 50 mEq PO once; cp dissolve in 4 ounces of water or juice 00:46 CANCELLED (Physician Discretion): Potassium Chloride 40 mEq PO once cp 00:55 Drug: Ativan (LORazepam) 0.5 mg Route: IVP; Site: right forearm; cc4 01:10 Follow up: Response: No adverse reaction cc4 00:55 Drug: Potassium Effervescent Tablet 50 mEq Route: PO; cc4 01:10 Follow up: Response: No adverse reaction cc4 01:02 Not Given (Patient Refused): Xopenex (levalbuterol) (3) 1.25 mg Inhalation once cc4 Disposition: 03:44 Co-signature as Attending Physician, Vu Nice MD. 7 Disposition Summary: 07/22/21 00:47 Left Against Medical Advice Location: Home cp Problem: an acute exacerbation cp Symptoms: have improved cp Condition: Stable cp Diagnosis - Anemia in other chronic diseases classified elsewhere cp - COPD/ Chronic obstructive pulmonary disease with (acute) exacerbation cp - Hypokalemia cp Followup: cp - With: Private Physician - When: 1 - 2 days - Reason: Recheck today's complaints Discharge Instructions: - Discharge Summary Sheet cp - Anemia cp - Chronic Obstructive Pulmonary Disease Exacerbation cp - Hypokalemia cp Signatures: Dispatcher [employer] EDMS Humza Carrizales FNP-C P[employer]AG[employer]ATE-Cla1 Ronni Olson PA PA cp Vu Nice MD MD 7 Desire Romo RN RN cc4 Corrections: (The following items were deleted from the chart) 07/21 21:27 20:58 Chest Single View+RAD.RAD.BRZ ordered. EDMS EDMS 21:54 20:58 CORONAVIRUS+MR.LAB.BRZ ordered. EDMS EDMS 22:26 22:23 Chest Single View+RAD.RAD.BRZ ordered. EDMS EDMS 23:44 20:26 PMHx: Chronic obstructive lung disease; cc4 cc4 23:44 20:26 PMHx: History of urinary tract infection; cc4 cc4 07/22 00:00 07/21 20:26 Code Status: Full code cc4 cc4 07/22 00:10 07/21 20:26 Allergies: BuSpar [Inactive]; cc4 cc4 07/22 00:10 07/21 20:26 Allergies: myacin [Inactive]; cc4 cc4 07/22 00:10 07/21 20:26 Allergies: Protonix [Inactive]; cc4 cc4 07/22 00:10 07/21 20:26 Allergies: Tylenol-Codeine [Inactive]; cc4 cc4 07/22 00:10 07/21 20:26 Allergies: Ibuprofen [Inactive]; cc4 cc4 07/22 00:10 07/21 20:26 Allergies: Tylenol [Inactive]; cc4 cc4 07/22 00:10 07/21 20:26 PMHx: Carcinoma in situ of lung; cc4 cc4 07/22 00:21 00:20 Lasix (furosemide) 20 mg IVP once; give over 2 minutes ordered. cp cp 00:42 00:21 Potassium Effervescent Tablet 50 mEq PO once; dissolve in 4 ounces of water or cp juice ordered. cp 00:46 00:42 Potassium Chloride 40 mEq PO once ordered. cp cp 01:01 00:30 EKG - Nurse/Tech ordered. cp cc4 01:20 01:15 ED course: Reevaluation: mild wheezing again noted throughout, patient denies cp shortness of breath. Discussed results of labs that returned showing H/H of 7.1. cp
[2021-07-22] MEDS ORDERED: LORazepam 2 MG/ML VIAL ONE (01:01)
[2021-07-22] MEDS ORDERED: LEVALBUTEROL 1.25 MG/3 ML NEB ONE (01:03)
[2021-07-22] MEDS ORDERED: POTASSIUM 25 MEQ EFFERV TAB ONE ×2 (01:03→01:13)
[2021-07-22 02:00] VITALS: BP 116/89; TEMP 98.1; O2SAT 91
--- NOTE | 2021-07-22 07:45 | EKG ---
Test Date: 2021-07-21 Test Time: 21:07:30 [employer]: [facility] MEASUREMENT RESULTS: Intervals: Rate: 105 KS: 124 QRSD: 120 QT: 386 QTc: 510 [place]: P: 73 KS: 124 QRS: 65 T: 64 INTERPRETIVE STATEMENTS: Sinus tachycardia with frequent premature ventricular complexes Septal infarct, age undetermined Abnormal ECG Compared to ECG 05/20/2020 16:57:59 Ventricular premature complex(es) now present Myocardial infarct finding now present Left bundle-branch block no longer present Electronically Signed On 07-22-21 07:44:09 CDT by Lukas Jean Baptiste
== END 2021-07-22 01:24 | disposition left against medical advice (07) ==
LOC: ER 20:31
DX: J44.1 Chronic obstructive pulmonary disease with (acute) exacerbation (principal); D64.9 Anemia, unspecified; E87.6 Hypokalemia; Z20.822 Contact with and (suspected) exposure to COVID-19; Z85.118 Personal history of other malignant neoplasm of bronchus and lung; Z88.5 Allergy status to narcotic agent; Z88.6 Allergy status to analgesic agent; Z88.8 Allergy status to other drugs, medicaments and biological substances
CPT/HCPCS: 93005; 85025; 80048; 36415; 83735; 85610; 80076; 84484; 83880; 87804 ×2; 99284; U0003; J2920